=== PATIENT | female | born 1945 | race Caucasian/White ===

== ENCOUNTER 2020-03-27 16:39 | Emergency (ER) | payer OTHER, MEDICARE ==
--- OUTSIDE RECORDS SUMMARY | 2020-03-27 16:42 | XMS REPORT | Continuity of Care Document ---
:[address] [facility] t Address [address] [place] [address] Care Team Providers Name Role Phone Radiology Attending Clinician Unavailable Doctor Unassigned, Name Attending Clinician Unavailable Problems This patient has no known problems. Allergies, Adverse Reactions, Alerts Allergy Allergy Status Severity Reaction(s) Onset Inactive Treating Comm ents Source Name Type Date Date Clinician Tramadol Adverse Active Rash [facility] HCl [facility] Codeine Adverse Active sick in [facility] Sulfate Reaction stomach [facility] Medications Ordered Filled Start Stop Current Ordering Indication Dosage Frequency Signature Comments Components Source Medication Medication Date Date Medication? Clinician (SIG) Name Name Olmesartan Olmesartan Yes Marvin 1/[address] [facility] Medoxomil Medoxomil [facility] Amlodipine Amlodipine Yes Marvin 1/[address] [facility] Besylate Besylate [facility] Acyclovir Acyclovir Yes Marvin 1-[address] [facility] tablets [facility] Atorvastati Atorvastati Yes Marvin [address] [facility] n Calcium n Calcium [facility] Daily Daily Yes Marvin not [facility] Vitamins Vitamins [facility] defined [facility] Loratadine Loratadine Yes Marvin [address] [facility] Fiber Fiber Yes Marvin not [facility] Choice Choice [facility] defined [facility] Ibuprofen Ibuprofen Yes Marvin not [facility] Aspir-81 Aspir-81 Yes Marvin [address] [facility]ics Alphagan P Alphagan P Yes Marvin [address] [facility] Equate Equate Yes Marvin not [facility] Procedures This patient has no known procedures. Encounters Start End Encounter Admission Attending Care Care Encounter Source Date/Time Date/Time Type Type Clinicians Facility Department ID 2020-03-25 2020-03-25 Outpatient [facility] [id number] [facility] 2020-03-24 2020-03-24 [facility] [id number] [facility] 2020-03-18 2020-03-18 Out[facility] [id number] [facility] 2020-02-04 2020-02-04 Out[facility] [id number] [facility] 2020-01-24 2020-01-24 Out[facility] [id number] [facility] 2020-01-14 2020-01-14 [facility] Radiology [facility] [id number] 11:45:29 23:59:00 Encounter [place] [id number] [place] [id number] [place] [id number] 2020-01-14 2020-01-14 Orders Doctor ROSS [id number] 00:00:00 00:00:00 Only Unassigned, MARIA [id number] [place] [facility] [id number] 2019-11-13 2019-11-13 [facility] [id number] [facility] 15:40:00 15:40:00 [facility] 2019-09-20 2019-09-20 [facility] [id number] [address] 07:38:00 07:38:00 [facility] 2019-08-22 2019-08-22 [facility] [id number] [address] 13:35:00 13:35:00 [facility] 2019-08-19 2019-08-19 [facility] [id number] [address] 13:23:00 13:23:00 [facility] 2019-08-12 2019-08-12 [facility] [id number] 15:01:00 15:01:00 [facility] 2019-08-08 2019-08-08 [facility] [id number] [address] 13:00:00 13:00:00 [facility] 2019-08-08 2019-08-08 [facility] [id number] 13:00:00 13:00:00 [facility] 2019-06-04 2019-06-04 [facility] [id number] 10:49:00 10:49:00 [facility] Results This patient has no known results.
--- OUTSIDE RECORDS SUMMARY | 2020-03-27 16:42 | XMS REPORT ---
:1945 Author Organization [facility] Address [address] [place], [address] [place] [address] Care Team Providers Name Role Phone Alexander Unavailable [phone] PROBLEMS Type Condition ICD9-CM NAF71-LS Onset Condition SNOMED Code Notes Code Code Dates Status Problem Non-seasonal J30.89 Active 31342934 allergic rhinitis, unspecified trigger Problem CLL (chronic C91.10 Active 84693919 lymphocytic leukemia) Problem Constipation, K59.00 Active 41403870 unspecified constipation type Problem Herpes zoster with B02.30 Active 211308039 ophthalmic complication, unspecified herpes zoster eye disease Problem Tinnitus, H93.19 Active 62137286 unspecified laterality Problem Primary M15.0 Active 727703079 osteoarthritis involving multiple joints Problem Primary insomnia F51.01 Active 0021228 Problem Mixed E78.2 Active 071529136 hyperlipidemia Problem Essential I10 Active 84803640 hypertension ALLERGIES Allergen (clinical Drug/Non Drug Reaction Allergy Type Onset Date S tatus drug ingredient) Allergy documented on EMR codeine Codeine sick in stomach Drug Allergy Active Sulfate(NDC Code:[address]-37 ) tramadol Tramadol HCl(ND Rash Drug Allergy Active Code:[address]-66 ) ENCOUNTERS from 1945 to 2020-03-26 Encounter Location Date Provider [facility] [address], [place] [address] IMMUNIZATIONS No Information SOCIAL HISTORY Tobacco Use: Social History Observation Description Date Details (start date - stop date) Former Smoker Sex Assigned At : Social History Observation Description Sex Assigned At Unknown Alcohol Screen Question Answer Notes Did you have a drink containing alcohol in the past Yes year? Points 1 Interpretation Negative How often did you have a drink containing alcohol in Monthly or less (1 point) the past year? Tobacco Use/Smoking Question Answer Notes Are you a former smoker REASON FOR REFERRAL No Information VITAL SIGNS No information MEDICATIONS Medication SIG (Take, Route, Notes Start Date End Date Status Frequency, Duration) Amlodipine Besylate 5 MG 1 tablet Orally Once a Active day for 90 days Ibuprofen Active Acyclovir 400 MG 1-3 tablets Orally Once a Active day Atorvastatin Calcium 40 MG 1 tablet Orally Once a Active day for 90 days Loratadine 10 MG 1 tablet Orally Once a Active day Equate Active Daily Vitamins Active Alphagan P 0.1 % 1 drop into affected eye Active Ophthalmic every 8 hrs Olmesartan Medoxomil 40 MG 1 tablet Orally Once a Active day for 90 days Aspir-81 81 MG 1 tablet Orally Once a Active day Fiber Choice Active PROCEDURES No Information RESULTS No Results REASON FOR VISIT BP, Olmesartan dose MEDICAL (GENERAL) HISTORY Type Description Date Surgical History knee surgery-meniscus 2010 Goals Section No Information Health Concerns No Information MEDICAL EQUIPMENT No Information MENTAL STATUS No Information FUNCTIONAL STATUS No Information ASSESSMENTS No Information PLAN OF TREATMENT No Information Insurance Providers Payer Name Payer Address Payer Insured Patient Coverage Cover age Phone Name Relationship to Start Date End Date Insured [facility] [address] [phone] Donna Main self 2019 [facility] [address] [phone] MEDICARE Attn Part B [id number] Donna Main self 2009 [facility] Claims [address] [facility] [address]
--- NOTE | 2020-03-27 21:00 | RAD REPORT ---
EXAM DESCRIPTION: RAD - Chest Single View - 03/27/2020 8:22 pm CLINICAL HISTORY: PALPITATIONS COMPARISON: Two view chest October 2016 TECHNIQUE: AP portable chest image was obtained 03/27/2020 8:22 pm . FINDINGS: Lungs are clear of acute finding. Heart and vasculature are normal. No measurable pleural effusion and no pneumothorax. No acute bony abnormality seen. No acute aortic findings suspected. IMPRESSION: No acute cardiopulmonary process.
[2020-03-27 21:17] LABS: Absolute Lymphocytes (CBC) 3.2 K/uL (0.7-4.9); Basophils % 0.5 % (0-1.3); Hematocrit 37.4 % (36.0-45.0); Lymphocytes % 36.7 % (15.3-44.8); MPV 8.1 fL (7.6-11.3); RBC Red Blood Cell Count 4.21 M/uL (3.86-4.86)
[2020-03-27 21:44] LABS: ALT/SGPT 31 U/L (12-78); AST/SGOT 16 U/L (15-37); Albumin 4.1 g/dL (3.4-5.0); Alkaline Phosphatase 91 U/L (45-117); BUN Blood Urea Nitrogen 11 mg/dL (7-18); Bicarbonate 26 mmol/L (21-32); Bilirubin Direct 0.2 mg/dL (0-0.2); Bilirubin Total 0.9 mg/dL (0.2-1.0); Glucose Level 96 mg/dL (74-106); Lipase 124 U/L (73-393); Magnesium 2.4 mg/dL (1.8-2.4); NT PRO-BNP 66 pg/mL (<450); Potassium 3.9 mmol/L (3.5-5.1); Protein, Total 7.7 g/dL (6.4-8.2); Sodium Level 136 mmol/L (136-145); Troponin (Emerg Dept Use Only) 0.02 ng/mL (0.0-0.045)
--- NOTE | 2020-03-27 23:08 | ER ---
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 And I feel real queazy and ca1 a little nauseous and I feel my heart racing. I was in [place] on Monday for the same thing. Coronavirus screen: Client denies travel out of the [place] in the last 14 days. Ebola Screen: Patient negative for fever greater than or equal to 101.5 degrees Fahrenheit, and additional compatible Ebola Virus Disease symptoms Patient denies exposure to infectious person. Patient denies travel to an Ebola-affected area in the 21 days before illness onset. No symptoms or risks identified at this time. Initial Sepsis Screen: Does the patient meet any 2 criteria? No. Patient's initial sepsis screen is negative. Does the patient have a suspected source of infection? No. Patient's initial sepsis screen is negative. Risk Assessment: Do you want to hurt yourself or someone else? Patient reports no desire to harm self or others. Onset of symptoms was March 27, 2020. 16:46 Method Of Arrival: Ambulatory ca1 16:46 Acuity: SUZETTE 3 ca1 Historical: - Allergies: 16:52 Codeine; ca1 - Home Meds: 16:52 Acyclovir Oral [Active]; atorvastatin 40 mg oral tab 1 tab once daily [Active]; ca1 olmesartan oral 40 mg oral 1 tab once daily [Active]; amlodipine 5 mg tab 1 tab once daily [Active]; - PMHx: 16:52 Hypertension; High Cholesterol; ca1 - Immunization history:: Pneumococcal vaccine is up to date, Flu vaccine is up to date. - Social history:: Smoking status: Patient denies any tobacco usage or history of. Screenin:00 Abuse screen: Denies threats or abuse. Denies injuries from another. Nutritional wh screening: No deficits noted. Tuberculosis screening: No symptoms or risk factors identified. Fall Risk None identified. Assessment: 20:00 General: Appears in no apparent distress. Behavior is calm, cooperative, appropriate wh for age. Pain: Denies pain. Neuro: Level of Consciousness is awake, alert, obeys commands, Oriented to person, place, time, situation. Cardiovascular: Heart tones S1 S2. Cardiovascular: Reports palpitations, Rhythm is sinus rhythm. Respiratory: Airway is patent Respiratory effort is even, unlabored, Respiratory pattern is regular, symmetrical. GI: No signs and/or symptoms were reported involving the gastrointestinal system. : No signs and/or symptoms were reported regarding the genitourinary system. EENT: No signs and/or symptoms were reported regarding the EENT system. Derm: Skin is intact, is healthy with good turgor, Skin is pink, warm \T\ dry. normal. Musculoskeletal: Circulation, motion, and sensation intact. 21:30 Reassessment: Patient appears in no apparent distress at this time. No changes from previously documented assessment. Patient and/or family updated on plan of care and expected duration. Pain level reassessed. Patient is alert, oriented x 3, equal unlabored respirations, skin warm/dry/pink. 23:00 Reassessment: Patient appears in no apparent distress at this time. Patient and/or family updated on plan of care and expected duration. Pain level reassessed. Patient is alert, oriented x 3, equal unlabored respirations, skin warm/dry/pink. 23:17 Reassessment: Patient and/or family updated on plan of care and expected duration. Pain ea level reassessed. Patient is alert, oriented x 3, equal unlabored respirations, skin warm/dry/pink. Discharge instruction given to patient, verbalized the understanding of instruction. Pt left ED ambulatory tolerating well. Pt awaiting in the lobby. Vital Signs: 16:46 BP 146 / 84; Pulse 78; Resp 17 S; Temp 97.7(TE); Pulse Ox 100% on R/A; Weight 78.47 kg ca1 (R); Height 5 ft. 4 in. (162.56 cm) (R); Pain 0/10; 21:00 BP 146 / 73; Pulse 71; Resp 18; Pulse Ox 98% on R/A; wh 22:00 BP 138 / 78; Pulse 66; Resp 18; Pulse Ox 99% on R/A; wh 23:00 BP 157 / 88; Pulse 74; Resp 18; Pulse Ox 99% on R/A; wh 16:46 Body Mass Index 29.70 (78.47 kg, 162.56 cm) ca1 ED Course: 16:41 Patient arrived in ED. ag5 16:50 Triage completed. ca1 16:52 Arm band placed on right wrist. [facility] 19:50 Shaun Dumont MD is Attending Physician. [facility] 19:58 Paolo Amaya, RN is Primary Nurse. 20:00 Patient has correct armband on for positive identification. Placed in gown. Bed in low wh position. Call light in reach. Side rails up X 1. school lunch monitor on. Pulse ox on. NIBP on. 20:15 Inserted saline lock: 22 gauge in right forearm, using aseptic technique. by [facility] Tech. 20:19 XRAY Chest (1 view) In Process Unspecified. EDMS 23:07 Gordon Lott MD is Referral Physician. [facility] 23:13 No provider procedures requiring assistance completed. IV discontinued, intact, wh bleeding controlled, No redness/swelling at site. Administered Medications: No medications were administered Outcome: 23:08 Discharge ordered by . [facility] 23:17 Discharged to home ambulatory, with family. ea 23:17 Condition: stable 23:17 Discharge instructions given to patient, Instructed on discharge instructions, follow up and referral plans. Demonstrated understanding of instructions, follow-up care. 23:18 Patient left the ED. ea Signatures: Dispatcher [employer] EDHailey Osborne RN RN ea Habalo, Winsy, BRYSON MASSEY Wanda Cortez RN RN [facility] Roger Cunha 5 Shaun Dumont MD MD [facility]
--- NOTE | 2020-03-27 23:09 | EDPHYS ---
Physician Documentation [facility] Name: Abby Main Age: 74 yrs Sex: Female : 1945 Arrival Date: 03/27/2020 Time: 16:41 Bed 7 Private MD: ED Physician Shaun Dumont HPI: 03/27 20:10 This 74 yrs old Female presents to ER via Ambulatory with complaints of mh7 Increased Heart Rate, High Blood Pressure. 20:10 The patient presents with a history of heart racing. Context: The symptoms occur at mh7 rest. Onset: The symptoms/episode began/occurred last week. Duration: The patient or guardian reports multiple episodes, that are intermittent, that wax and wane. Modifying factors: The symptoms are aggravated by anxiety, The symptoms are alleviated by nothing. Associated signs and symptoms: Pertinent positives: nausea, Pertinent negatives: chest pain, cough, fever, lightheadedness, SOB, syncope, near-syncope, unusual stressors, vertigo, vomiting. Severity of symptoms: At their worst the symptoms were moderate last night, in the emergency department the symptoms have improved moderately. The patient has experienced similar episodes in the past, several times. Seen at an ER last week for the same complaint with no findings. Historical: - Allergies: 16:52 Codeine; ca1 - Home Meds: 16:52 Acyclovir Oral [Active]; atorvastatin 40 mg oral tab 1 tab once daily [Active]; ca1 olmesartan oral 40 mg oral 1 tab once daily [Active]; amlodipine 5 mg tab 1 tab once daily [Active]; - PMHx: 16:52 Hypertension; High Cholesterol; ca1 - Immunization history:: Pneumococcal vaccine is up to date, Flu vaccine is up to date. - Social history:: Smoking status: Patient denies any tobacco usage or history of. ROS: 20:10 Constitutional: Negative for fever, chills, and weight loss, Eyes: Negative for injury, mh7 pain, redness, and discharge, ENT: Negative for injury, pain, and discharge, Neck: Negative for injury, pain, and swelling, Respiratory: Negative for shortness of breath, cough, wheezing, and pleuritic chest pain, Back: Negative for injury and pain, : Negative for injury, bleeding, discharge, and swelling, MS/Extremity: Negative for injury and deformity, Skin: Negative for injury, rash, and discoloration, Neuro: Negative for headache, weakness, numbness, tingling, and seizure, Psych: Negative for depression, anxiety, suicide ideation, homicidal ideation, and hallucinations, Allergy/Immunology: Negative for hives, rash, and allergies, Endocrine: Negative for neck swelling, polydipsia, polyuria, polyphagia, and marked weight changes, Hematologic/Lymphatic: Negative for swollen nodes, abnormal bleeding, and unusual bruising. Exam: 20:10 Constitutional: This is a well developed, well nourished patient who is awake, alert, mh7 and in no acute distress. Head/Face: Normocephalic, atraumatic. Eyes: Pupils equal round and reactive to light, extra-ocular motions intact. Lids and lashes normal. Conjunctiva and sclera are non-icteric and not injected. Cornea within normal limits. Periorbital areas with no swelling, redness, or edema. Neck: Trachea midline, no thyromegaly or masses palpated, and no cervical lymphadenopathy. Supple, full range of motion without nuchal rigidity, or vertebral point tenderness. No Meningismus. Chest/axilla: Normal chest wall appearance and motion. Nontender with no deformity. No lesions are appreciated. Cardiovascular: Regular rate and rhythm with a normal S1 and S2. No gallops, murmurs, or rubs. Normal PMI, no JVD. No pulse deficits. Respiratory: Lungs have equal breath sounds bilaterally, clear to auscultation and percussion. No rales, rhonchi or wheezes noted. No increased work of breathing, no retractions or nasal flaring. Abdomen/GI: Soft, non-tender, with normal bowel sounds. No distension or tympany. No guarding or rebound. No evidence of tenderness throughout. Back: No spinal tenderness. No costovertebral tenderness. Full range of motion. Skin: Warm, dry with normal turgor. Normal color with no rashes, no lesions, and no evidence of cellulitis. MS/ Extremity: Pulses equal, no cyanosis. Neurovascular intact. Full, normal range of motion. Neuro: Awake and alert, GCS 15, oriented to person, place, time, and situation. Cranial nerves II-XII grossly intact. Motor strength 5/5 in all extremities. Sensory grossly intact. Cerebellar exam normal. Normal gait. Psych: Awake, alert, with orientation to person, place and time. Behavior, mood, and affect are within normal limits. 23:09 ECG was reviewed by the Attending Physician. [facility] Vital Signs: 16:46 BP 146 / 84; Pulse 78; Resp 17 S; Temp 97.7(TE); Pulse Ox 100% on R/A; Weight 78.47 kg ca1 (R); Height 5 ft. 4 in. (162.56 cm) (R); Pain 0/10; 21:00 BP 146 / 73; Pulse 71; Resp 18; Pulse Ox 98% on R/A; wh 22:00 BP 138 / 78; Pulse 66; Resp 18; Pulse Ox 99% on R/A; wh 23:00 BP 157 / 88; Pulse 74; Resp 18; Pulse Ox 99% on R/A; wh 16:46 Body Mass Index 29.70 (78.47 kg, 162.56 cm) ca1 MDM: 23:06 Differential diagnosis: arrythmia, dehydration, stress disorder, Palpitations. Data [facility] reviewed: vital signs, nurses notes, lab test result(s), cardiac enzymes, CBC, electrolytes, urinalysis, EKG, radiologic studies, plain films. Data interpreted: Pulse oximetry: on room air is 100 %. Interpretation: normal. 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 Response to treatment: the patient's symptoms have resolved after treatment, the patient's blood pressure is in an acceptable range, mental status has returned to baseline, the patient no longer shows bradycardia, the patient is not short of breath, the patient is not tachycardic, the patient's pain is gone, the patient's temperature has normalized, the patient is now symptom free, patient is well hydrated. 23:08 Patient medically screened. [facility] 03/27 20:02 Order name: Basic Metabolic Panel [facility] 03/27 20: Order name: CBC with Diff; Complete Time: 21:32 7 03/27 20:02 Order name: LFT's; Complete Time: 21:56 7 03/27 20:02 Order name: Magnesium; Complete Time: 21:56 03/27 20:02 Order name: NT PRO-BNP; Complete Time: 21:56 7 03/27 20:02 Order name: PT-INR; Complete Time: 21:32 7 03/27 20:02 Order name: Troponin (emerg Dept Use Only); Complete Time: 21:56 03/27 20:02 Order name: XRAY Chest (1 view); Complete Time: 21:06 7 03/27 20:02 Order name: EKG; Complete Time: 20:03 7 03/27 20:02 Order name: Cardiac monitoring; Complete Time: 20:35 7 03/27 20:02 Order name: TSH; Complete Time: 21:56 7 03/27 20:03 Order name: Lipase; Complete Time: 21:56 [facility] 03/27 20:03 Order name: Basic Metabolic Panel; Complete Time: 21:56 [facility] 03/27 21:56 Order name: D-Dimer; Complete Time: 22:55 7 03/27 20:02 Order name: EKG - Nurse/Tech; Complete Time: 20:35 7 03/27 20:02 Order name: IV Saline Lock; Complete Time: 20:35 7 03/27 20:02 Order name: Labs collected and sent; Complete Time: 20:57 7 03/27 20:02 Order name: O2 Per Protocol; Complete Time: 20:35 03/27 20:02 Order name: O2 Sat Monitoring; Complete Time: 20:35 mh7 EC:09 Rate is 69 beats/min. Rhythm is regular, Normal Sinus Rhythm. QRS Albert is Normal. [place] mh7 interval is normal. QRS interval is normal. QT interval is normal. No Q waves. T waves are Normal. No ST changes noted. Clinical impression: Normal ECG. Administered Medications: No medications were administered Disposition: 03/27/20 23:08 Discharged to Home. Impression: Palpitations, Hypertension. - Condition is Stable. - Discharge Instructions: Hypertension, [id number], Palpitations, [id number]. - Medication Reconciliation Form, Thank You Letter, Antibiotic Education, Prescription Opioid Use form. - Follow up: Private Physician; When: 1 - 2 days; Reason: Worsening of condition, Recheck today's complaints, Continuance of care, Re-evaluation by your physician. Follow up: Gordon Lott MD; When: 1 - 2 days; Reason: Worsening of condition, Recheck today's complaints. - Problem is an ongoing problem. - Symptoms have improved. Signatures: Dispatcher [employer] EDHailye Osborne RN RN ea Acob, Cheryl, RN RN ca1 Holmes, Maurice, MD MD mh7 Corrections: (The following items were deleted from the chart) 23:18 23:08 03/27/2020 23:08 Discharged to Home. Impression: Palpitations; Hypertension. ea Condition is Stable. Forms are Medication Reconciliation Form, Thank You Letter, Antibiotic Education, Prescription Opioid Use. Follow up: Private Physician; When: 1 - 2 days; Reason: Worsening of condition, Recheck today's complaints, Continuance of care, Re-evaluation by your physician. Follow up: Gordon Lott; When: 1 - 2 days; Reason: Worsening of condition, Recheck today's complaints. Problem is an ongoing problem. Symptoms have improved. mh7
[2020-03-27 23:26] VITALS: TEMP 97.7
[2020-03-27 23:27] VITALS: O2SAT 99
[2020-03-27 23:28] VITALS: BP 157/88
== END 2020-03-27 23:18 | disposition home or self-care (01) ==
LOC: ER 16:39
DX: I10 Essential (primary) hypertension (principal); E78.00 Pure hypercholesterolemia, unspecified; Z88.5 Allergy status to narcotic agent
CPT/HCPCS: 36415; 71045; 80048; 80076; 83690; 83735; 83880; 84443; 84484; 85025; 85379; 85610; 93005; 99284

== ENCOUNTER 2020-04-14 14:51 | Observation (INO) | payer OTHER, MEDICARE ==
--- NOTE | 2020-04-14 18:17 | RAD REPORT ---
EXAM DESCRIPTION: RAD - Chest Single View - 04/14/2020 6:03 pm CLINICAL HISTORY: syncope COMPARISON: Portable March 27 TECHNIQUE: AP portable chest image was obtained 04/14/2020 6:03 pm . FINDINGS: No focal lung parenchymal process. Interstitial pattern is prominent but stable. No failur e or volume overload. Calcified granulomas are seen. Heart and vasculature are normal. No measurable pleural effusion and no pneumothorax. No acute bony abnormality seen. No acute aortic findings suspec snehal. IMPRESSION: No acute cardiopulmonary process. No significant change from comparison study.
[2020-04-14 18:25] LABS: Urine Bacteria <20 /HPF (<20); Urine RBC NONE SEEN /HPF (NONE SEEN)
[2020-04-14] MEDS ORDERED: MECLIZINE HCL 12.5 MG TAB ONE (18:25)
[2020-04-14] MEDS ORDERED: ONDANSETRON 4 MG/2 ML VIAL ONE ×2 (18:25→20:10)
[2020-04-14 18:54] LABS: Urine Blood NEGATIVE (NEG); Urine Glucose NEGATIVE (NEG); Urine Protein 2+ (NEG)
[2020-04-14 19:11] LABS: Absolute Lymphocytes (CBC) 2.3 K/uL (0.7-4.9); Basophils % 0.3 % (0-1.3); Lymphocytes % 18.3 % (15.3-44.8); MPV 8.1 fL (7.6-11.3); Protime INR 0.95; RBC Red Blood Cell Count 4.43 M/uL (3.86-4.86)
[2020-04-14 19:16] LABS: Albumin 4.4 g/dL (3.4-5.0); Bilirubin Direct 0.3 mg/dL (0-0.2); Magnesium 2.4 mg/dL (1.8-2.4); Potassium 4.1 mmol/L (3.5-5.1); Protein, Total 7.8 g/dL (6.4-8.2); Troponin (Emerg Dept Use Only) 0.03 ng/mL (0.0-0.045)
--- NOTE | 2020-04-14 19:53 | RAD REPORT ---
EXAM DESCRIPTION: CT - CTHCSPWOC - 04/14/2020 7:34 pm CLINICAL HISTORY: syncope, dizziness, hypotension COMPARISON: Neck Angio dated 04/14/2020 TECHNIQUE: Axial 5 mm thick images of the head were obtained. Axial 2 mm thick images of the cervic al spine were obtained with sagittal and coronal reconstruction images generated and reviewed. All CT scans are performed using dose optimization technique as appropriate and may include automated exposure control or mA/KV adjustment according to patient size. FINDINGS: No intracranial hemorrhage, mass, edema or acute intracranial finding. No suspicion for ac [place] infarction. No extra-axial fluid collections. Mastoid air cells and paranasal sinuses are clear. No globe or orbit abnormality seen. Arterial calcifications are present. Atrophy and chronic ischemic changes. Ventricles are normal. Cervical body height and alignment are normal. C5-6 disc space narrowing present with posterior endpl ate spurring. Facet degenerative changes are present. There is mild right foraminal encroachment at C 3-4 and C4-5. Significant right foraminal stenosis at C5-6. Large central canal bone spur right later al margin may impact on the cord. No fracture or acute bony abnormality. Central canal detail is inh erently limited. No paraspinal mass or hematoma. IMPRESSION: Negative CT head examination for acute or significant finding. Cervical spine degenerative changes are present. Changes are pronounced at C5-6 where there is signif icant right foraminal stenosis and possible flattening of the right side of the cord.
--- NOTE | 2020-04-14 19:55 | RAD REPORT ---
EXAM DESCRIPTION: CT - Head angio - 04/14/2020 7:34 pm CLINICAL HISTORY: SYNCOPE, stroke-like symptoms TECHNIQUE: During dynamic enhancement using nonionic IV contrast, axial 1 millimeter thick images of the head were obtained. Sagittal and axial reconstruction images were generated using MIP technique and reviewed. All CT scans are performed using dose optimization technique as appropriate and may include automated exposure control or mA/KV adjustment according to patient size. COMPARISON: CT head same date FINDINGS: No aneurysm or vascular malformation identified. Major venous sinuses are patent. No stenosis, named branch occlusion, vasculitis or other significant vascular finding identifiable. P atient has a large right-sided posterior communicating artery is a normal variant. Internal carotid a therosclerotic calcifications are present without luminal narrowing. IMPRESSION: Negative CT angio head examination for acute or significant finding.
--- NOTE | 2020-04-14 19:56 | RAD REPORT ---
EXAM DESCRIPTION: CT - Neck Angio - 04/14/2020 7:34 pm CLINICAL HISTORY: syncope after eppley maneuver TECHNIQUE: During dynamic enhancement using nonionic IV contrast, axial 2 mm thick images of the nec k were obtained. Sagittal and axial reconstruction images were generated using MIP technique and revi ewed. All CT scans are performed using dose optimization technique as appropriate and may include automated exposure control or mA/KV adjustment according to patient size. COMPARISON: CT head same date, CT angio head same date FINDINGS: No aneurysm or vascular malformation identified. No carotid or vertebral dissection. No aortic arch or great vessel origin abnormality seen. Vertebral artery origins unremarkable as well . No stenosis, vasculitis or other significant carotid artery finding. No focal abnormality of either vertebral artery. Basilar artery is normal. Minimal left carotid bulb calcifications. IMPRESSION: Negative CT angio neck examination for acute significant finding.
[2020-04-14] MEDS ORDERED: NA CHLORIDE 0.9% 250 ML ONE (20:10)
--- NOTE | 2020-04-14 21:20 | ER ---
Nurse's Notes [facility] Name: Abby Main Age: 74 yrs Sex: Female : 1945 Arrival Date: 04/14/2020 Time: 14:53 Bed 13 Private MD: Diagnosis: Syncope and collapse;Hypotension, unspecified;Dizziness and giddiness Presentation: 04/14 15:01 Chief complaint: Patient states: Was at Dr. Mcgrath's for dizziness. States she passed ll1 out. BP was 91/45 upon awakening. Sent for further eval of dizziness and low BP. Coronavirus screen: Client denies travel out of the [place] in the last 14 days. At this time, the client does not indicate any symptoms associated with coronavirus-19. Ebola Screen: Patient denies travel to an Ebola-affected area in the 21 days before illness onset. Initial Sepsis Screen: Does the patient meet any 2 criteria? No. Patient's initial sepsis screen is negative. Does the patient have a suspected source of infection? No. Patient's initial sepsis screen is negative. Risk Assessment: Do you want to hurt yourself or someone else? Patient reports no desire to harm self or others. Onset of symptoms was April 14, 2020. 15:01 Method Of Arrival: Wheelchair ll1 15:01 Acuity: SUZETTE 2 ll1 Historical: - Allergies: 15:00 Codeine; ll1 15:00 Tramadol HCl; ll1 15:00 Cipro PO; ll1 - PMHx: 15:00 High Cholesterol; Hypertension; ll1 - Immunization history:: Flu vaccine is not up to date. - Social history:: Smoking status: Patient denies any tobacco usage or history of. Screenin:15 Abuse screen: Denies threats or abuse. Nutritional screening: No deficits noted. vg1 Tuberculosis screening: No symptoms or risk factors identified. Fall Risk No fall in past 12 months (0 pts). No secondary diagnosis (0 pts). IV access (20 points). Ambulatory Aid- None/Bed Rest/Nurse Assist (0 pts). Gait- Normal/Bed Rest/Wheelchair (0 pts) Mental Status- Oriented to own ability (0 pts). Total Conte Fall Scale indicates No Risk (0-24 pts). Assessment: 17:14 General: Appears in no apparent distress. comfortable, Behavior is calm, appropriate vg1 for age. Pain: Denies pain. Neuro: Level of Consciousness is awake, alert, obeys commands, Oriented to person, place, time, situation. Neuro: Reports dizziness. Cardiovascular: Patient's skin is warm and dry. Respiratory: Airway is patent Respiratory effort is even, unlabored, Respiratory pattern is regular, symmetrical. GI: Reports nausea. : No signs and/or symptoms were reported regarding the genitourinary system. EENT: No signs and/or symptoms were reported regarding the EENT system. Derm: Skin is intact, is healthy with good turgor. Musculoskeletal: Circulation, motion, and sensation intact. 18:52 Reassessment: Patient appears in no apparent distress at this time. No changes from vg1 previously documented assessment. Patient and/or family updated on plan of care and expected duration. Pain level reassessed. Patient is alert, oriented x 3, equal unlabored respirations, skin warm/dry/pink. 19:48 Reassessment: Patient appears in no apparent distress at this time. Patient and/or vg1 family updated on plan of care and expected duration. Pain level reassessed. Patient is alert, oriented x 3, equal unlabored respirations, skin warm/dry/pink. Patient stated still feels nauseated. Provider notified. 19:58 Reassessment: Received VO from Kevin COSTA to administer 4 mg of Zofran IVP x1. vg1 20:49 Reassessment: After orthostatic BP, patient stated feeling nauseated and lightheaded. vg1 Provider notified. 21:08 Reassessment: Received VO from Kevin COSTA to administer Phenergan 12.5 mg IVP x1. vg1 22:18 Reassessment: Received VO from Gerald COSTA to administer 2 mg Valium IVP x1, NS 1000 ml at vg1 75ml/hr, and place O2 2L NC. 23:13 Reassessment: Attempted to call report. vg1 Vital Signs: 15:01 BP 89 / 52; Pulse 63; Resp 16; Temp 97.6; Pulse Ox 97% ; Weight 77.56 kg; Height 5 ft. ll1 4 in. (162.56 cm); Pain 0/10; 17:14 BP 154 / 87; Pulse 80; Resp 16; Pulse Ox 100% on R/A; vg1 18:00 BP 134 / 68; Pulse 80; Resp 18; Pulse Ox 100% on R/A; vg1 19:00 BP 122 / 61; Pulse 77; Resp 16; Pulse Ox 100% on R/A; vg1 20:38 BP 127 / 55 Supine; Pulse 80; vg1 20:41 BP 123 / 63 Sitting; Pulse 80; vg1 20:44 BP 111 / 81 Standing; Pulse 100; vg1 22:00 BP 130 / 80; Pulse 73; Resp 14; Pulse Ox 100% on 2 lpm NC; vg1 23:09 BP 111 / 54; Pulse 70; Resp 18; Pulse Ox 100% on 2 lpm NC; vg1 15:01 Body Mass Index 29.35 (77.56 kg, 162.56 cm) ll1 ED Course: 14:53 Patient arrived in ED. as 14:59 Arm band placed on. ll1 15:02 Triage completed. ll1 17:09 Merry Vaughn, RN is Primary Nurse. vg1 17:15 Patient has correct armband on for positive identification. Bed in low position. Call 1 light in reach. Side rails up X 1. 17:23 Kevin Zamudio PA is PHCP. cp 17:23 Kevin Landis MD is Attending Physician. cp 18:04 XRAY Chest (1 view) In Process Unspecified. EDMS 18:36 Missed attempt(s): 22 gauge in right antecubital area. vg1 18:44 Initial lab(s) drawn, by ED staff, sent to lab. Inserted saline lock: 22 gauge in right vg1 antecubital area, using aseptic technique. Blood collected. Done by Mei MASSEY. 19:34 CT Head Angio In Process Unspecified. EDMS 19:34 CT Neck Angio In Process Unspecified. EDMS 19:34 CT Head C Spine In Process Unspecified. EDMS 21:18 Marcio Shaw is Hospitalizing Provider. cp 23:19 No provider procedures requiring assistance completed. Patient admitted, IV remains in vg1 place. Administered Medications: 18:43 Drug: Meclizine 25 mg Route: PO; vg1 20:48 Follow up: Response: No adverse reaction vg1 18:52 Drug: Zofran (Ondansetron) 4 mg Route: IVP; Site: right antecubital; vg1 19:30 Follow up: Response: No adverse reaction; Nausea unchanged vg1 19:57 Drug: NS 0.9% 250 ml Route: IV; Rate: bolus; Site: right antecubital; vg1 20:47 Follow up: IV Status: Completed infusion; IV Intake: 250ml vg1 19:58 Drug: Zofran (Ondansetron) 4 mg Route: IVP; Site: right antecubital; vg1 20:48 Follow up: Response: Nausea unchanged vg1 21:25 Drug: Phenergan 12.5 mg Route: IVP; Site: right antecubital; vg1 22:16 Follow up: Response: Nausea unchanged vg1 22:37 Drug: NS 0.9% 1000 ml Route: IV; Rate: 75 ml/hr; Site: right antecubital; vg1 23:19 Follow up: IV Status: Infusion continued upon admission vg1 22:37 Drug: Valium 2 mg Route: IVP; Site: right antecubital; vg1 23:19 Follow up: Response: No adverse reaction vg1 Intake: 20:47 IV: 250ml; Total: 250ml. vg1 Outcome: 21:19 Decision to Hospitalize by Provider. cp 23:19 Admitted to Tele accompanied by tech, via wheelchair, room 231, with chart, Report vg1 called to BRYSON Colvin 23:19 Condition: stable 23:19 Instructed on the need for admit. 23:29 Patient left the ED. vg1 Signatures: Dispatcher [employer] Susan Valles Corey, PA PA cp Garcia, Victoria RN RN vg1 Nisa Kim RN RN ll1
--- NOTE | 2020-04-14 21:20 | EDPHYS ---
Physician Documentation [facility] Name: Abby Main Age: 74 yrs Sex: Female : 1945 Arrival Date: 04/14/2020 Time: 14:53 Bed 13 Private MD: ED Physician Kevin Landis HPI: 04/14 17:25 This 74 yrs old Female presents to ER via Wheelchair with complaints of Blood cp Pressure Problem. 17:25 The patient has experienced syncope, lost consciousness. cp 17:25 Onset: The symptoms/episode began/occurred today. Duration: This was a single episode, cp that lasted an unknown period of time. Context: the episode(s) was witnessed, Nurse Practitioner, Patient reports she was at ENT appt with JAY JAY Felton for dizziness. Patient reports having Eply Maneuver performed and when head was turned to right, she lost consciousness for unknown duration. Associated injury: The patient did not suffer any apparent associated injury. Current symptoms: nausea, dizziness. Historical: - Allergies: 15:00 Codeine; ll1 15:00 Tramadol HCl; ll1 15:00 Cipro PO; ll1 - PMHx: 15:00 High Cholesterol; Hypertension; ll1 - Immunization history:: Flu vaccine is not up to date. - Social history:: Smoking status: Patient denies any tobacco usage or history of. ROS: 17:27 Constitutional: Negative for body aches, chills, fever, poor PO intake. cp 17:27 Eyes: Negative for injury, pain, redness, and discharge. cp 17:27 ENT: Negative for ear pain, sore throat, difficulty swallowing, difficulty handling secretions. 17:27 Neck: Negative for pain with movement, pain at rest, stiffness. 17:27 Cardiovascular: Negative for chest pain, edema, palpitations. 17:27 Respiratory: Negative for cough, shortness of breath, wheezing. 17:27 Abdomen/GI: Positive for nausea, Negative for abdominal pain, vomiting, diarrhea, constipation, black/tarry stool, rectal bleeding. 17:27 Back: Negative for pain at rest, pain with movement. 17:27 : Negative for urinary symptoms. 17:27 Skin: Negative for rash. 17:27 Neuro: Positive for dizziness, syncope, Negative for altered mental status, numbness, tingling, weakness. 17:27 All other systems are negative. Exam: 17:27 ECG was reviewed by the Attending Physician. cp 17:30 Constitutional: The patient appears in no acute distress, alert, awake, cp non-diaphoretic, non-toxic, well developed, well nourished. 17:30 Head/Face: Normocephalic, atraumatic. cp 17:30 Eyes: Periorbital structures: appear normal, Pupils: equal, round, and reactive to light and accomodation, Extraocular movements: intact throughout, Conjunctiva: normal, no exudate, no injection, Sclera: no appreciated abnormality. 17:30 ENT: External ear(s): are unremarkable, Ear canal(s): are normal, clear, TM's: dullness, bilaterally, Nose: is normal, Mouth: Lips: moist, Oral mucosa: moist, Posterior pharynx: Airway: no evidence of obstruction, patent. 17:30 Neck: ROM/movement: is normal, is supple, without pain, no range of motions limitations. 17:30 Chest/axilla: Inspection: normal, Palpation: is normal, no crepitus, no tenderness. 17:30 Cardiovascular: Rate: normal, Rhythm: regular, Edema: is not appreciated, JVD: is not appreciated. 17:30 Respiratory: the patient does not display signs of respiratory distress, Respirations: normal, no use of accessory muscles, no retractions, labored breathing, is not present, Breath sounds: are clear throughout, no decreased breath sounds, no stridor, no wheezing. 17:30 Abdomen/GI: Inspection: abdomen appears normal, Bowel sounds: active, all quadrants, Palpation: abdomen is soft and non-tender, in all quadrants. 17:30 Back: pain, is absent, ROM is normal. 17:30 Skin: no rash present. 17:30 Neuro: Orientation: to person, place \T\ time. Mentation: is normal, Cerebellar function: is grossly normal, Motor: moves all fours, strength is normal, Sensation: is normal. Vital Signs: 15:01 BP 89 / 52; Pulse 63; Resp 16; Temp 97.6; Pulse Ox 97% ; Weight 77.56 kg; Height 5 ft. ll1 4 in. (162.56 cm); Pain 0/10; 17:14 BP 154 / 87; Pulse 80; Resp 16; Pulse Ox 100% on R/A; vg1 18:00 BP 134 / 68; Pulse 80; Resp 18; Pulse Ox 100% on R/A; vg1 19:00 BP 122 / 61; Pulse 77; Resp 16; Pulse Ox 100% on R/A; vg1 20:38 BP 127 / 55 Supine; Pulse 80; vg1 20:41 BP 123 / 63 Sitting; Pulse 80; vg1 20:44 BP 111 / 81 Standing; Pulse 100; vg1 22:00 BP 130 / 80; Pulse 73; Resp 14; Pulse Ox 100% on 2 lpm NC; vg1 23:09 BP 111 / 54; Pulse 70; Resp 18; Pulse Ox 100% on 2 lpm NC; vg1 15:01 Body Mass Index 29.35 (77.56 kg, 162.56 cm) ll1 MDM: 17:24 Patient medically screened. briana 18:00 Differential Diagnosis: cardiac arrhythmia, cerebrovascular accident, GI bleed, cp seizure, vasovagal episode. 21:20 Data reviewed: vital signs, nurses notes, lab test result(s), EKG, radiologic studies, cp CT scan, plain films. 21:20 Test interpretation: by ED physician or midlevel provider: ECG, plain radiologic cp studies. Physician consultation: Gerald COSTA was contacted at 21:20, regarding admission, to the telemetry unit. patient's condition. 04/14 17:40 Order name: Basic Metabolic Panel cp 04/14 17:40 Order name: CBC with Diff; Complete Time: 19:43 cp 04/14 19:43 Interpretation: Normal except: WBC 12.80; SANDOR% 78.7; MN% 2.5; NEUT A 10.0. cp 04/14 17:40 Order name: LFT's; Complete Time: 19:43 cp 04/14 20:01 Interpretation: Normal except: BILID 0.3. cp 04/14 17:40 Order name: Magnesium; Complete Time: 19:43 cp 04/14 17:40 Order name: NT PRO-BNP; Complete Time: 19:43 cp 04/14 17:40 Order name: PT-INR; Complete Time: 19:43 cp 04/14 17:40 Order name: CT Head C Spine; Complete Time: 19:59 cp 04/14 17:40 Order name: Troponin (emerg Dept Use Only); Complete Time: 19:43 cp / 17:40 Order name: XRAY Chest (1 view); Complete Time: 19:08 cp 04/14 17:40 Order name: Urine Microscopic Only; Complete Time: 19:08 cp 04/14 17:40 Order name: Basic Metabolic Panel; Complete Time: 19:43 EDMS 04/14 19:43 Interpretation: Normal except: NA 131; CL 94; GLUC 119; GFR 59. cp / 18:35 Order name: Urine Dipstick--Ancillary (enter results); Complete Time: 19:08 hb 04/14 19:08 Interpretation: Normal except: UKET 1+; UPROT 2+; UESTR TRACE. cp / 22:34 Order name: SARS-COV-2 RT PCR EDVA 04/14 17:40 Order name: EKG; Complete Time: 17:41 cp 04/14 17:40 Order name: Cardiac monitoring; Complete Time: 17:41 cp 04/14 17:40 Order name: EKG - Nurse/Tech; Complete Time: 17:41 cp 04/14 17:40 Order name: IV Saline Lock; Complete Time: 18:43 cp 04/14 17:40 Order name: Labs collected and sent; Complete Time: 18:43 cp 04/14 17:40 Order name: O2 Per Protocol; Complete Time: 17:41 cp / 17:41 Order name: CT Head Angio; Complete Time: 19:59 cp 04/14 17:41 Order name: CT Neck Angio; Complete Time: 19:59 cp 04/14 22:09 Order name: CONS Physician Consult EDVA 04/14 17:40 Order name: O2 Sat Monitoring; Complete Time: 17:41 cp 04/14 17:40 Order name: Urine Dipstick-Ancillary (obtain specimen); Complete Time: 17:42 cp EC:27 Rate is 81 beats/min. Rhythm is regular. MI interval is normal. QRS interval is normal. cp QT interval is normal. T waves are Inverted in lead aVR. Interpreted by me. Reviewed by me. Administered Medications: 18:43 Drug: Meclizine 25 mg Route: PO; vg1 20:48 Follow up: Response: No adverse reaction vg1 18:52 Drug: Zofran (Ondansetron) 4 mg Route: IVP; Site: right antecubital; vg1 19:30 Follow up: Response: No adverse reaction; Nausea unchanged vg1 19:57 Drug: NS 0.9% 250 ml Route: IV; Rate: bolus; Site: right antecubital; vg1 20:47 Follow up: IV Status: Completed infusion; IV Intake: 250ml vg1 19:58 Drug: Zofran (Ondansetron) 4 mg Route: IVP; Site: right antecubital; vg1 20:48 Follow up: Response: Nausea unchanged vg1 21:25 Drug: Phenergan 12.5 mg Route: IVP; Site: right antecubital; vg1 22:16 Follow up: Response: Nausea unchanged vg1 22:37 Drug: NS 0.9% 1000 ml Route: IV; Rate: 75 ml/hr; Site: right antecubital; vg1 23:19 Follow up: IV Status: Infusion continued upon admission vg1 22:37 Drug: Valium 2 mg Route: IVP; Site: right antecubital; vg1 23:19 Follow up: Response: No adverse reaction vg1 Disposition: 04/15 07:51 Co-signature as Attending Physician, Kevin Landis MD I agree with the assessment and [facility] plan of care. Disposition: 04/14/20 21:19 Hospitalization ordered by Marcio Shaw for Observation. Preliminary diagnosis are Syncope and collapse, Hypotension, unspecified, Dizziness and giddiness. - Bed requested for Telemetry/MedSurg (observation). - Status is Observation. vg1 - Condition is Stable. - Problem is new. - Symptoms have improved. Signatures: Dispatcher [employer] [facility] Kevin Landis MD MD cha Page, Corey, PA PA cp Garcia, Cindy, BRYSON MASSEY cg Merry Vaughn RN RN vg1 Nisa Kim RN RN ll1 Corrections: (The following items were deleted from the chart) 02 21:51 21:24 CORONAVIRUS+MR.LAB.BRZ ordered. [facility] 22:42 21:19 Hospitalization Ordered by Marcio Shaw for Observation. Preliminary diagnosis cg is Syncope and collapse; Hypotension, unspecified; Dizziness and giddiness. Bed requested for Telemetry/MedSurg (observation). Status is Observation. Condition is Stable. Problem is new. Symptoms have improved. ade 23:29 22:42 04/14/2020 21:19 Hospitalization Ordered by Marcio Shaw for Observation. vg1 Preliminary diagnosis is Syncope and collapse; Hypotension, unspecified; Dizziness and giddiness. Bed requested for Telemetry/MedSurg (observation). Status is Observation. Condition is Stable. Problem is new. Symptoms have improved. cg
[2020-04-14] MEDS ORDERED: PROMETHAZINE INJ 25 MG/ML AMP ONE (21:35)
[2020-04-14] MEDS ORDERED: NA CHLORIDE 0.9% 1,000 ML ONE (22:42)
[2020-04-14] MEDS ORDERED: DIAZEPAM 10 MG/2 ML INJ SYRINGE ONE (22:42)
[2020-04-14] MEDS: NA CHLORIDE 0.9% 1,000 ML IV SCH (23:47)
[2020-04-14] MEDS ORDERED: MECLIZINE HCL 12.5 MG TAB PO PRN (23:47)
[2020-04-14] MEDS ORDERED: ONDANSETRON 4 MG/2 ML VIAL IV PRN (23:47)
--- NOTE | 2020-04-15 00:30 | P.HP ---
Certification for Inpatient Patient admitted to: Observation With expected LOS: <2 Midnights Patient will require the following post-hospital care: None Practitioner: I am a practitioner with admitting privileges, knowledge of patient current condition, hospital course, and medical plan of care. Services: Services provided to patient in accordance with Admission requirements found in Title 42 Section 412.3 of the Code of Federal Regulations <Alli Blankenship - Last Filed: 04/15/20 00:25> Patient History Date of Service: 04/15/20 Primary Care Provider: Lisbeth Munoz Reason for admission: Syncope, Hypotension, Dizziness History of Present Illness: This is a 74-year-old female with history of high blood pressure and high cholesterol that presented to the emergency room this afternoon after experiencing a syncopal episode followed by hypotension while she was at her ENT appointment. Patient stated that she has been lightheaded and nauseous for approximately 1 month. Had set an appointment with her physician so that they could superintendent transmission. She has a history of vertigo in the past and had Apley maneuver at her doctor's office once before which had resolved it. Patient stated that they did it today and then started to feel bad. At that point she had syncopized and was found to be hypotensive. The patient stated over the last couple weeks she has also had increased heart rate and increased blood pressure problems and has been seen twice in the emergency rooms for this. Cardiology had scheduled her for stress test tomorrow and also increased her hydrochlorothiazide 25 mg. Patient was hypotensive upon arrival in the emergency room. Patient was given fluid boluses along with anti medics and meclizine for lightheadedness. The patient had a CT without contrast and CT angio of head and neck with no acute findings. Mild elevation in her white cell count but with history of CLL. No other acute findings on labs. Patient continued to have dizziness/lightheadedness in ED despite treatment. Medicine was consulted at that time for further evaluation and admission. Home medications list reviewed: Yes - Past Medical/Surgical History Has patient received pneumonia vaccine in the past: Yes Diabetic: No - Social History Smoking Status: Never smoker Smoking therapy provided: No Alcohol use: Yes CD- Drugs: No Caffeine use: No Place of Residence: Home <Deepa Blankenshipshua - Last Filed: 04/15/20 00:25> Date of Service: 04/15/20 <nevaeh chris - Last Filed: 04/15/20 15:59> Allergies ciprofloxacin Allergy (Verified 04/14/20 23:47) Nausea/Vomiting codeine Allergy (Verified 04/14/20 23:47) Nausea/Vomiting tramadol Allergy (Verified 04/14/20 23:47) Nausea/Vomiting Review of Systems General: As per HPI Eyes: Unremarkable ENT: Unremarkable Respiratory: Unremarkable Cardiovascular: Palpitations Gastrointestinal: Nausea Genitourinary: Unremarkable Musculoskeletal: Unremarkable Integumentary: Unremarkable Neurological: As per HPI Lymphatics: Unremarkable <Alli Blankenship - Last Filed: 04/15/20 00:25> Physical Examination - Vital Signs Temperature: 97.6 F Blood Pressure: 111/54 Pulse: 70 Respirations: 18 Pulse Ox (%): 97 (RA) - Physical Exam General: Alert, In no apparent distress, Oriented x3, Cooperative HEENT: PERRLA, Mucous membr. moist/pink, EOMI Neck: Supple, 2+ carotid pulse no bruit, JVD not distended, No Thyromegaly Respiratory: Clear to auscultation bilaterally, Normal air movement Cardiovascular: No edema, Normal pulses, Regular rate/rhythm, Normal S1 S2, No gallops, No rubs, No murmurs Capillary refill: <2 Seconds Gastrointestinal: Normal bowel sounds, Soft and benign, Non-distended, No ascites, No tenderness, No masses, No rebound, No guarding Musculoskeletal: No clubbing, No swelling, No contractures, No erythema, No tenderness, No warmth Integumentary: No rashes, No breakdown, No significant lesion, No ten derness/swelling, No erythema, No warmth, No cyanosis Neurological: Normal speech, Normal strength at 5/5 x4 extr, Normal tone, Sensation intact, Cranial nerves 3-12 intact, Normal affect, Other (Unsteady gait) - Studies Laboratory Data (last 24 hrs) 04/14/20 18:40: PT 10.9, INR 0.95 04/14/20 18:40: WBC 12.80 H, Hgb 13.5, Hct 39.0, Plt Count 288 04/14/20 18:40: Sodium 131 L, Potassium 4.1, BUN 17, Creatinine 0.93, Glucose 119 H, Magnesium 2.4, Total Bilirubin 1.0, AST 16, ALT 28, Alkaline Phosphatase 99 <Alli Blankenship - Last Filed: 04/15/20 00:25> - Studies Laboratory Data (last 24 hrs) 04/14/20 18:40: PT 10.9, INR 0.95 04/14/20 18:40: WBC 12.80 H, Hgb 13.5, Hct 39.0, Plt Count 288 04/14/20 18:40: Sodium 131 L, Potassium 4.1, BUN 17, Creatinine 0.93, Glucose 119 H, Magnesium 2.4, Total Bilirubin 1.0, AST 16, ALT 28, Alkaline Phosphatase 99 <nevaeh chris - Last Filed: 04/15/20 15:59> Assessment and Plan - Problems (Diagnosis) (1) Hypotension Status: Acute Plan: Patient had a fluid bolus in the emergency room and will continue on light hydration throughout the evening. Will continue to assess blood pressures throughout the night. Qualifiers: Hypotension type: idiopathic hypotension Qualified Code(s): I95.0 - Idiopathic hypotension (2) Dizziness Status: Acute Plan: Patient will continue to get meclizine every 6 hr as needed for her dizziness. Along with antiemetics. Neurologic checks have also been placed. Because patient has persistent dizziness despite treatment MRI of the brain and C-spine has been added. Patient did have some degenerative changes of the C5-6 area with moderate to marked foraminal stenosis on the right side. We will rule out any acute compression and or ischemia causing the dizziness (3) Syncope Status: Acute Plan: Neurochecks have been placed and vital signs will be continually monitored. Patient has been placed on telemetry as well and cardiology has been consulted as patient was most of a stress test tomorrow. Qualifiers: Syncope type: unspecified Qualified Code(s): R55 - Syncope and collapse Discharge Plan: Home Plan to discharge in: 24 Hours - Advance Directives Does patient have a Living Will: No Does patient have a Durable POA for Healthcare: No - Code Status/Comfort Care Code Status Assessed: No Critical Care: No Time Spent Managing Pts Care (In Minutes): 80 <Alli Blankenship - Last Filed: 04/15/20 00:25> Physician Review: Patient Assessed, Agree with Above Assessment and Plan Physician Review Additional Text: Syncope and collapse Hypotension Plan: Syncope likely secondary to hypotension. Blood pressure responded to IV hydration in the ED. Continue IV hydration with normal saline Cardiology consult. <nevaeh chris - Last Filed: 04/15/20 15:59>
[2020-04-15 03:35] VITALS: BMI 29.6
[2020-04-15 04:40] LABS: Absolute Lymphocytes (CBC) 3.4 K/uL (0.7-4.9); Basophils % 0.4 % (0-1.3); Lymphocytes % 29.9 % (15.3-44.8); MPV 8.3 fL (7.6-11.3); RBC Red Blood Cell Count 4.15 M/uL (3.86-4.86)
[2020-04-15] MEDS ORDERED: ASPIRIN EC 81 MG TAB PO SCH (09:00)
--- OUTSIDE RECORDS SUMMARY | 2020-04-15 10:56 | XMS REPORT | Continuity of Care Document ---
:1945 Author Organization [facility] t Address [address] [place] [address] Care Team Providers Name Role Phone Radiology Attending Clinician Unavailable Doctor Unassigned, Name Attending Clinician Unavailable Problems This patient has no known problems. Allergies, Adverse Reactions, Alerts Allergy Allergy Status Severity Reaction(s) Onset Inactive Treating Comm ents Source Name Type Date Date Clinician Tramadol Adverse Active Rash [facility] HCl Reaction [facility] Codeine Adverse Active sick in [facility] Sulfate Reaction stomach [facility] Medications Ordered Filled Start Stop Current Ordering Indication Dosage Frequency Signature Comments Components Source Medication Medication Date Date Medication? Clinician (SIG) Name Name Olmesartan Olmesartan Yes Marvin 1/[address] [facility] Medoxomil Medoxomil Munoz [facility] Amlodipine Amlodipine Yes Marvin 1/[address] [facility] Besylate Besylate Munoz [facility] Acyclovir Acyclovir Yes Marvin 1-[address] [facility] Munoz tablets [facility] Atorvastati Atorvastati Yes Marvin [address] [facility] n Calcium n Calcium Munoz [facility] Daily Daily Yes Marvin not [facility] Vitamins Vitamins Munoz defined [facility] Loratadine Loratadine Yes Marvin [address] [facility] Munoz [facility] Fiber Fiber Yes Marvin not [facility] Choice Choice Munoz defined [facility] Ibuprofen Ibuprofen Yes Marvin not [facility] Munoz defined [facility] - Yes Marvin [address] [...] Date/Time Type Type Clinicians Facility Department ID 2020-04-14 2020-04-14 Outpatient [facility] [id number] [facility] 2020-04-10 2020-04-10 Outpatient [facility] [id number] [facility] 2020-04-03 2020-04-03 Outpatient [facility] [id number] [facility] 2020-03-27 2020-03-27 Outpatient [facility] [id number] [facility] 2020-03-25 2020-03-25 Outpatient [facility] [id number] [facility] 2020-03-24 2020-03-24 Outpatient [facility] [id number] [facility] 2020-03-18 2020-03-18 Outpatient [facility] [id number] [facility] 2020-02-04 2020-02-04 Outpatient [facility] [id number] [facility] 2020-01-24 2020-01-24 Outpatient [facility] [id number] [facility] Clin[facility] 2020-01-14 2020-01-14 Hospital Radiology [facility] [id number] 11:45:29 23:59:00 Encounter [place] [id number] [place] [id number] [place] [id number] 2020-01-14 2020-01-14 Orders Doctor ROSS [id number] 00:00:00 00:00:00 Only Unassigned, MARIA [id number] [place] [id number] 2019-11-13 2019-11-13 [facility] [id number] [facility] 15:40:00 15:40:00 [facility] Medicine Outpati ent Clinics 2019-09-20 2019-09-20 [facility] [id number] [facility] [address] 07:38:00 07:38:00 t [facility] Medicine Medicine Outpati ent Clinics 2019-08-22 2019-08-22 [facility] [id number] [address] 13:35:00 13:35:00 t [facility] Medicine Medicine Outpati ent Clinics 2019-08-19 2019-08-19 [facility] [id number] 13:23:00 13:23:00 t [facility] Medicine Medicine Outpati ent Clinics 2019-08-12 2019-08-12 [facility] [id number] 15:01:00 15:01:00 t [employer] [facility] Medicine l Medicine Outpati ent Clinics 2019-08-08 2019-08-08 [facility] [id number] 13:00:00 13:00:00 t [facility] Medicine l Medicine Outpati ent Clinics 2019-08-08 2019-08-08 [facility] [id number] 13:00:00 13:00:00 t [facility] 2019-06-04 2019-06-04 Outpatient [facility] [id number] [facility] 10:49:00 10:49:00 [facility] ent Clinics Results This patient has no known results.
--- OUTSIDE RECORDS SUMMARY | 2020-04-15 10:57 | XMS REPORT ---
:1945 Author Organization [facility] Address [address] [place], [place]. [address] [place] [address] Care Team Providers Name Role Phone Munoz Unavailable [phone] PROBLEMS Type Condition ICD9-CM [id number] Onset Condition W/U Status Risk SNOM ED Notes Code Code Dates Status Code Problem Non-seasonal J30.89 Active confirmed 1803514 4 allergic rhinitis, unspecified trigger Problem CLL (chronic C91.10 Active confirmed 8363094 6 lymphocytic leukemia) Problem Constipation, K59.00 Active confirmed 412384 08 unspecified constipation type Problem Herpes zoster B02.30 Active confirmed 806883 006 with ophthalmic complication, unspecified herpes zoster eye disease Problem Tinnitus, H93.19 Active confirmed 67556926 unspecified laterality Problem Primary M15.0 Active confirmed 695161987 osteoarthriti s involving multiple joints Problem Primary F51.01 Active confirmed 1110307 insomnia Problem Mixed E78.2 Active confirmed 091046077 hyperlipidemi a Problem Essential I10 Active confirmed 54123407 hypertension ALLERGIES Allergen (clinical Drug/Non Drug Reaction Allergy Type Onset Date S tatus drug ingredient) Allergy documented on EMR codeine Codeine sick in stomach Drug Allergy Active Sulfate(NDC Code:[address]-17 ) tramadol Tramadol HCl(ND Rash Drug Allergy Active Code:[address]-53 ) ENCOUNTERS from 1945 to 2020-04-10 Encounter Location Date Provider Diagnosis [facility] [place] [address] [place] Apr, Marvin Munoz Mixed hyp erlipidemia Drive Family [address] [place], [address] [place] [address] hypertension I 10 IMMUNIZATIONS No Information SOCIAL HISTORY Tobacco Use: [...] Start Date End Date Status Frequency, Duration) Alphagan P 0.1 % 1 drop into affected eye Active Ophthalmic every 8 hrs Ibuprofen Active Acyclovir 400 MG 1-3 tablets Orally Once a Active day Atorvastatin Calcium 40 MG 1 tablet Orally Once a Active day for 90 days Fiber Choice Active Loratadine 10 MG 1 tablet Orally Once a Active day Daily Vitamins Active Aspir-81 81 MG 1 tablet Orally Once a Active day Amlodipine Besylate 5 MG 1 tablet Orally Once a Active day for 90 days Equate Active Olmesartan Medoxomil 40 MG 1 tablet Orally Once a Active day for 90 days PROCEDURES No Information RESULTS No Results REASON FOR VISIT Refill MEDICAL (GENERAL) HISTORY Type Description Date Surgical History knee surgery-meniscus 2010 Goals Section No Information Health Concerns No Information MEDICAL EQUIPMENT No Information MENTAL STATUS No Information FUNCTIONAL STATUS No Information ASSESSMENTS Encounter Date Diagnosis Assessment Notes Treatment Notes Treatm ent Clinical Notes Apr, Mixed hyperlipidemia (ICD-10 - E78.2) Apr, Essential hypertension (ICD-10 - I10) PLAN OF TREATMENT Medication Medication Name Sig Start Date Stop Date Olmesartan Medoxomil 40 MG 1 tablet Orally Once a day for 90 days Insurance Providers Payer Name Payer Address Payer Insured Patient Coverage Cover age Phone Name Relationship to Start Date End Date Insured AAR [address] [phone] Donna Main self 2019 [facility] [address] [place] [address] [phone] MEDICARE Attn Part B [id number] Donna Main self 2009 [employer] Claims [address] [facility] [address]
--- OUTSIDE RECORDS SUMMARY | 2020-04-15 10:57 | XMS REPORT ---
:1945 Author Organization [facility] Address [address] [place], [place]. [address] [place] [address] Care Team Providers Name Role Phone Alexander Unavailable [phone] PROBLEMS Type Condition ICD9-CM SFR44-IQ Onset Condition SNOMED Code Notes Code Code Dates Status Problem Non-seasonal J30.89 Active 91344885 allergic rhinitis, unspecified trigger Problem CLL (chronic C91.10 Active 44643816 lymphocytic leukemia) Problem Constipation, K59.00 Active 24540037 unspecified constipation type Problem Herpes zoster with B02.30 Active 877866614 ophthalmic complication, unspecified herpes zoster eye disease Problem Tinnitus, H93.19 Active 20792189 unspecified laterality Problem Primary M15.0 Active 525389747 osteoarthritis involving multiple joints Problem Primary insomnia F51.01 Active 7612226 Problem Mixed E78.2 Active 368171674 hyperlipidemia Problem Essential I10 Active 49457386 hypertension ALLERGIES Allergen (clinical Drug/Non Drug Reaction Allergy Type Onset Date S tatus drug ingredient) Allergy documented on EMR codeine Codeine sick in stomach Drug Allergy Active Sulfate(NDC Code:[address]-49 ) tramadol Tramadol HCl(ND Rash Drug Allergy Active Code:[address]-67 ) ENCOUNTERS from 1945 to 2020-04-03 Encounter Location Date Provider [facility] [address] [place] [address], [place] [address] IMMUNIZATIONS No Information SOCIAL HISTORY Tobacco Use: [...] Information RESULTS No Results REASON FOR VISIT Blood pressure log MEDICAL (GENERAL) HISTORY Type Description Date Surgical History knee surgery-meniscus 2010 Goals Section No Information Health Concerns No Information MEDICAL EQUIPMENT No Information MENTAL STATUS No Information FUNCTIONAL STATUS No Information ASSESSMENTS No Information PLAN OF TREATMENT No Information Insurance Providers Payer Name Payer Address Payer Insured Patient Coverage Cover age Phone Name Relationship to Start Date End Date Insured MEDICARE Attn Part B [id number] Donna Main mahsa 2009 [employer] Claims [address] [facility] [address] [facility] [address] [phone] Donna Main mahsa 2019 [facility] [address] [place] [phone]
--- OUTSIDE RECORDS SUMMARY | 2020-04-15 10:57 | XMS REPORT ---
:1945 Author Organization [facility] Address [address] [place], [place]. [address] [place] [address] Care Team Providers Name Role Phone Alexander Unavailable [phone] PROBLEMS Type Condition ICD9-CM [id number] Onset Condition W/U Status Risk SNOM ED Notes Code Code Dates Status Code Problem Non-seasonal J30.89 Active confirmed 7862870 4 allergic rhinitis, unspecified trigger Problem CLL (chronic C91.10 Active confirmed 9388881 6 lymphocytic leukemia) Problem Constipation, K59.00 Active confirmed 658930 08 unspecified constipation type Problem Herpes zoster B02.30 Active confirmed 283640 006 with ophthalmic complication, unspecified herpes zoster eye disease Problem Tinnitus, H93.19 Active confirmed 39510849 unspecified laterality Problem Primary M15.0 Active confirmed 469651594 osteoarthriti s involving multiple joints Problem Primary F51.01 Active confirmed 7823826 insomnia Problem Mixed E78.2 Active confirmed 526093110 hyperlipidemi a Problem Essential I10 Active confirmed 09906581 hypertension ALLERGIES Allergen (clinical Drug/Non Drug Reaction Allergy Type Onset Date S tatus drug ingredient) Allergy documented on EMR codeine Codeine sick in stomach Drug Allergy Active Sulfate(NDC Code:[address]-86 ) tramadol Tramadol HCl([facility] Rash Drug Allergy Active Code:[address]-57 ) ENCOUNTERS from 1945 to 2020-04-10 Encounter Location Date [facility] [address] [place] [address], [place] [address] IMMUNIZATIONS No Information SOCIAL HISTORY Tobacco Use: [...] RESULTS No Results REASON FOR VISIT BP, nausea, CP MEDICAL (GENERAL) HISTORY Type Description Date Surgical History knee surgery-meniscus 2010 Goals Section No Information Health Concerns No Information MEDICAL EQUIPMENT No Information MENTAL STATUS No Information FUNCTIONAL STATUS No Information ASSESSMENTS No Information PLAN OF TREATMENT Medication Medication Name Sig Start Date Stop Date Olmesartan Medoxomil 40 MG 1 tablet Orally Once a day for 90 days Insurance Providers Payer Name Payer Address Payer Insured Patient Coverage Cover age Phone Name Relationship to Start Date End Date Insured [facility] [address] [phone] Donna Main self 2019 [facility] [address] [place] [phone] MEDICARE Attn Part B [id number] Donna Main 2009 [employer] Claims [address] [facility] [address]
[2020-04-15 11:02] VITALS: O2SAT 98
--- NOTE | 2020-04-15 11:55 | EKG ---
Test Date: 2020-04-14 Test Time: 17:21:44 Credit Risk Analyst: JOSE MARIA MEASUREMENT RESULTS: Intervals: Rate: 81 TX: 158 QRSD: 80 QT: 360 QTc: 418 [place]: P: 44 TX: 158 QRS: 66 T: 58 INTERPRETIVE STATEMENTS: Normal sinus rhythm Nonspecific ST abnormality Abnormal ECG Compared to ECG 03/27/2020 20:26:10 ST (T wave) deviation now present Electronically Signed On 04-15-20 11:53:28 MOTION PICTURE PHOTOGRAPHER by Gordon Lott
--- NOTE | 2020-04-15 12:24 | P.DS ---
Admission Date: 04/14/20 Discharge Date: 04/15/20 Primary Care Provider: Lisbeth Munoz Disposition: ROUTINE DISCHARGE Discharge Condition: FAIR Reason for Admission: Syncope, Hypotension, Dizziness Consultations: Cardiology-Dr. Lott - Problems (1) Dizziness Status: Acute (2) Hypotension Status: Acute Qualifiers: Hypotension type: idiopathic hypotension Qualified Code(s): I95.0 - Idiopathic hypotension (3) Syncope Status: Acute Qualifiers: Syncope type: unspecified Qualified Code(s): R55 - Syncope and collapse Brief History of Present Illness: 74-year-old woman who has been experienced intermittent dizziness had a syncopal episode with hypotension at the ENT office. Patient was referred to the emergency department where her systolic blood pressure was noted to be 89. She was given IV normal saline boluses. Her blood pressure responded well and she became normotensive. CT head done in the ED did not show any acute changes. Note patient was in the ED previously for hypertension and had her hydrochlorothiazide increased to 25 mg daily. Patient had also seen Dr. Lott who was making arrangement for stress test. She was hospitalized for further management of syncope. Hospital Course: Patient placed under observation on the medical floor. Troponin was trended which came back negative. Her EKG demonstrated sinus rhythm with nonspecific ST-T changes. Patient was in sinus rhythm during the hospital stay. She was seen and evaluated by cardiology who recommended to discontinue her hydrochlorothiazide an outpatient stress test. Patient blood pressure has been stable. She is discharged per cardiology recommendation. She will call the cardiology office for arrangement for stress test. Hydrochlorothiazide has been discontinued per cardiology recommendation. Vital Signs/Physical Exam: Temp Pulse Resp BP Pulse Ox 97.7 F 71 16 135/51 L 100 04/15/20 08:00 04/15/20 08:00 04/15/20 08:00 04/15/20 08:00 04/15/20 08:00 General: Alert, In no apparent distress, Oriented x3 Neck: JVD not distended Cardiovascular: No edema, Regular rate/rhythm Gastrointestinal: Non-distended Musculoskeletal: No swelling Integumentary: No rashes, No erythema Neurological: Other (No focal motor deficits) Laboratory Data at Discharge: WBC 11.40 K/uL (4.3-10.9) H 04/15/20 04:09 Hgb 12.6 g/dL (12.0-15.0) 04/15/20 04:09 Hct 37.0 % (36.0-45.0) 04/15/20 04:09 Plt Count 264 K/uL (152-406) 04/15/20 04:09 PT 10.9 SECONDS (9.5-12.5) 04/14/20 18:40 INR 0.95 04/14/20 18:40 Sodium 131 mmol/L (136-145) L 04/15/20 04:09 Potassium 4.0 mmol/L (3.5-5.1) 04/15/20 04:09 BUN 14 mg/dL (7-18) 04/15/20 04:09 Creatinine 0.73 mg/dL (0.55-1.3) 04/15/20 04:09 Glucose 97 mg/dL (74-106) 04/15/20 04:09 Magnesium 2.4 mg/dL (1.8-2.4) 04/14/20 18:40 Total Bilirubin 1.0 mg/dL (0.2-1.0) 04/14/20 18:40 AST 16 U/L (15-37) 04/14/20 18:40 ALT 28 U/L (12-78) 04/14/20 18:40 Alkaline Phosphatase 99 U/L (45-117) 04/14/20 18:40 Troponin I 0.03 ng/mL (0.0-0.045) 04/15/20 04:09 Home Medications: Acetaminophen/Diphenhydramine [Acetaminophen-Diphenhyd 500-25] 1 each PO BEDTIME PRN 04/15/20 Acyclovir 400 mg PO DAILY 04/15/20 Amlodipine Besylate 5 mg PO DAILY 04/15/20 Aspirin 81 mg PO DAILY 04/15/20 Atorvastatin Calcium 40 mg PO BEDTIME 04/15/20 Brimonidine Tartrate [Alphagan P] 1 drop LEFT EYE Q12HR 04/15/20 Fiber [Fiber Diet] 2 - 4 tab PO DAILY PRN 04/15/20 Folic Acid/Multivit,Iron,[place] [One Daily Complete Tablet] 1 tab PO DAILY 04/15/20 Loratadine [Claritin*] 10 mg PO DAILY PRN 04/15/20 Olmesartan Medoxomil 40 mg PO DAILY 04/15/20 Diet: AHA Activity: Fall precautions Followup: Purnima Nation NP [Primary Care Provider] - Gordon Lott MD [ACTIVE - CAN ADMIT] - 1-2 Weeks
[2020-04-15 12:53] VITALS: BP 90/63; TEMP 98
[2020-04-15] MEDS: NA CHLORIDE 0.9% 1,000 ML IV SCH (13:07)
--- NOTE | 2020-04-19 10:40 | CON ---
Date of Consultation: 04/15/2020 Reason For Consultation: Syncope. History Of Present Illness: Ms. Main is a 74-year-old white woman, has a history of hypertension, d yslipidemia. Recently saw Dr. Ocampo in the office for atypical chest pain, was supposed to have a s tress test today, but came into the hospital with a syncopal episode. Denied any chest pain, nausea, vomiting, diaphoresis, PND, orthopnea, pedal edema, or palpitation. Denied any fever or chills. Past Medical History: As stated above. Allergies: SHE IS ALLERGIC TO CIPROFLOXACIN, CODEINE, AND TRAMADOL. Medications: Her medications at home include olmesartan, Norvasc hydrochlorothiazide, aspirin, Lipit or, and acyclovir. Review of Systems: Negative. Social History: Negative. Family History: Negative. Physical Examination: General: She was in no acute distress. Vital Signs: Stable. She was afebrile. Her first blood pressure in the emergency room was 89/52, i t is 120/73 now. She is in sinus rhythm. HEENT: Negative. Neck: Supple without any bruit, lymphadenopathy, JVD, or thyromegaly. Chest: Clear to auscultation and percussion. Cardiac: Revealed a regular rhythm and rate with an S4 gallops. No murmurs or rubs. Abdomen: Benign. Extremities: Revealed no clubbing, cyanosis, or edema. Diagnostic Data: [place] [address], sodium of 131. She had a chest x-ray that was negat guadalupe. CT of her head that was negative. CT of the spine shows cervical spondylosis. CT angiogram an d neck CT angiogram were negative. No carotid stenosis. Troponin was negative. EKG was unremarkabl e. Impression And Plan: Syncope secondary to orthostatic hypotension and dehydration. She needs to be hydrated. I think when she goes home she needs to hold her hydrochlorothiazide. Continue the olmesa rtan and Norvasc and we will see her in the office in the next week or two. She needs to have her st ress test rescheduled. Her other problems including dyslipidemia is well controlled. She can go lai e whenever it is okay with Dr. Shaw. RONDA/MODL Voice ID: [id number] Report ID: [id number]
== END 2020-04-15 14:12 | disposition home or self-care (01) ==
LOC: ER 14:51 → ERHOLD 22:18 → 2ND 23:21
PROVIDERS: ADMIT Internal Medicine; ATTEND Internal Medicine
DX: I95.0 Idiopathic hypotension (principal); R94.31 Abnormal electrocardiogram [ECG] [EKG]; Z20.822 Contact with and (suspected) exposure to COVID-19; E78.00 Pure hypercholesterolemia, unspecified; I10 Essential (primary) hypertension; R42 Dizziness and giddiness
CPT/HCPCS: 96365; 96361; 93005; 85025 ×2; 80048 ×2; 36415; 83735; 85610; 80076; 84484 ×3; 83880; 70450; 72125; 70496; 70498; 71045; 96375; 99285; U0003; Q9967; J2550; J3360; J7050; J7030; J2405 ×3; G0378 ×2; 81003; 81015

== ENCOUNTER 2020-06-19 13:54 | Emergency (ER) | payer OTHER, MEDICARE ==
--- OUTSIDE RECORDS SUMMARY | 2020-06-19 13:58 | XMS REPORT | Continuity of Care Document ---
:1945 Author Organization [facility] t Address [address] [place] [address] Care Team Providers Name Role Phone Radiology Attending Clinician Unavailable Doctor Unassigned, Name Attending Clinician Unavailable Problems This patient has no known problems. Allergies, Adverse Reactions, Alerts Allergy Allergy Status Severity Reaction(s) Onset Inactive Treating Comm ents Source Name Type Date Date Clinician Tramadol Adverse Active Rash [facility] HCl Reaction [facility] Codeine Adverse Active sick in [facility] Sulfate Reaction stomach [facility] Medications Ordered Filled Start Stop Current Ordering Indication Dosage Frequency Signature Comments Components Source Medication Medication Date Date Medication? Clinician (SIG) Name Name Olmesartan Olmesartan Yes Marvin 1/[address] [facility] Medoxomil Medoxomil Munoz [facility] Amlodipine Amlodipine Yes Marvin 1/[address] [facility] Besylate Besylate Munoz [facility] Acyclovir Acyclovir Yes Marvin 1-[address] [facility] Munoz tablets [facility] Atorvastati Atorvastati Yes Marvin [address] [facility] n Calcium n Calcium Munoz [facility] Daily Daily Yes Marvin not [facility] Vitamins Vitamins [facility]oz defined [facility] Loratadine Loratadine Yes Marvin [address] [facility] Munoz [facility] Fiber Fiber Yes Marvin not [facility] Choice Choice Munoz defined [facility] Ibuprofen Ibuprofen Yes Marvin not [facility] Munoz defined [facility] -81 Aspir-81 Yes Marvin 1 tablet C HI [...] Date/Time Type Type Clinicians Facility Department ID 2020-06-17 2020-06-17 [facility] [id number] 2020-06-16 2020-06-16 [facility] [id number] [facility] 2020-06-16 2020-06-16 [facility] [id number] [facility] 2020-05-12 2020-05-12 [facility] [id number] [facility] 2020-05-11 2020-05-11 [facility] [id number] [facility] 2020-05-08 2020-05-08 [facility] [id number] [facility] 2020-04-30 2020-04-30 [facility] [id number] [facility] 2020-04-15 2020-04-15 [facility] [id number] [facility] 2020-04-14 2020-04-14 [facility] [id number] [facility] 2020-04-10 2020-04-10 [facility] [id number] [facility] 2020-04-03 2020-04-03 [facility] [id number] [facility] 2020-03-27 2020-03-27 [facility] [id number] [facility] 2020-03-25 2020-03-25 [facility] [id number] [facility] 2020-03-24 2020-03-24 [facility] [id number] [facility] 2020-03-18 2020-03-18 Outpatient [facility] [id number] [facility] 2020-02-04 2020-02-04 [facility] [id number] [facility] 2020-01-24 2020-01-24 [facility] [id number] [facility] 2020-01-14 2020-01-14 Hospital Radiology [facility] [id number] 11:45:29 23:59:00 Encounter [place] [id number] [place] [id number] 2020-01-14 2020-01-14 Orders Doctor ROSS [id number] 00:00:00 00:00:00 Only Unassigned, MARIA [id number] [place] [id number] 2019-11-13 2019-11-13 [facility] [id number] [facility] 15:40:00 15:40:00 [facility] 2019-09-20 2019-09-20 [facility] [id number] 07:38:00 07:38:00 [facility] [employer] 2019-08-22 2019-08-22 [facility] [id number] 13:35:00 13:35:00 t [employer] [facility] 2019-08-19 2019-08-19 [facility] [id number] 13:23:00 13:23:00 t [employer] [facility] 2019-08-12 2019-08-12 [facility] [id number] [facility] 15:01:00 15:01:00 t [employer] [facility] 2019-08-08 2019-08-08 [facility] [id number] [facility] 13:00:00 13:00:00 t [employer] [facility] 2019-08-08 2019-08-08 [facility] [id number] 13:00:00 13:00:00 t [employer] [facility] 2019-06-04 2019-06-04 [facility] [id number] [facility] 10:49:00 10:49:00 [facility] [employer] [facility] Results This patient has no known results.
--- NOTE | 2020-06-19 15:51 | RAD REPORT ---
EXAM DESCRIPTION: US - Abdomen Exam Limited - 06/19/2020 3:36 pm CLINICAL HISTORY: ABD PAIN COMPARISON: Abdomen Pelvis W Contrast dated 05/18/2020 FINDINGS: Multiple small subcentimeter sized mobile gallstones are seen. There is no wall thickening or pericholecystic fluid. No measurable quantity of sludge. No common duct stone or biliary tree dilatation identified. IMPRESSION: Multiple small sub centimeter mobile gallstones. No other gallbladder or biliary tree finding.
[2020-06-19 16:24] LABS: Absolute Lymphocytes (CBC) 2.5 K/uL (0.7-4.9); Basophils % 0.4 % (0-1.3); Hematocrit 36.3 % (36.0-45.0); Lymphocytes % 20.6 % (15.3-44.8); MPV 7.4 fL (7.6-11.3); RBC Red Blood Cell Count 4.09 M/uL (3.86-4.86)
[2020-06-19 16:39] LABS: Albumin 4.3 g/dL (3.4-5.0); Bilirubin Direct 0.3 mg/dL (0-0.2); Bilirubin Total 1.2 mg/dL (0.2-1.0); Potassium 3.7 mmol/L (3.5-5.1); Protein, Total 7.5 g/dL (6.4-8.2)
--- NOTE | 2020-06-19 17:30 | RAD REPORT ---
EXAM DESCRIPTION: CT - Abdomen Pelvis W Contrast - 06/19/2020 4:55 pm CLINICAL HISTORY: abdominal pain COMPARISON: Abdomen Pelvis W Contrast dated 05/18/2020 TECHNIQUE: Biphasic, helical CT imaging of the abdomen and pelvis was performed following 100 ml non -ionic IV contrast. No oral contrast administered. All CT scans are performed using dose optimization technique as appropriate and may include automated exposure control or mA/KV adjustment according to patient size. FINDINGS: No suspicious findings in the lung bases. The liver, spleen, and pancreas show no suspicious findings. Several small sub centimeter gallstones layer in the dependent portion of the gallbladder. This matches comparison. No wall thickening, peric holecystic fluid or biliary tree dilatation. Symmetric renal function is seen with no hydronephrosis or suspicious renal mass. No pyelonephritis o r acute parenchymal process. No bladder wall thickening or enhancement. No bladder calculi. No adrena l abnormalities. Fibroid in the fundus of the uterus is present similar to the comparison study. Uter ine assessment is limited. Patient has a 2.7 centimeter left ovarian or paraovarian simple cyst. This also matches prior study. No dilated bowel loops or bowel wall thickening. Moderate stool volume is present in the colon. Appen raeann is not clearly defined. No direct or indirect evidence for appendicitis. No free air, free fluid or inflammatory stranding. No hernia, mass or bulky lymphadenopathy. Disc and bone degenerative changes are present. IMPRESSION: Contrast enhanced CT abdomen and pelvis showing no acute or emergent finding. Prominent stool volume throughout the colon with no acute GI process seen. No pyelonephritis or acute finding. No acute ARBORER finding. Simple left ovarian cyst similar to comp noe. Cholelithiasis without acute gallbladder or biliary tree finding.
[2020-06-19] MEDS ORDERED: NA CHLORIDE 0.9% 1,000 ML ONE (18:24)
--- NOTE | 2020-06-19 18:31 | ER ---
Nurse's Notes [facility] Name: Abby Main Age: 75 yrs Sex: Female : 1945 Arrival Date: 06/19/2020 Time: 14:11 Bed 20 Private MD: Marvin Munoz Diagnosis: Cholelithiasis;Hypo-osmolality and hyponatremia Presentation: 06/19 14:23 Chief complaint: Patient states: had a stomach ache that she's had for a long time, had iw endoscopy that showed erosion in stomach lining but no ulcers, found a stone in her gallbladder, is on dexilant , has nausea and abd pain, he called Dr. Meek and was told she needs an US , also has a UTI that she is prescribed Cipro. Coronavirus screen: At this time, the client does not indicate any symptoms associated with coronavirus-19. Ebola Screen: Patient negative for fever greater than or equal to 101.5 degrees Fahrenheit, and additional compatible Ebola Virus Disease symptoms Patient denies exposure to infectious person. Patient denies travel to an Ebola-affected area in the 21 days before illness onset. No symptoms or risks identified at this time. Initial Sepsis Screen: Does the patient meet any 2 criteria? No. Patient's initial sepsis screen is negative. Does the patient have a suspected source of infection? No. Patient's initial sepsis screen is negative. Risk Assessment: Do you want to hurt yourself or someone else? Patient reports no desire to harm self or others. Onset of symptoms was June 18, 2020. 14:23 Method Of Arrival: Wheelchair iw 14:23 Acuity: SUZETTE 3 iw Historical: - Allergies: 14:31 Codeine; iw 14:31 Tramadol HCl; iw 14:31 Famotidine; iw 14:31 Zoloft; iw - Home Meds: 14:31 acyclovir 400 mg Oral tab 1 tab every 8 hours [Active]; atorvastatin 40 mg oral tab 1 iw tab once daily [Active]; olmesartan oral 40 mg oral once daily [Active]; amlodipine 5 mg tab 1 tab once daily [Active]; hydrochlorothiazide 25 mg Oral tab 1 tab once daily [Active]; Alphagan P 0.1 % ophthalmic drop twice a day [Active]; aspirin 81 mg Oral TbEC 1 tab once daily [Active]; - PMHx: 14:31 High Cholesterol; Hypertension; iw - PSHx: 14:31 left knee; iw - Immunization history:: Adult Immunizations up to date, Client reports receiving the 2nd dose of the Covid vaccine. - Social history:: Smoking status: Patient denies any tobacco usage or history of. Screenin:53 Abuse screen: Denies threats or abuse. Nutritional screening: No deficits noted. jd3 Tuberculosis screening: No symptoms or risk factors identified. Fall Risk Ambulatory Aid- None/Bed Rest/Nurse Assist (0 pts). Gait- Normal/Bed Rest/Wheelchair (0 pts) Mental Status- Oriented to own ability (0 pts). Total Conte Fall Scale indicates No Risk (0-24 pts). Assessment: 15:51 General: Appears in no apparent distress. uncomfortable, Behavior is calm, cooperative, jd3 appropriate for age. Pain: Complains of pain in abdomen Quality of pain is described as aching. Neuro: Level of Consciousness is awake, alert, obeys commands, Oriented to person, place, time, situation. Cardiovascular: Denies chest pain, Capillary refill < 3 seconds Patient's skin is warm and dry. Respiratory: Airway is patent Respiratory effort is even, unlabored, Respiratory pattern is regular, symmetrical, Denies cough, shortness of breath. GI: Abdomen is round non-distended, Abd is soft X 4 quads Abdomen is tender to palpation in right upper quadrant Reports upper abdominal pain, nausea. : No signs and/or symptoms were reported regarding the genitourinary system. EENT: No signs and/or symptoms were reported regarding the EENT system. Derm: Skin is intact, Skin is dry, Skin is normal, Skin temperature is warm. Musculoskeletal: Circulation, motion, and sensation intact. Range of motion: intact in all extremities. 17:12 Reassessment: Patient appears in no apparent distress at this time. No changes from jd3 previously documented assessment. Patient and/or family updated on plan of care and expected duration. Pain level reassessed. Patient is alert, oriented x 3, equal unlabored respirations, skin warm/dry/pink. 18:19 Reassessment: Patient appears in no apparent distress at this time. No changes from jd3 previously documented assessment. Patient and/or family updated on plan of care and expected duration. Pain level reassessed. Patient is alert, oriented x 3, equal unlabored respirations, skin warm/dry/pink. fluids infusing to right AC. pt resting in bed with family at bedside. call chavis in reach. 18:57 Reassessment: Patient appears in no apparent distress at this time. Patient and/or jd3 family updated on plan of care and expected duration. Pain level reassessed. Patient is alert, oriented x 3, equal unlabored respirations, skin warm/dry/pink. awaiting fluid bolus to infuse prior to discharge. 19:05 Reassessment: Patient and/or family updated on plan of care and expected duration. Pain ea level reassessed. Patient is alert, oriented x 3, equal unlabored respirations, skin warm/dry/pink. Discharge instruction given to patient verbalized the understanding of instruction. Pt awaiting on IV fluids to complete. 19:18 Reassessment: Patient and/or family updated on plan of care and expected duration. Pain ea level reassessed. Patient is alert, oriented x 3, equal unlabored respirations, skin warm/dry/pink. Pt left ED ambulatory tolerating well. Vital Signs: 14:23 BP 105 / 71; Pulse 82; Resp 16; Temp 98.7; Pulse Ox 100% on R/A; Weight 73.48 kg; iw Height 5 ft. 4 in. (162.56 cm); Pain 10/10; 17:12 BP 143 / 85; Pulse 54; Resp 17 S; Pulse Ox 100% on R/A; jd3 18:57 BP 138 / 76; Pulse 79; Resp 16 S; Pulse Ox 100% on R/A; jd3 14:23 Body Mass Index 27.81 (73.48 kg, 162.56 cm) iw ED Course: 14:11 Patient arrived in ED. am2 14:11 Marvin Munoz DO is Private Physician. am2 14:26 Triage completed. iw 14:32 Arm band placed on. iw 14:45 Sp Veronica PA is PHCP. jmm 14:45 Gino Patel MD is Attending Physician. jmm 15:12 Horacio Meadows RN is Primary Nurse. jd3 15:36 US Abdomen Limited In Process Unspecified. EDMS 15:52 Missed attempt(s): 22 gauge in right wrist. Bleeding controlled, band aid applied, jd3 catheter tip intact. 15:53 Patient has correct armband on for positive identification. Bed in low position. Call jd3 light in reach. Side rails up X 1. Adult w/ patient. Pulse ox on. NIBP on. 16:16 Initial lab(s) drawn, by me, sent to lab. Inserted saline lock: 22 gauge in right iw antecubital area, using aseptic technique. Blood collected. 16:55 CT Abd/Pelvis - IV Contrast Only In Process Unspecified. EDMS 18:29 Demetris Augustine MD is Referral Physician. ruth 19:05 No provider procedures requiring assistance completed. ea 19:17 IV discontinued, intact, bleeding controlled, No redness/swelling at site. Pressure ea dressing applied. Administered Medications: 18:10 Drug: NS 0.9% 1000 ml Route: IV; Rate: 1 bolus; Site: right antecubital; jd3 19:17 Follow up: Response: No adverse reaction; IV Status: Completed infusion; IV Intake: ea 1000ml Intake: 19:17 IV: 1000ml; Total: 1000ml. ea Outcome: 18:30 Discharge ordered by . ruth 19:05 Discharge instructions given to patient, Instructed on discharge instructions, follow ea up and referral plans. medication usage, Demonstrated understanding of instructions, follow-up care, medications, Prescriptions given X 2. 19:17 Discharged to home ambulatory, with family. ea 19:17 Condition: stable 19:18 Patient left the ED. ea Signatures: Dispatcher [employer] EDMS Sp Veronica PA PA jmm Williams, Irene, Keena Gu RN, Elena, RN RN ea Davies, Jonathon, RN RN jd3
--- NOTE | 2020-06-19 18:31 | EDPHYS ---
Physician Documentation [facility] Name: Abby Main Age: 75 yrs Sex: Female : 1945 Arrival Date: 06/19/2020 Time: 14:11 Bed 20 Private MD: Bebe Munozh ED Physician Gino Patel HPI: 06/19 14:51 This 75 yrs old Female presents to ER via Wheelchair with complaints of m Abdominal Pain, Nausea. 14:51 The patient presents with abdominal pain. Onset: The symptoms/episode began/occurred jmm gradually, 1 month(s) ago. The symptoms do not radiate. Associated signs and symptoms: Pertinent positives: nausea, Pertinent negatives: fever. The symptoms are described as achy. Modifying factors: The symptoms are alleviated by nothing, the symptoms are aggravated by nothing. The patient has not experienced similar symptoms in the past. Historical: - Allergies: 14:31 Codeine; iw 14:31 Tramadol HCl; iw 14:31 Famotidine; iw 14:31 Zoloft; iw - Home Meds: 14:31 acyclovir 400 mg Oral tab 1 tab every 8 hours [Active]; atorvastatin 40 mg oral tab 1 iw tab once daily [Active]; olmesartan oral 40 mg oral once daily [Active]; amlodipine 5 mg tab 1 tab once daily [Active]; hydrochlorothiazide 25 mg Oral tab 1 tab once daily [Active]; Alphagan P 0.1 % ophthalmic drop twice a day [Active]; aspirin 81 mg Oral TbEC 1 tab once daily [Active]; - PMHx: 14:31 High Cholesterol; Hypertension; iw - PSHx: 14:31 left knee; iw - Immunization history:: Adult Immunizations up to date, Client reports receiving the 2nd dose of the Covid vaccine. - Social history:: Smoking status: Patient denies any tobacco usage or history of. ROS: 14:51 Constitutional: Negative for fever, chills, and weight loss, Cardiovascular: Negative jm for chest pain, palpitations, and edema, Respiratory: Negative for shortness of breath, cough, wheezing, and pleuritic chest pain. 14:51 Abdomen/GI: Positive for abdominal pain, nausea. 14:51 All other systems are negative. Exam: 14:51 Constitutional: This is a well developed, well nourished patient who is awake, alert, jmm and in no acute distress. Head/Face: atraumatic. Eyes: EOMI, no conjunctival erythema appreciated ENT: Moist Mucus Membranes Neck: Trachea midline, Supple Chest/axilla: Normal chest wall appearance and motion. Cardiovascular: Regular rate and rhythm. No edema appreciated Respiratory: Normal respirations, no respiratory distress appreciated Abdomen/GI: Non distended, soft Back: Normal ROM Skin: General appearance color normal MS/ Extremity: Moves all extremities, no obvious deformities appreciated, no edema noted to the lower extremities Neuro: Awake and alert, normal gait Psych: Behavior is normal, Mood is normal, Patient is cooperative and pleasant Vital Signs: 14:23 BP 105 / 71; Pulse 82; Resp 16; Temp 98.7; Pulse Ox 100% on R/A; Weight 73.48 kg; iw Height 5 ft. 4 in. (162.56 cm); Pain 10/10; 17:12 BP 143 / 85; Pulse 54; Resp 17 S; Pulse Ox 100% on R/A; jd3 18:57 BP 138 / 76; Pulse 79; Resp 16 S; Pulse Ox 100% on R/A; jd3 14:23 Body Mass Index 27.81 (73.48 kg, 162.56 cm) iw MDM: 14:51 Patient medically screened. [facility] 18:27 Data reviewed: vital signs, nurses notes. Counseling: I had a detailed discussion with [facility] the patient and/or guardian regarding: the historical points, exam findings, and any diagnostic results supporting the discharge/admit diagnosis, lab results, radiology results, the need for outpatient follow up, to return to the emergency department if symptoms worsen or persist or if there are any questions or concerns that arise at home. ED course: Patient is alert and non toxic in appearance in the ED. No signs of resp distrress, sepsis. I discused the patient with Dr. Meek whom recommended follow up. I discussed the patient with Dr. Augustine whom will see the patient in clinic on Monday. Patient is otherwise given strict return precautions. Patient understood and agrees with the plan of care. . 06/19 15:03 Order name: Basic Metabolic Panel; Complete Time: 17:09 [facility] 06/19 15:03 Order name: CBC with Diff; Complete Time: 17: [facility] 06/19 15:03 Order name: Hepatic Function; Complete Time: 17:09 [facility] 06/19 15:03 Order name: Lipase; Complete Time: 17:09 [facility] 06/19 15:03 Order name: CT Abd/Pelvis - IV Contrast Only; Complete Time: 17:31 [facility] 06/19 15:03 Order name: US Abdomen Limited; Complete Time: 15:58 [facility] 06/19 15:03 Order name: IV Saline Lock; Complete Time: 16:16 [facility] 06/19 15:03 Order name: Labs collected and sent; Complete Time: 16:16 [facility] 06/19 15:03 Order name: Urine Dipstick-Ancillary (obtain specimen); Complete Time: 17:47 [facility] Administered Medications: 18:10 Drug: NS 0.9% 1000 ml Route: IV; Rate: 1 bolus; Site: right antecubital; bcd3 19:17 Follow up: Response: No adverse reaction; IV Status: Completed infusion; IV Intake: ea 1000ml Disposition: 06/19/20 18:30 Discharged to Home. Impression: Cholelithiasis, Hypo-osmolality and hyponatremia. - Condition is Stable. - Discharge Instructions: Cholelithiasis. - Prescriptions for Flagyl 500 mg Oral Tablet - take 1 tablet by ORAL route every 8 hours for 10 days; 21 tablet. Cipro 500 mg Oral Tablet - take 1 tablet by ORAL route every 12 hours for 7 days; 14 tablet. - Medication Reconciliation Form, Thank You Letter, Antibiotic Education, Prescription Opioid Use form. - Follow up: Demetris Augustine MD; When: 06/22/2020. Addendum: 06/24/2020 10:07 Co-signature as Attending Physician, Gino Patel MD I agree with the assessment and t w4 plan of care. Signatures: Dispatcher [employer] EDMS Sp Veronica PA PA jmm Williams, Irene, RN RN iw Antunez, Elena, RN RN ea Davies, Jonathon, RN RN jd3 Wadley, Terrence, MD MD tw4 Corrections: (The following items were deleted from the chart) 06/19 19:18 18:30 06/19/2020 18:30 Discharged to Home. Impression: Cholelithiasis; Hypo-osmolality ea and hyponatremia. Condition is Stable. Forms are Medication Reconciliation Form, Thank You Letter, Antibiotic Education, Prescription Opioid Use. Follow up: Demetris Augustine; When: 06/22/2020. [facility]
[2020-06-19 19:24] VITALS: TEMP 98.7; O2SAT 100
[2020-06-19 19:29] VITALS: BP 138/76
[2020-06-24 16:25] LABS: Urine Blood TRACE (Negative); Urine Glucose NEGATIVE (Negative); Urine Protein NEGATIVE (Negative)
== END 2020-06-19 19:18 | disposition home or self-care (01) ==
LOC: ER 13:54
DX: K80.20 Calculus of gallbladder without cholecystitis without obstruction (principal); E87.1 Hypo-osmolality and hyponatremia; I10 Essential (primary) hypertension; E78.00 Pure hypercholesterolemia, unspecified; Z79.82 Long term (current) use of aspirin; Z88.5 Allergy status to narcotic agent; Z88.8 Allergy status to other drugs, medicaments and biological substances
CPT/HCPCS: 85025; 80048; 36415; 80076; 83690; 74177; 76705; 96360; 99284; Q9967; J7030; 81003

== ENCOUNTER 2020-06-23 10:28 | Day surgery (SDC) | payer OTHER, MEDICARE ==
[2020-06-23] MEDS ORDERED: Ringers Lactate 0 ML IV ONE (11:07)
[2020-06-23] MEDS ORDERED: Ringers Lactate 1,000 ML IV ONE ×2 (11:13→14:55)
[2020-06-23] MEDS ORDERED: DIAZEPAM 5 MG TABLET ONE (11:15)
[2020-06-23] MEDS ORDERED: NA CIT/CITRIC AC 30 ML ORAL UDC ONE (11:16)
[2020-06-23] MEDS ORDERED: CEFAZOLIN/SWI 1gm 1 GM/10 ML SYR ONE (11:48)
[2020-06-23] MEDS ORDERED: propofoL 200 MG/20 ML VIAL IV ONE (13:44)
[2020-06-23] MEDS ORDERED: MIDAZOLAM HCL 2 MG/2 ML INJ ONE (13:44)
[2020-06-23] MEDS ORDERED: LIDOCAINE 2% MPF 5 ML VIAL ONE ×2 (13:45→15:45)
[2020-06-23] MEDS ORDERED: ONDANSETRON 4 MG/2 ML VIAL ONE (13:45)
[2020-06-23] MEDS ORDERED: dexAMETHasone 10 MG/ML VIAL ONE (13:45)
[2020-06-23] MEDS ORDERED: KETOROLAC 30 MG/ML INJ ONE (13:45)
[2020-06-23] MEDS ORDERED: ROCURONIUM 50 MG/5 ML VIAL IV ONE (13:45)
[2020-06-23] MEDS ORDERED: FENTANYL CITR 100 MCG/2 ML ONE (13:48)
--- NOTE | 2020-06-23 14:50 | P.BOP ---
Preoperative diagnosis: acute cholecystitis, symptomatic cholelithiasis Postoperative diagnosis: same Primary procedure: Laparoscopic cholecystectomy Director Of Database Marketing: ALIYAH CLAROS (EARLY CHILDHOOD TEACHER) Estimated blood loss: <10cc Specimen: gb Findings: as above Anesthesia: General Complications: None Transferred to: Recovery Room Condition: Good
[2020-06-23] MEDS ORDERED: GLYCOPYRROLATE 0.2 MG/ML SYR ONE (14:51)
[2020-06-23] MEDS ORDERED: EPHEDRINE SULF 50 MG/ML VIAL ONE (14:53)
[2020-06-23] MEDS ORDERED: NEOSTIGMINE 1 MG/ML -5 ML ONE (15:15)
[2020-06-23] MEDS ORDERED: LIDOCAINE 1% MPF 5 ML VIAL ONE (15:44)
[2020-06-23 15:45] VITALS: O2SAT 100
[2020-06-23] MEDS ORDERED: TRAMADOL 37.5mg/APAP 325mg PER TAB ONE (17:34)
[2020-06-23 18:00] VITALS: BP 122/51; TEMP 97.3
--- NOTE | 2020-06-24 00:58 | OP ---
Date of Procedure: 06/23/2020 Surgeon: Demetris Augustine MD Water Restoration Technician: Genet Graves. Preoperative Diagnosis: Acute cholecystitis, symptomatic cholelithiasis. Postoperative Diagnosis: Acute cholecystitis, symptomatic cholelithiasis. Procedure: Laparoscopic cholecystectomy. Ebl: Less than 10 cc. Specimen: Gallbladder. Findings: Acute cholecystitis. There is some tiny hernia on the belly button. We used that as an e ntry site and closed that in a way out. Anesthesia: General plus local. Indications: This is the case of a female, who comes to us with intractable right upper quadrant abd ominal pain. She was in the ER a few days ago, sent home, and came to my office. The pain is worse. We saw her few hours ago and we booked her in for surgery for laparoscopic possible open cholecyste ctomy with benefits, alternatives, and risks include, but not limited to infection, bleeding, damage to adjacent structures, anesthesia complication, cholelithiasis, bile leak, pancreatitis, CO and even . She also understands that this may not relieve symptoms. She might need more than one surgi lester intervention. She understood, signed a consent. Procedure In Detail: The patient was brought to the operating room, placed in supine position. Anes thesia was done without complication. Abdominal area was prepped and draped in sterile fashion. Mar dee 0.5% was injected for local anesthetic followed by sharp incision of the skin in the infraumbil ical region. Incision was carried down to fascia. We noticed a small hernia sac. It was opened. F ascial edges were clean. No incarceration. So, we used that entry site for Ladonna trocar. Vicryl # 1 was placed inside the fascia. Ladonna trocar was carefully introduced. No bleeding was obtained. We placed 3 more trocars, 5 mm each one of them in the right upper quadrant under direct visualizatio n. This allowed me to visualize the area of the gallbladder. A grasper was placed in the fundus of the gallbladder, another grasper in the infundibulum retracting the gallbladder in the inferolateral fashion exposing the triangle of Calot obtaining critical view. Cystic duct and cystic artery were c learly isolated free circumferentially, and a connection between those and the gallbladder was clearl y identified. I proceeded to ligate those by using at least 3 clips proximal, 1 clip distal, ligatio n in middle. Same was done with the cystic artery. A small little branch of the cystic artery was a lso ligated using same technique. Hepatic arteries and common bile duct were protected at all times. Gallbladder was removed from liver using Bovie cauterizer and removed from abdominal cavity using E ndoCatch through the umbilical incision. Area was inspected once again. No bile leak. No bleeding. Clips were intact. At that moment, I proceeded to remove the trocars under direct vision, deflated pneumoperitoneum, closed the fascia with 1 Vicryl. Irrigated subcutaneous tissue, closed that with 3-0 chromic and skin in a subcuticular fashion with 3-0 chromic and Steri-Strips on top. Sponge coun t and instrument counts were correct. The patient tolerated the procedure well. The patient was sen t to recovery in stable condition. Discharge Summary: Diagnosis: Acute cholecystitis, symptomatic cholelithiasis. Disposition: Home. Activity: As tolerated. No heavy lifting. Plan: Follow up in my office in 1 week. Call for appointment on [phone]. Keep area dry and clean until she see us again in office. Medications: See orders. HM/MODL Voice ID: [id number] Report ID: [id number]
== END 2020-06-23 18:00 | disposition home or self-care (01) ==
LOC: OR 10:28
PROVIDERS: ATTEND Surgery
PROC: 0FT44ZZ Resection of Gallbladder, Percutaneous Endoscopic Approach (ICD-10-PCS; principal; 2020-06-23 13:45)
DX: K80.10 Calculus of gallbladder with chronic cholecystitis without obstruction (principal); Z20.822 Contact with and (suspected) exposure to COVID-19
CPT/HCPCS: 36415; 82150; 88304; J0690; J1100; J2250; J2405; J2704; J2710; J3010; J7120; U0003

== ENCOUNTER 2021-11-12 09:51 | Day surgery (SDC) | payer OTHER, MEDICARE ==
[2021-11-09 11:07] LABS: Absolute Lymphocytes (CBC) 1.9 K/uL (0.7-4.9); Hematocrit 36.8 % (36.0-45.0); Lymphocytes % 25.1 % (15.3-44.8); MCV 94.3 fL (80-100); MPV 6.7 fL (7.6-11.3)
[2021-11-09 11:31] LABS: Potassium 4.2 mmol/L (3.5-5.1)
[2021-11-09 11:59] LABS: SARS-CoV-2 Antigen Rapid Res Negative (Negative)
--- NOTE | 2021-11-09 14:29 | EKG ---
Test Date: 2021-11-09 Test Time: 10:31:06 Sergeant Missile Crewman: ANJALI MEASUREMENT RESULTS: Intervals: Rate: 66 NJ: 150 QRSD: 80 QT: 366 QTc: 383 [place]: P: 38 NJ: 150 QRS: 15 T: 43 INTERPRETIVE STATEMENTS: Normal sinus rhythm Normal ECG Compared to ECG 04/14/2020 17:21:44 ST (T wave) deviation no longer present Electronically Signed On 11-09-21 14:28:48 CDT by Octavio Ocampo
[2021-11-12] MEDS ORDERED: CEFAZOLIN SODIUM 1 GM/VIAL ONE (10:20)
[2021-11-12] MEDS ORDERED: Ringers Lactate 1,000 ML IV ONE (10:20)
[2021-11-12] MEDS ORDERED: ACETAMINOPHEN 500 MG TAB ONE (11:34)
[2021-11-12] MEDS ORDERED: CELECOXIB 100 MG CAPSULE ONE (11:34)
[2021-11-12] MEDS ORDERED: propofoL 200 MG/20 ML VIAL IV ONE ×2 (12:34→12:41)
[2021-11-12] MEDS ORDERED: MIDAZOLAM HCL 2 MG/2 ML INJ ONE (12:35)
[2021-11-12] MEDS ORDERED: FENTANYL CITR 100 MCG/2 ML ONE ×2 (12:35→12:40)
[2021-11-12] MEDS ORDERED: LIDOCAINE 2% MPF 5 ML VIAL ONE ×2 (12:37→12:41)
[2021-11-12] MEDS ORDERED: ONDANSETRON 4 MG/2 ML VIAL ONE ×2 (12:40→12:41)
[2021-11-12] MEDS ORDERED: dexAMETHasone 4 MG/ML VIAL ONE (12:41)
[2021-11-12] MEDS ORDERED: KETOROLAC 30 MG/ML INJ ONE (12:41)
[2021-11-12] MEDS ORDERED: MEPERIDINE HCL 25 MG/ML SYR ONE (12:51)
[2021-11-12] MEDS ORDERED: EPHEDRINE SULF 50 MG/ML VIAL ONE (13:15)
[2021-11-12 15:20] VITALS: BP 123/67; TEMP 98.2; O2SAT 98
--- NOTE | 2021-11-13 00:10 | OP ---
Date of Procedure: 11/12/2021 Surgeon: Brown Ellsworth MD Preoperative Diagnosis: Left knee pain with mechanical symptoms, possible meniscal tear or tears. Postoperative Diagnoses: 1.Small radial tear of the medial meniscus. 2.Fraying of the anterior and slight midbody of the lateral meniscus. 3.Grade 3 chondromalacia of patellofemoral joint. Procedures: 1.Medial meniscal repair. 2.Lateral meniscal repair. 3.Some removal of fat pad, which may be impinging. Estimated Blood Loss: Less than 10 cc. Complications: There were no complications. Specimen: No pathology specimens sent. Indications For Operation: Ms. Main is a 76-year-old female who has been having problems with her l eft knee for some time. She has been to physical therapy. She has had injections. She does have an MRI, which was not conclusive for any displaceable meniscal tear. All of our attempts to treat this nonoperatively have not been sufficient to alleviate her pain and she has had arthroscopy in the pas t and she feels that she needs to have this done again. After we exhausted all of other possibilitie s, we will proceed with arthroscopic management of her knee. She states she understands things as pr esented and understands risks, benefits, and alternatives. Description Of Procedure: The patient was taken to the operating room and placed in supine position. General anesthesia was obtained by the staff. Following this, well-padded tourniquet was placed on superior left thigh, but was not used throughout the case. Following this, left lower extremity was then prepped and draped in sterile fashion for procedure. This was followed by placement of inferol ateral arthroscopy portal, which was done atraumatically with 1 pass. The knee was then used to sequ entially examine the knee including the suprapatellar pouch, the medial and lateral gutters, medial a nd lateral compartment as well as the notch and patellofemoral joint. Pertinent findings included wh at maybe by previous arthroscopic treatment of the medial meniscus, but it does appear to have a very small radial aspect abnormality at the junction of the middle and posterior thirds. Also inspection of the lateral meniscus demonstrates perfectly normal morphology until we reached the anterior third , which does appear to have some fraying. Also seen are chondral changes of the patellofemoral joint with some chondral tissue remaining, but I do believe it is consistent with a grade 3 chondromalacia . Following this, the inferomedial arthroscopy portal was then made using a needle for localization. This allowed for placement of a probe. The probe was used to inspect the medial meniscus and it do es have a very small area of decreased contour. This was then debrided using a shaver until it was w ell contoured and looked stable. Attention was then turned to the lateral compartment where the prob e was used to probe throughout and the shaver was used to debride back this frayed area of the anteri or to midportion of the meniscus until it was firm, looked stable, and well contoured. Attention was then turned to the patellofemoral joint and a probe was used. There was found to be no true unstabl e chondral flaps. The decision was made not to proceed with chondroplasty. Following this, because the patient had significant symptoms related mostly to the lateral side, some effort was made to debr randall back any fat pad, which may be possibly impinging or appeared to be sliding up into the patellofe moral joint. After this was done, the knee was again sequentially examined in all the above areas wi thout any pathology seen, which is amenable to arthroscopic intervention. The arthroscopy portals we re then stapled inferiorly and the superomedial arthroscopy portal was used for placement of Marcaine . This was then stable. The patient was placed in a well-padded sterile dressing and taken to [facility]. /HOMA Voice ID: [id number] Report ID: [id number]
== END 2021-11-12 15:15 | disposition home or self-care (01) ==
LOC: OR 09:51
PROVIDERS: ATTEND Orthopaedic Surgery
PROC: 0SBD4ZZ Excision of Left Knee Joint, Percutaneous Endoscopic Approach (ICD-10-PCS; 2021-11-12)
PROC: 0SBD4ZZ Excision of Left Knee Joint, Percutaneous Endoscopic Approach (ICD-10-PCS; principal; 2021-11-12 11:00)
DX: S83.242A Other tear of medial meniscus, current injury, left knee, initial encounter (principal); M22.42 Chondromalacia patellae, left knee; Z20.822 Contact with and (suspected) exposure to COVID-19
CPT/HCPCS: 93005; 85025; 80048; 36415; 87811; 29880; J2704; J1100; J2001; J3010; J2175; J7120; J2405; J0690; J2250

== ENCOUNTER 2021-12-29 07:13 | Emergency (ER) | payer OTHER, MEDICARE ==
--- OUTSIDE RECORDS SUMMARY | 2021-12-29 07:24 | XMS REPORT | Continuity of Care Document ---
:1945 Author Organization [facility] t Address [address] [place] [address] Care Team Providers Name Role Phone MANFRED MUNOZ Primary Care Physician Unavailable Manfred Munoz Attending Clinician Unavailable RADIOLOGY Attending Clinician Unavailable Radiology Attending Clinician Unavailable Doctor Unassigned, [place] Attending Clinician Unavailable CATALINA BAILON Admitting Clinician Unavailable BRITT GOYAL II Admitting Clinician Unavailable Payers Payer Name Policy Type Policy Number Effective Date Expiration Date S juhi MEDICARE PART A \T\ [id number] 2008 B 00:00:00 [facility] [id number] 2011 MEDICARE SUPPLEMENT 00:00:00 Problems Condition Condition Condition Status Onset Resolution Last Treating Co mments Source Name Details Category Date Date Treatment Clinician Date [id number] Mixed Problem Common hyperlipid Spirit emia - [facility] [id number] Primary Problem Common insomnia [facility] - [facility] [id number] Essential Problem Comm on hypertensi Spirit on - [facility] [id number] Constipati Problem Com mon on, Spirit unspecifie - CHI d St constipati [facility] [place] [id number] CLL Problem Common (chronic Spirit lymphocyti - [facility] c leukemia) [facility] [id number] Non-season Problem Com mon al Spirit allergic - [facility] rhinitis, St unspecifie [facility] [id number] Primary Problem Commo n osteoarthr Spirit itis - [facility] involving [facility] [id number] ANÍBAL Problem Common (generaliz Spirit ed anxiety - [facility] disorder) [facility] [id number] Anxiety Problem Commo n about Spirit health [facility] [id number] [place] [address] left hip Spirit joint - [facility] [id number] Tinnitus, Problem Comm on unspecifie Spirit d - [facility] laterality [facility] [id number] Herpes Problem Common zoster [facility] with - CHI ophthalmic St complicati [facility] on, Medical unspecifie Center d herpes zoster eye disease [id number] Trochanter Problem Comm on ic Spirit bursitis - [facility] of left [facility] [id number] Panic Problem Common attack Spirit - [facility] [id number] [place], [place] [id number] joint, Spirit knee, left - [facility] [id number] Hip pain, Problem Comm on left [facility] [id number] Acute pain Problem C ommon of left [facility] knee [facility] [id number] Status Problem Common post Spirit arthroscop - [facility] y of left [facility] Allergies, Adverse Reactions, Alerts Allergy Allergy Status Severity Reaction(s) Onset Inactive Treating Comm ents Source Name Type Date Date Clinician codeine codeine Active sick in Common stomach [facility] ciproflo ciproflo Active Unknown Commo n xacin xacin [facility] tramadol tramadol Active Rash Common [facility] nitrofur nitrofur Active Unknown Commo n antoin, antoin, Spirit macrocry macrocry - CHI stals / stals / St nitrofur nitrofur [facility] antoin, antoin, Medical monohydr monohydr Center ate ate NO KNOWN Drug Active Univers ALLERGIE Class ity of S [facility] Social History Social Habit Start Date Stop Date Quantity Comments Source History of Tobacco Use Co mmon [facility] Sex Assigned At Com mon [facility] Smoking Status Start Date Stop Date Source Never Smoker Common [facility] Ce nter Former Smoker 2021-09-03 00:00:00 2021-09-03 Common Spiri t - CHI St 00:00:00 [facility] nter Tobacco smoking [facility] xa consumption unknown Medical Bran ch Medications Ordered Filled Start Stop Current Ordering Indication Dosage Frequency Signature Comments Components Source Medication Medication Date Date Medication? Clinician (SIG) Name Name traMADol-Ac traMADol-Ac No 2{table traMADol-A etaminophen etaminophen 11-12 ts_as_n cetaminoph 37.5-325 MG 37.5-325 MG 00:00: eeded} en 00 37.5-325 MG traMADol-Ac traMADol-Ac No 2{table traMADol-A etaminophen etaminophen 11-12 ts_as_n cetaminoph 37.5-325 MG 37.5-325 MG 00:00: eeded} en 00 37.5-325 MG traMADol-Ac traMADol-Ac No 2{table traMADol-A etaminophen etaminophen 11-12 ts_as_n cetaminoph 37.5-325 MG 37.5-325 MG 00:00: eeded} en 00 37.5-325 MG LORazepam LORazepam No QD LORazepam 0.5 MG 0.5 MG 7-01 0.5 MG 00:00: 00 LORazepam LORazepam 0 No QD LORazepam 0.5 MG 0.5 MG 7-01 0.5 MG 00:00: 00 LORazepam LORazepam 0 No QD LORazepam 0.5 MG 0.5 MG 7-01 0.5 MG 00:00: 00 LORazepam LORazepam 2021-0 No QD LORazepam 0.5 MG 0.5 MG 7-01 0.5 MG 00:00: 00 LORazepam LORazepam 0 No QD LORazepam 0.5 MG 0.5 MG 7-01 0.5 MG 00:00: 00 LORazepam LORazepam 0 No QD LORazepam 0.5 MG 0.5 MG 7-01 0.5 MG 00:00: 00 LORazepam LORazepam 2021-0 No QD LORazepam 0.5 MG 0.5 MG 7-01 0.5 MG 00:00: 00 LORazepam LORazepam 0 No QD LORazepam 0.5 MG 0.5 MG 7-01 0.5 MG 00:00: 00 LORazepam LORazepam 2021-0 No QD LORazepam 0.5 MG 0.5 MG 7-01 0.5 MG 00:00: 00 Kenalog Kenalog 0 No 40mg Common (Triamcinol (Triamcinol 5-17 S pirit one) one) 00:00: - CHI 00 [facility] Kenalog Kenalog 2021-0 No 40mg Common (Triamcinol (Triamcinol 5-17 S pirit one) one) 00:00: - CHI 00 [facility] Kenalog Kenalog 2021-0 No 40mg Common (Triamcinol (Triamcinol 5-17 S pirit one) one) 00:00: - CHI 00 [facility] Kenalog Kenalog 0 No 40mg Common (Triamcinol (Triamcinol 5-17 S pirit one) one) 00:00: - CHI 00 [facility] Kengabino Kenalog 0 No 40mg Common (Triamcinol (Triamcinol 5-17 S pirit one) one) 00:00: - CHI 00 [facility] Kengabino Kenalog 0 No 40mg Common (Triamcinol (Triamcinol 5-17 S pirit one) one) 00:00: - CHI 00 [facility] Kengabino Kenalog 2021-0 No 40mg Common (Triamcinol (Triamcinol 5-17 S pirit one) one) 00:00: - CHI 00 [facility] Kengabino Kenalog 2021-0 No 40mg Common (Triamcinol (Triamcinol 5-17 S pirit one) one) 00:00: - CHI 00 [facility] Kenalog Kenalog 2021-0 No 40mg Common (Triamcinol (Triamcinol 5-17 S pirit one) one) 00:00: - CHI 00 [facility] Kenalog Kenalog 2021-0 No 40mg Common (Triamcinol (Triamcinol 5-17 S pirit one) one) 00:00: - CHI 00 [facility] Kenalog Kenalog 2021-0 No 40mg Common (Triamcinol (Triamcinol 5-17 S pirit one) one) 00:00: - CHI 00 [facility] Kenalog Kenalog 2021-0 No 40mg Common (Triamcinol (Triamcinol 5-17 S pirit one) one) 00:00: - CHI 00 [facility] Dangeloalog Kenalog 2021-0 No 40mg Common (Triamcinol (Triamcinol 5-17 S pirit one) one) 00:00: - CHI 00 [facility] Dangeloalog Kenalog 2021-0 No 40mg Common (Triamcinol (Triamcinol 5-17 S pirit one) one) 00:00: - CHI 00 [facility] Dangeloalog Kenalog 2021-0 No 40mg Common (Triamcinol (Triamcinol 5-17 S pirit one) one) 00:00: - CHI 00 [facility] Margy Kenalog 2021-0 No 40mg Common (Triamcinol (Triamcinol 5-17 S pirit one) one) 00:00: - CHI 00 [facility] Margy Kenalog 2021-0 No 40mg Common (Triamcinol (Triamcinol 5-17 S pirit one) one) 00:00: - CHI 00 [facility] Margy Kenalog 2021-0 No 40mg Common (Triamcinol (Triamcinol 5-17 S pirit one) one) 00:00: - CHI 00 [facility] methylPREDN methylPREDN 2021-0 2021- No QD methylPRED ISolone 4 ISolone 4 07-20 NISolone 4 MG MG 00:00: 00:00 MG 00 :00 methylPREDN methylPREDN 2021-0 2021- No QD methylPRED ISolone 4 ISolone 4 07-20 NISolone 4 MG MG 00:00: 00:00 MG 00 :00 Pyridium Pyridium 2021-0 2021- No 1{table TID Pyridium 200 MG 200 MG 05-26 t_after 200 MG 00:00: 00:00 _meals} 00 :00 Augmentin Augmentin 2021-0 2021- No 1{table BID Augmentin 875-125 MG 875-125 MG 05-14 t} 875-125 MG 00:00: 00:00 00 :00 Amoxicillin Amoxicillin 2021-0 2- No 1{table BID Amoxicilli -Pot -Pot 04-29 t} n-Pot Clavulanate Clavulanate 00:00: 00:00 Clavulanat 875-125 MG 875-125 MG 00 :00 e 875-125 MG Amoxicillin Amoxicillin 2021-0 2022- No 1{table BID Amoxicilli -Pot -Pot 04-29 t} n-Pot Clavulanate Clavulanate 00:00: 00:00 Clavulanat 875-125 MG 875-125 MG 00 :00 e 875-125 MG Amoxicillin Amoxicillin 2021-0 2022- No 1{table BID Amoxicilli -Pot -Pot 04-29 t} n-Pot Clavulanate Clavulanate 00:00: 00:00 Clavulanat 875-125 MG 875-125 MG 00 :00 e 875-125 MG Lidocaine Lidocaine 2-0 No 10mg Com 04-07 Spirit 00:00: - CHI 00 [facility] Kenalog Kenalog 2-0 No 40mg Common (Triamcinol (Triamcinol 2-02 S pirit one) one) 00:00: - CHI 00 [facility] Lidocaine Lidocaine 2-0 No 10mg Com 04-07 Spirit 00:00: - CHI 00 [facility] Kenalog Kenalog 2-0 No 40mg Common (Triamcinol (Triamcinol 2-02 S pirit one) one) 00:00: - CHI 00 [facility] Lidocaine Lidocaine 2-0 No 10mg Com 04-07 Spirit 00:00: - CHI 00 [facility] Kenalog Kenalog 2-0 No 40mg Common (Triamcinol (Triamcinol 2-02 S pirit one) one) 00:00: - CHI 00 [facility] Lidocaine Lidocaine 2-0 No 10mg Com 04-07 Spirit 00:00: - CHI 00 [facility] Kenalog Kenalog 2-0 No 40mg Common (Triamcinol (Triamcinol 2-02 S pirit one) one) 00:00: - CHI 00 [facility] Lidocaine Lidocaine 2022-0 No 10mg Com 04-07 Spirit 00:00: - CHI 00 [facility] Kenalog Kenalog 2-0 No 40mg Common (Triamcinol (Triamcinol 2-02 S pirit one) one) 00:00: - CHI 00 [facility] Lidocaine Lidocaine 2-0 No 10mg Com 04-07 Spirit 00:00: - CHI 00 [facility] Kenalog Kenalog 2-0 No 40mg Common (Triamcinol (Triamcinol 2-02 S pirit one) one) 00:00: - CHI 00 [facility] Lidocaine Lidocaine 2-0 No 10mg Com 04-07 Spirit 00:00: - CHI 00 [facility] Kenalog Kenalog 2-0 No 40mg Common (Triamcinol (Triamcinol 2-02 S pirit one) one) 00:00: - CHI 00 [facility] Lidocaine Lidocaine 2-0 No 10mg Com 04-07 Spirit 00:00: - CHI 00 [facility] Kenalog Kenalog 2-0 No 40mg Common (Triamcinol (Triamcinol 2-02 S pirit one) one) 00:00: - CHI 00 [facility] Lidocaine Lidocaine 2-0 No 10mg Com 04-07 Spirit 00:00: - CHI 00 [facility] Kenalog Kenalog 2-0 No 40mg Common (Triamcinol (Triamcinol 2-02 S pirit one) one) 00:00: - CHI 00 [facility] Lidocaine Lidocaine 2-0 No 10mg Com 04-07 Spirit 00:00: - CHI 00 [facility] Kenalog Kenalog 2-0 No 40mg Common (Triamcinol (Triamcinol 2-02 S pirit one) one) 00:00: - CHI 00 [facility] Lidocaine Lidocaine 2-0 No 10mg Com 04-07 Spirit 00:00: - CHI 00 [facility] Kenalog Kenalog 2-0 No 40mg Common (Triamcinol (Triamcinol 2-02 S pirit one) one) 00:00: - CHI 00 [facility] Lidocaine Lidocaine 2022-0 No 10mg Com 04-07 Spirit 00:00: - CHI 00 [facility] Kenalog Kenalog 2-0 No 40mg Common (Triamcinol (Triamcinol 2-02 S pirit one) one) 00:00: - CHI 00 [facility] Lidocaine Lidocaine 2-0 No 10mg Com 04-07 Spirit 00:00: - CHI 00 [facility] Kenalog Kenalog 2-0 No 40mg Common (Triamcinol (Triamcinol 2-02 S pirit one) one) 00:00: - CHI 00 [facility] Lidocaine Lidocaine 2-0 No 10mg Com 04-07 Spirit 00:00: - CHI 00 [facility] Kenalog Kenalog 2-0 No 40mg Common (Triamcinol (Triamcinol 2-02 S pirit one) one) 00:00: - CHI 00 [facility] Lidocaine Lidocaine 2-0 No 10mg Com 04-07 Spirit 00:00: - CHI 00 [facility] Kenalog Kenalog 2-0 No 40mg Common (Triamcinol (Triamcinol 2-02 S pirit one) one) 00:00: - CHI 00 [facility] Lidocaine Lidocaine 2-0 No 10mg Com 04-07 Spirit 00:00: - CHI 00 [facility] Kenalog Kenalog 2-0 No 40mg Common (Triamcinol (Triamcinol 2-02 S pirit one) one) 00:00: - CHI 00 [facility] Lidocaine Lidocaine 2-0 No 10mg Com 04-07 Spirit 00:00: - CHI 00 [facility] Kenalog Kenalog 2-0 No 40mg Common (Triamcinol (Triamcinol 2-02 S pirit one) one) 00:00: - CHI 00 [facility] Lidocaine Lidocaine 2-0 No 10mg Com 04-07 Spirit 00:00: - CHI 00 [facility] Kenalog Kenalog 2-0 No 40mg Common (Triamcinol (Triamcinol 2-02 S pirit one) one) 00:00: - CHI 00 [facility] Lidocaine Lidocaine 2022-0 No 10mg Com 04-07 Spirit 00:00: - CHI 00 [facility] Kenalog Kenalog 2-0 No 40mg Common (Triamcinol (Triamcinol 2-02 S pirit one) one) 00:00: - CHI 00 [facility] Lidocaine Lidocaine 2-0 No 10mg Com 04-07 Spirit 00:00: - CHI 00 [facility] Kenalog Kenalog 2-0 No 40mg Common (Triamcinol (Triamcinol 2-02 S pirit one) one) 00:00: - CHI 00 [facility] Lidocaine Lidocaine 2-0 No 10mg Com 04-07 Spirit 00:00: - CHI 00 [facility] Kenalog Kenalog 2-0 No 40mg Common (Triamcinol (Triamcinol 2-02 S pirit one) one) 00:00: - CHI 00 [facility] Lidocaine Lidocaine 2-0 No 10mg Com 04-07 Spirit 00:00: - CHI 00 [facility] Kenalog Kenalog 2-0 No 40mg Common (Triamcinol (Triamcinol 2-02 S pirit one) one) 00:00: - CHI 00 [facility] Lidocaine Lidocaine 2-0 No 10mg Com 04-07 Spirit 00:00: - CHI 00 [facility] Kenalog Kenalog 2-0 No 40mg Common (Triamcinol (Triamcinol 2-02 S pirit one) one) 00:00: - CHI 00 [facility] Lidocaine Lidocaine 2-0 No 10mg Com 04-07 Spirit 00:00: - CHI 00 [facility] Kenalog Kenalog 2-0 No 40mg Common (Triamcinol (Triamcinol 2-02 S pirit one) one) 00:00: - CHI 00 [facility] Zoloft 50 Zoloft 50 1-0 No QD Zoloft 50 MG MG 3-08 MG 00:00: 00 Zoloft 50 Zoloft 50 1-0 No QD Zoloft 50 MG MG 3-08 MG 00:00: 00 Zoloft 50 Zoloft 50 1-0 No QD Zoloft 50 MG MG 3-08 MG 00:00: 00 Zoloft 50 Zoloft 50 1-0 No QD Zoloft 50 MG MG 3-08 MG 00:00: 00 Zoloft 50 Zoloft 50 0 No QD Zoloft 50 MG MG 3-08 MG 00:00: 00 Zoloft 50 Zoloft 50 0 No QD Zoloft 50 MG MG 3-08 MG 00:00: 00 Zoloft 50 Zoloft 50 0 No QD Zoloft 50 MG MG 3-08 MG 00:00: 00 Zoloft 50 Zoloft 50 0 No QD Zoloft 50 MG MG 3-08 MG 00:00: 00 Zoloft 50 Zoloft 50 0 No QD Zoloft 50 MG MG 3-08 MG 00:00: 00 Zoloft 50 Zoloft 50 0 No QD Zoloft 50 MG MG 3-08 MG 00:00: 00 Zoloft 50 Zoloft 50 0 No QD Zoloft 50 MG MG 3-08 MG 00:00: 00 Zoloft 50 Zoloft 50 0 No QD Zoloft 50 MG MG 3-08 MG 00:00: 00 Zoloft 50 Zoloft 50 0 No QD Zoloft 50 MG MG 3-08 MG 00:00: 00 Zoloft 50 Zoloft 50 0 No QD Zoloft 50 MG MG 3-08 MG 00:00: 00 Olmesartan Olmesartan Yes Manfred 1/2 tablet Common Medoxomil Medoxomil Munoz [facility] Amlodipine Amlodipine Yes Manfred 1/2 tab Common Besylate Besylate Munoz [facility] Acyclovir Acyclovir Yes Manfred 1-[address] Com [address] Munoz tablets [facility] Atorvastati Atorvastati Yes Manfred 1 tablet Common n Calcium n Calcium Munoz [facility] Daily Daily Yes Manfred not Common Vitamins Vitamins Munoz defined Spi [facility] Loratadine Loratadine Yes Manfred [address] [facility] Fiber Fiber Yes Manfred not Common Choice Choice Munoz defined [facility] Ibuprofen Ibuprofen Yes Manfred not Com mon Munoz defined [facility] Aspir-81 Aspir-81 Yes Manfred 1 tablet C om[facility] Alphagan P Alphagan P Yes Manfred 1 drop Common Munoz into Spirit affected - CHI eye [facility] Equate Equate Yes Manfred not Common Munoz defined Spirit - [facility] Atorvastati Atorvastati No 1{table QD Atorvastat n Calcium n Calcium t} in Calcium 40 MG 40 MG 40 MG Metoprolol Metoprolol No QD Metoprolol Succinate Succinate Succinate ER 25 MG ER 25 MG ER 25 MG Aspir-81 81 Aspir-81 81 No 1{table QD Aspir-81 MG MG t} 81 MG LORazepam LORazepam No QD LORazepam 0.5 MG 0.5 MG 0.5 MG amLODIPine amLODIPine No amLODIPine Besylate 10 Besylate 10 Besylate MG MG 10 MG Daily Daily No Daily Vitamins Vitamins Vitamins Olmesartan Olmesartan No Olmesartan Medoxomil Medoxomil Medoxomil 40 MG 40 MG 40 MG hydroCHLORO hydroCHLORO No 1{table QD hydroCHLOR thiazide 25 thiazide 25 t_in_ Othiazide MG MG e_morni 25 MG ng} Equate Equate No Equate Loratadine Loratadine No 1{table QD Loratadine 10 MG 10 MG t} 10 MG PreserVisio PreserVisio No PreserVisi n AREDS 2 n AREDS 2 on AREDS 2 Atorvastati Atorvastati No Atorvastat n Calcium n Calcium in Calcium 40 MG 40 MG 40 MG Fiber Fiber No Fiber Choice Choice Choice Latanoprost Latanoprost No 1{drop_ QD Latanopros 0.005 % 0.005 % into_af t 0.005 % fected_ eye_in_ the_eve [place]} Ibuprofen Ibuprofen No Ibuprofen Acyclovir Acyclovir No QD Acyclovir 400 MG 400 MG 400 MG amLODIPine amLODIPine No 1{table QD amLODIPine Besylate 5 Besylate 5 t} Besylate 5 MG MG MG Alphagan P Alphagan P No 1{drop_ TID Alphagan P 0.1 % 0.1 % into_af 0.1 % fected_ eye} amLODIPine amLODIPine No amLODIPine Besylate 10 Besylate 10 Besylate MG MG 10 MG Loratadine Loratadine No 1{table QD Loratadine 10 MG 10 MG t} 10 MG Olmesartan Olmesartan No Olmesartan Medoxomil Medoxomil Medoxomil 40 MG 40 MG 40 MG Equate Equate No Equate Aspir-81 81 Aspir-81 81 No 1{table QD Aspir-81 MG MG t} 81 MG Ibuprofen Ibuprofen No Ibuprofen Atorvastati Atorvastati No Atorvastat n Calcium n Calcium in Calcium 40 MG 40 MG 40 MG Acyclovir Acyclovir No QD Acyclovir 400 MG 400 MG 400 MG Daily Daily No Daily Vitamins Vitamins Vitamins hydroCHLORO hydroCHLORO No 1{table QD hydroCHLOR thiazide 25 thiazide 25 t_in_th Othiazide MG MG e_morni 25 MG ng} Alphagan P Alphagan P No 1{drop_ TID Alphagan P 0.1 % 0.1 % into_af 0.1 % fected_ eye} Fiber Fiber No Fiber Choice Choice Choice Metoprolol Metoprolol No Metoprolol Succinate Succinate Succinate ER 25 MG ER 25 MG ER 25 MG amLODIPine amLODIPine No amLODIPine Besylate 10 Besylate 10 Besylate MG MG 10 MG Loratadine Loratadine No 1{table QD Loratadine 10 MG 10 MG t} 10 MG Olmesartan Olmesartan No Olmesartan Medoxomil Medoxomil Medoxomil 40 MG 40 MG 40 MG Equate Equate No Equate Aspir-81 81 Aspir-81 81 No 1{table QD Aspir-81 MG MG t} 81 MG Ibuprofen Ibuprofen No Ibuprofen Atorvastati Atorvastati No Atorvastat n Calcium n Calcium in Calcium 40 MG 40 MG 40 MG Acyclovir Acyclovir No QD Acyclovir 400 MG 400 MG 400 MG Daily Daily No Daily Vitamins Vitamins Vitamins hydroCHLORO hydroCHLORO No 1{table QD hydroCHLOR thiazide 25 thiazide 25 t_in_th Othiazide MG MG e_morni 25 MG ng} Alphagan P Alphagan P No 1{drop_ TID Alphagan P 0.1 % 0.1 % into_af 0.1 % fected_ eye} Fiber Fiber No Fiber Choice Choice Choice Metoprolol Metoprolol No Metoprolol Succinate Succinate Succinate ER 25 MG ER 25 MG ER 25 MG amLODIPine amLODIPine No amLODIPine Besylate 10 Besylate 10 Besylate MG MG 10 MG Loratadine Loratadine No 1{table QD Loratadine 10 MG 10 MG t} 10 MG Olmesartan Olmesartan No Olmesartan Medoxomil Medoxomil Medoxomil 40 MG 40 MG 40 MG Equate Equate No Equate -81 81 - 81 No 1{table QD Aspir-81 MG MG t} 81 MG Ibuprofen Ibuprofen No Ibuprofen Atorvastati Atorvastati No Atorvastat n Calcium n Calcium in Calcium 40 MG 40 MG 40 MG Acyclovir Acyclovir No QD Acyclovir 400 MG 400 MG 400 MG Daily Daily No Daily Vitamins Vitamins Vitamins hydroCHLORO hydroCHLORO No 1{table QD hydroCHLOR thiazide 25 thiazide 25 t_in_th Othiazide MG MG e_morni 25 MG ng} Alphagan P Alphagan P No 1{drop_ TID Alphagan P 0.1 % 0.1 % into_af 0.1 % fected_ eye} Fiber Fiber No Fiber Choice Choice Choice Metoprolol Metoprolol No Metoprolol Succinate Succinate Succinate ER 25 MG ER 25 MG ER 25 MG Metoprolol Metoprolol No Metoprolol Succinate Succinate Succinate ER 25 MG ER 25 MG ER 25 MG amLODIPine amLODIPine No amLODIPine Besylate 10 Besylate 10 Besylate MG MG 10 MG Loratadine Loratadine No 1{table QD Loratadine 10 MG 10 MG t} 10 MG Olmesartan Olmesartan No Olmesartan Medoxomil Medoxomil Medoxomil 40 MG 40 MG 40 MG Equate Equate No Equate - 81 - 81 No 1{table QD Aspir-81 MG MG t} 81 MG Ibuprofen Ibuprofen No Ibuprofen Atorvastati Atorvastati No Atorvastat n Calcium n Calcium in Calcium 40 MG 40 MG 40 MG Daily Daily No Daily Vitamins Vitamins Vitamins hydroCHLORO hydroCHLORO No 1{table QD hydroCHLOR thiazide 25 thiazide 25 t_in_th Othiazide MG MG e_morni 25 MG ng} Alphagan P Alphagan P No 1{drop_ TID Alphagan P 0.1 % 0.1 % into_af 0.1 % fected_ eye} Fiber Fiber No Fiber Choice Choice Choice Acyclovir Acyclovir No QD Acyclovir 400 MG 400 MG 400 MG Metoprolol Metoprolol No Metoprolol Succinate Succinate Succinate ER 25 MG ER 25 MG ER 25 MG amLODIPine amLODIPine No amLODIPine Besylate 10 Besylate 10 Besylate MG MG 10 MG Loratadine Loratadine No 1{table QD Loratadine 10 MG 10 MG t} 10 MG Olmesartan Olmesartan No Olmesartan Medoxomil Medoxomil Medoxomil 40 MG 40 MG 40 MG Equate Equate No Equate Aspir-81 81 Aspir-81 81 No 1{table QD Aspir-81 MG MG t} 81 MG Ibuprofen Ibuprofen No Ibuprofen Atorvastati Atorvastati No Atorvastat n Calcium n Calcium in Calcium 40 MG 40 MG 40 MG Daily Daily No Daily Vitamins Vitamins Vitamins hydroCHLORO hydroCHLORO No 1{table QD hydroCHLOR thiazide 25 thiazide 25 t_in_th Othiazide MG MG e_morni 25 MG ng} Alphagan P Alphagan P No 1{drop_ TID Alphagan P 0.1 % 0.1 % into_af 0.1 % fected_ eye} Fiber Fiber No Fiber Choice Choice Choice Acyclovir Acyclovir No QD Acyclovir 400 MG 400 MG 400 MG amLODIPine amLODIPine No amLODIPine Besylate 10 Besylate 10 Besylate MG MG 10 MG Alphagan P Alphagan P No 1{drop_ TID Alphagan P 0.1 % 0.1 % into_af 0.1 % fected_ eye} Atorvastati Atorvastati No Atorvastat n Calcium n Calcium in Calcium 40 MG 40 MG 40 MG Equate Equate No Equate Daily Daily No Daily Vitamins Vitamins Vitamins Olmesartan Olmesartan No Olmesartan Medoxomil Medoxomil Medoxomil 40 MG 40 MG 40 MG Acyclovir Acyclovir No QD Acyclovir 400 MG 400 MG 400 MG Ibuprofen Ibuprofen No Ibuprofen Olmesartan Olmesartan No 1{table QD Olmesartan Medoxomil Medoxomil t} Medoxomil 40 MG 40 MG 40 MG hydroCHLORO hydroCHLORO No 1{table QD hydroCHLOR thiazide 25 thiazide 25 t_in_th Othiazide MG MG e_morni 25 MG ng} Latanoprost Latanoprost No 1{drop_ QD Latanopros 0.005 % 0.005 % into_af t 0.005 % fected_ eye_in_ the_eve [place]} Aspir-81 81 Aspir-81 81 No 1{table QD Aspir-81 MG MG t} 81 MG Atorvastati Atorvastati No 1{table QD Atorvastat n Calcium n Calcium t} in Calcium 40 MG 40 MG 40 MG Loratadine Loratadine No 1{table QD Loratadine 10 MG 10 MG t} 10 MG Fiber Fiber No Fiber Choice Choice Choice Metoprolol Metoprolol No Metoprolol Succinate Succinate Succinate ER 25 MG ER 25 MG ER 25 MG Equate Equate No Equate Acyclovir Acyclovir No QD Acyclovir 400 MG 400 MG 400 MG Loratadine Loratadine No 1{table QD Loratadine 10 MG 10 MG t} 10 MG Latanoprost Latanoprost No 1{drop_ QD Latanopros 0.005 % 0.005 % into_af t 0.005 % fected_ eye_in_ the_eve [place]} amLODIPine amLODIPine No amLODIPine Besylate 10 Besylate 10 Besylate MG MG 10 MG Alphagan P Alphagan P No 1{drop_ TID Alphagan P 0.1 % 0.1 % into_af 0.1 % fected_ eye} Olmesartan Olmesartan No Olmesartan Medoxomil Medoxomil Medoxomil 40 MG 40 MG 40 MG Metoprolol Metoprolol No Metoprolol Succinate Succinate Succinate ER 25 MG ER 25 MG ER 25 MG Atorvastati Atorvastati No Atorvastat n Calcium n Calcium in Calcium 40 MG 40 MG 40 MG Aspir-81 81 Aspir-81 81 No 1{table QD Aspir-81 MG MG t} 81 MG Fiber Fiber No Fiber Choice Choice Choice Atorvastati Atorvastati No 1{table QD Atorvastat n Calcium n Calcium t} in Calcium 40 MG 40 MG 40 MG Ibuprofen Ibuprofen No Ibuprofen hydroCHLORO hydroCHLORO No 1{table QD hydroCHLOR thiazide 25 thiazide 25 t_in_th Othiazide MG MG e_morni 25 MG ng} Olmesartan Olmesartan No 1{table QD Olmesartan Medoxomil Medoxomil t} Medoxomil 40 MG 40 MG 40 MG Daily Daily No Daily Vitamins Vitamins Vitamins Loratadine Loratadine No 1{table QD Loratadine 10 MG 10 MG t} 10 MG Equate Equate No Equate Acyclovir Acyclovir No QD Acyclovir 400 MG 400 MG 400 MG Latanoprost Latanoprost No 1{drop_ QD Latanopros 0.005 % 0.005 % into_af t 0.005 % fected_ eye[place]} amLODIPine amLODIPine No amLODIPine Besylate 10 Besylate 10 Besylate MG MG 10 MG Alphagan P Alphagan P No 1{drop_ TID Alphagan P 0.1 % 0.1 % into_af 0.1 % fected_ eye} Olmesartan Olmesartan No Olmesartan Medoxomil Medoxomil Medoxomil 40 MG 40 MG 40 MG Metoprolol Metoprolol No Metoprolol Succinate Succinate Succinate ER 25 MG ER 25 MG ER 25 MG Atorvastati Atorvastati No Atorvastat n Calcium n Calcium in Calcium 40 MG 40 MG 40 MG Aspir-81 81 Aspir-81 81 No 1{table QD Aspir-81 MG MG t} 81 MG Fiber Fiber No Fiber Choice Choice Choice Atorvastati Atorvastati No 1{table QD Atorvastat n Calcium n Calcium t} in Calcium 40 MG 40 MG 40 MG Ibuprofen Ibuprofen No Ibuprofen hydroCHLORO hydroCHLORO No 1{table QD hydroCHLOR thiazide 25 thiazide 25 t_in_th Othiazide MG MG e_morni 25 MG ng} Olmesartan Olmesartan No 1{table QD Olmesartan Medoxomil Medoxomil t} Medoxomil 40 MG 40 MG 40 MG Daily Daily No Daily Vitamins Vitamins Vitamins Atorvastati Atorvastati No Atorvastat n Calcium n Calcium in Calcium 40 MG 40 MG 40 MG Metoprolol Metoprolol No Metoprolol Succinate Succinate Succinate ER 25 MG ER 25 MG ER 25 MG Olmesartan Olmesartan No Olmesartan Medoxomil Medoxomil Medoxomil 40 MG 40 MG 40 MG Alphagan P Alphagan P No 1{drop_ TID Alphagan P 0.1 % 0.1 % into_af 0.1 % fected_ eye} amLODIPine amLODIPine No amLODIPine Besylate 10 Besylate 10 Besylate MG MG 10 MG Atorvastati Atorvastati No 1{table QD Atorvastat n Calcium n Calcium t} in Calcium 40 MG 40 MG 40 MG Acyclovir Acyclovir No QD Acyclovir 400 MG 400 MG 400 MG Equate Equate No Equate Loratadine Loratadine No 1{table QD Loratadine 10 MG 10 MG t} 10 MG Olmesartan Olmesartan No 1{table QD Olmesartan Medoxomil Medoxomil t} Medoxomil 40 MG 40 MG 40 MG Fiber Fiber No Fiber Choice Choice Choice Latanoprost Latanoprost No 1{drop_ QD Latanopros 0.005 % 0.005 % into_af t 0.005 % fected_ eye_in_ [place]} Daily Daily No Daily Vitamins Vitamins Vitamins hydroCHLORO hydroCHLORO No 1{table QD hydroCHLOR thiazide 25 thiazide 25 t_in_th Othiazide MG MG e_morni 25 MG ng} Aspir-81 81 Aspir-81 81 No 1{table QD Aspir-81 MG MG t} 81 MG Ibuprofen Ibuprofen No Ibuprofen Atorvastati Atorvastati No Atorvastat n Calcium n Calcium in Calcium 40 MG 40 MG 40 MG Olmesartan Olmesartan No 1{table QD Olmesartan Medoxomil Medoxomil t} Medoxomil 40 MG 40 MG 40 MG Aspir-81 81 Aspir-81 81 No 1{table QD Aspir-81 MG MG t} 81 MG amLODIPine amLODIPine No QD amLODIPine Besylate 10 Besylate 10 Besylate MG MG 10 MG Fiber Fiber No Fiber Choice Choice Choice Metoprolol Metoprolol No QD Metoprolol Succinate Succinate Succinate ER 25 MG ER 25 MG ER 25 MG Daily Daily No Daily Vitamins Vitamins Vitamins Ibuprofen Ibuprofen No Ibuprofen Latanoprost Latanoprost No 1{drop_ QD Latanopros 0.005 % 0.005 % into_af t 0.005 % fected_ eye_in_ the[place]} Alphagan P Alphagan P No 1{drop_ TID Alphagan P 0.1 % 0.1 % into_af 0.1 % fected_ eye} Loratadine Loratadine No 1{table QD Loratadine 10 MG 10 MG t} 10 MG Acyclovir Acyclovir No QD Acyclovir 400 MG 400 MG 400 MG Equate Equate No Equate hydroCHLORO hydroCHLORO No 1{table QD hydroCHLOR thiazide 25 thiazide 25 t_in_th Othiazide MG MG e_morni 25 MG ng} PreserVisio PreserVisio No PreserVisi n AREDS 2 n AREDS 2 on AREDS 2 Olmesartan Olmesartan No Olmesartan Medoxomil Medoxomil Medoxomil 40 MG 40 MG 40 MG Atorvastati Atorvastati No Atorvastat n Calcium n Calcium in Calcium 40 MG 40 MG 40 MG Olmesartan Olmesartan No 1{table QD Olmesartan Medoxomil Medoxomil t} Medoxomil 40 MG 40 MG 40 MG Aspir-81 81 Aspir-81 81 No 1{table QD Aspir-81 MG MG t} 81 MG amLODIPine amLODIPine No QD amLODIPine Besylate 10 Besylate 10 Besylate MG MG 10 MG Fiber Fiber No Fiber Choice Choice Choice Metoprolol Metoprolol No QD Metoprolol Succinate Succinate Succinate ER 25 MG ER 25 MG ER 25 MG Daily Daily No Daily Vitamins Vitamins Vitamins Ibuprofen Ibuprofen No Ibuprofen Latanoprost Latanoprost No 1{drop_ QD Latanopros 0.005 % 0.005 % into_af t 0.005 % fected_ eye_in_ the[place]} Alphagan P Alphagan P No 1{drop_ TID Alphagan P 0.1 % 0.1 % into_af 0.1 % fected_ eye} Loratadine Loratadine No 1{table QD Loratadine 10 MG 10 MG t} 10 MG Acyclovir Acyclovir No QD Acyclovir 400 MG 400 MG 400 MG Equate Equate No Equate hydroCHLORO hydroCHLORO No 1{table QD hydroCHLOR thiazide 25 thiazide 25 t_in_th Othiazide MG MG e_morni 25 MG ng} PreserVisio PreserVisio No PreserVisi n AREDS 2 n AREDS 2 on AREDS 2 Olmesartan Olmesartan No Olmesartan Medoxomil Medoxomil Medoxomil 40 MG 40 MG 40 MG Atorvastati Atorvastati No Atorvastat n Calcium n Calcium in Calcium 40 MG 40 MG 40 MG Olmesartan Olmesartan No 1{table QD Olmesartan Medoxomil Medoxomil t} Medoxomil 40 MG 40 MG 40 MG -81 81 Aspir- 81 No 1{table QD Aspir-81 MG MG t} 81 MG amLODIPine amLODIPine No QD amLODIPine Besylate 10 Besylate 10 Besylate MG MG 10 MG Fiber Fiber No Fiber Choice Choice Choice Metoprolol Metoprolol No QD Metoprolol Succinate Succinate Succinate ER 25 MG ER 25 MG ER 25 MG Daily Daily No Daily Vitamins Vitamins Vitamins Ibuprofen Ibuprofen No Ibuprofen Latanoprost Latanoprost No 1{drop_ QD Latanopros 0.005 % 0.005 % into_af t 0.005 % fected_ eye_in_ the[place]} Alphagan P Alphagan P No 1{drop_ TID Alphagan P 0.1 % 0.1 % into_af 0.1 % fected_ eye} Loratadine Loratadine No 1{table QD Loratadine 10 MG 10 MG t} 10 MG Acyclovir Acyclovir No QD Acyclovir 400 MG 400 MG 400 MG Equate Equate No Equate hydroCHLORO hydroCHLORO No 1{table QD hydroCHLOR thiazide 25 thiazide 25 t_in_th Othiazide MG MG e_morni 25 MG ng} PreserVisio PreserVisio No PreserVisi n AREDS 2 n AREDS 2 on AREDS 2 Olmesartan Olmesartan No Olmesartan Medoxomil Medoxomil Medoxomil 40 MG 40 MG 40 MG Ibuprofen Ibuprofen No Ibuprofen Equate Equate No Equate Aspir-81 81 Aspir-81 81 No 1{table QD Aspir-81 MG MG t} 81 MG Fiber Fiber No Fiber Choice Choice Choice Olmesartan Olmesartan No Olmesartan Medoxomil Medoxomil Medoxomil 40 MG 40 MG 40 MG Acyclovir Acyclovir No QD Acyclovir 400 MG 400 MG 400 MG Olmesartan Olmesartan No 1{table QD Olmesartan Medoxomil Medoxomil t} Medoxomil 40 MG 40 MG 40 MG Metoprolol Metoprolol No QD Metoprolol Succinate Succinate Succinate ER 25 MG ER 25 MG ER 25 MG Loratadine Loratadine No 1{table QD Loratadine 10 MG 10 MG t} 10 MG Atorvastati Atorvastati No Atorvastat n Calcium n Calcium in Calcium 40 MG 40 MG 40 MG amLODIPine amLODIPine No QD amLODIPine Besylate 10 Besylate 10 Besylate MG MG 10 MG hydroCHLORO hydroCHLORO No 1{table QD hydroCHLOR thiazide 25 thiazide 25 t_in_th Othiazide MG MG e_morni 25 MG ng} Alphagan P Alphagan P No 1{drop_ TID Alphagan P 0.1 % 0.1 % into_af 0.1 % fected_ eye} PreserVisio PreserVisio No PreserVisi n AREDS 2 n AREDS 2 on AREDS 2 Latanoprost Latanoprost No 1{drop_ QD Latanopros 0.005 % 0.005 % into_af t 0.005 % fected_ eye_in_ the[place]} Daily Daily No Daily Vitamins Vitamins Vitamins Fiber Fiber No Fiber Choice Choice Choice Daily Daily No Daily Vitamins Vitamins Vitamins Atorvastati Atorvastati No Atorvastat n Calcium n Calcium in Calcium 40 MG 40 MG 40 MG Metoprolol Metoprolol No QD Metoprolol Succinate Succinate Succinate ER 25 MG ER 25 MG ER 25 MG Latanoprost Latanoprost No 1{drop_ QD Latanopros 0.005 % 0.005 % into_af t 0.005 % fected_ eye_in_ the[place]} Aspir-81 81 Aspir-81 81 No 1{table QD Aspir-81 MG MG t} 81 MG Alphagan P Alphagan P No 1{drop_ TID Alphagan P 0.1 % 0.1 % into_af 0.1 % fected_ eye} Ibuprofen Ibuprofen No Ibuprofen Olmesartan Olmesartan No Olmesartan Medoxomil Medoxomil Medoxomil 40 MG 40 MG 40 MG PreserVisio PreserVisio No PreserVisi n AREDS 2 n AREDS 2 on AREDS 2 hydroCHLORO hydroCHLORO No 1{table QD hydroCHLOR thiazide 25 thiazide 25 t_in_th Othiazide MG MG e_morni 25 MG ng} Equate Equate No Equate Acyclovir Acyclovir No QD Acyclovir 400 MG 400 MG 400 MG Olmesartan Olmesartan No 1{table QD Olmesartan Medoxomil Medoxomil t} Medoxomil 40 MG 40 MG 40 MG Loratadine Loratadine No 1{table QD Loratadine 10 MG 10 MG t} 10 MG amLODIPine amLODIPine No amLODIPine Besylate 10 Besylate 10 Besylate MG MG 10 MG Metoprolol Metoprolol No QD Metoprolol Succinate Succinate Succinate ER 25 MG ER 25 MG ER 25 MG Olmesartan Olmesartan No QD Olmesartan Medoxomil Medoxomil Medoxomil 40 MG 40 MG 40 MG PreserVisio PreserVisio No PreserVisi n AREDS 2 n AREDS 2 on AREDS 2 Acyclovir Acyclovir No QD Acyclovir 400 MG 400 MG 400 MG Olmesartan Olmesartan No Olmesartan Medoxomil Medoxomil Medoxomil 40 MG 40 MG 40 MG hydroCHLORO hydroCHLORO No 1{table QD hydroCHLOR thiazide 25 thiazide 25 t_in_th Othiazide MG MG e_morni 25 MG ng} Atorvastati Atorvastati No Atorvastat n Calcium n Calcium in Calcium 40 MG 40 MG 40 MG Alphagan P Alphagan P No 1{drop_ TID Alphagan P 0.1 % 0.1 % into_af 0.1 % fected_ eye} Aspir-81 81 Aspir-81 81 No 1{table QD Aspir-81 MG MG t} 81 MG Ibuprofen Ibuprofen No Ibuprofen Atorvastati Atorvastati No 1{table QD Atorvastat n Calcium n Calcium t} in Calcium 40 MG 40 MG 40 MG Equate Equate No Equate Latanoprost Latanoprost No 1{drop_ QD Latanopros 0.005 % 0.005 % into_af t 0.005 % fected_ eye_in_ the[place]} amLODIPine amLODIPine No 1{table QD amLODIPine Besylate 5 Besylate 5 t} Besylate 5 MG MG MG amLODIPine amLODIPine No amLODIPine Besylate 10 Besylate 10 Besylate MG MG 10 MG Daily Daily No Daily Vitamins Vitamins Vitamins Loratadine Loratadine No 1{table QD Loratadine 10 MG 10 MG t} 10 MG Fiber Fiber No Fiber Choice Choice Choice Metoprolol Metoprolol No QD Metoprolol Succinate Succinate Succinate ER 25 MG ER 25 MG ER 25 MG Olmesartan Olmesartan No QD Olmesartan Medoxomil Medoxomil Medoxomil 40 MG 40 MG 40 MG PreserVisio PreserVisio No PreserVisi n AREDS 2 n AREDS 2 on AREDS 2 Acyclovir Acyclovir No QD Acyclovir 400 MG 400 MG 400 MG Olmesartan Olmesartan No Olmesartan Medoxomil Medoxomil Medoxomil 40 MG 40 MG 40 MG hydroCHLORO hydroCHLORO No 1{table QD hydroCHLOR thiazide 25 thiazide 25 t_in_th Othiazide MG MG e_morni 25 MG ng} Atorvastati Atorvastati No Atorvastat n Calcium n Calcium in Calcium 40 MG 40 MG 40 MG Alphagan P Alphagan P No 1{drop_ TID Alphagan P 0.1 % 0.1 % into_af 0.1 % fected_ eye} Aspir-81 81 Aspir- 81 No 1{table QD Aspir-81 MG MG t} 81 MG Ibuprofen Ibuprofen No Ibuprofen Atorvastati Atorvastati No 1{table QD Atorvastat n Calcium n Calcium t} in Calcium 40 MG 40 MG 40 MG Equate Equate No Equate Latanoprost Latanoprost No 1{drop_ QD Latanopros 0.005 % 0.005 % into_af t 0.005 % fected_ eye_in_ the[place]} amLODIPine amLODIPine No 1{table QD amLODIPine Besylate 5 Besylate 5 t} Besylate 5 MG MG MG amLODIPine amLODIPine No amLODIPine Besylate 10 Besylate 10 Besylate MG MG 10 MG Daily Daily No Daily Vitamins Vitamins Vitamins Loratadine Loratadine No 1{table QD Loratadine 10 MG 10 MG t} 10 MG Fiber Fiber No Fiber Choice Choice Choice hydroCHLORO hydroCHLORO No 1{table QD hydroCHLOR thiazide 25 thiazide 25 t_in_th Othiazide MG MG e_morni 25 MG ng} Equate Equate No Equate -81 81 Aspir- 81 No 1{table QD Aspir-81 MG MG t} 81 MG Daily Daily No Daily Vitamins Vitamins Vitamins Acyclovir Acyclovir No QD Acyclovir 400 MG 400 MG 400 MG Atorvastati Atorvastati No Atorvastat n Calcium n Calcium in Calcium 40 MG 40 MG 40 MG PreserVisio PreserVisio No PreserVisi n AREDS 2 n AREDS 2 on AREDS 2 Latanoprost Latanoprost No 1{drop_ QD Latanopros 0.005 % 0.005 % into_af t 0.005 % fected_ eye_in_ the[place]} Fiber Fiber No Fiber Choice Choice Choice Loratadine Loratadine No 1{table QD Loratadine 10 MG 10 MG t} 10 MG Olmesartan Olmesartan No Olmesartan Medoxomil Medoxomil Medoxomil 40 MG 40 MG 40 MG Ibuprofen Ibuprofen No Ibuprofen amLODIPine amLODIPine No amLODIPine Besylate 10 Besylate 10 Besylate MG MG 10 MG Metoprolol Metoprolol No QD Metoprolol Succinate Succinate Succinate ER 25 MG ER 25 MG ER 25 MG Alphagan P Alphagan P No 1{drop_ TID Alphagan P 0.1 % 0.1 % into_af 0.1 % fected_ eye} hydroCHLORO hydroCHLORO No 1{table QD hydroCHLOR thiazide 25 thiazide 25 t_in_th Othiazide MG MG e_morni 25 MG ng} Equate Equate No Equate Aspir-81 81 Aspir-81 81 No 1{table QD Aspir-81 MG MG t} 81 MG Daily Daily No Daily Vitamins Vitamins Vitamins Acyclovir Acyclovir No QD Acyclovir 400 MG 400 MG 400 MG Atorvastati Atorvastati No Atorvastat n Calcium n Calcium in Calcium 40 MG 40 MG 40 MG PreserVisio PreserVisio No PreserVisi n AREDS 2 n AREDS 2 on AREDS 2 Latanoprost Latanoprost No 1{drop_ QD Latanopros 0.005 % 0.005 % into_af t 0.005 % fected_ eye_in_ the[place]} Fiber Fiber No Fiber Choice Choice Choice Loratadine Loratadine No 1{table QD Loratadine 10 MG 10 MG t} 10 MG Olmesartan Olmesartan No Olmesartan Medoxomil Medoxomil Medoxomil 40 MG 40 MG 40 MG Ibuprofen Ibuprofen No Ibuprofen amLODIPine amLODIPine No amLODIPine Besylate 10 Besylate 10 Besylate MG MG 10 MG Metoprolol Metoprolol No QD Metoprolol Succinate Succinate Succinate ER 25 MG ER 25 MG ER 25 MG Alphagan P Alphagan P No 1{drop_ TID Alphagan P 0.1 % 0.1 % into_af 0.1 % fected_ eye} Latanoprost Latanoprost No 1{drop_ QD Latanopros 0.005 % 0.005 % into_af t 0.005 % fected_ eye_in_ the[place]} Loratadine Loratadine No 1{table QD Loratadine 10 MG 10 MG t} 10 MG Atorvastati Atorvastati No Atorvastat n Calcium n Calcium in Calcium 40 MG 40 MG 40 MG Ibuprofen Ibuprofen No Ibuprofen - 81 81 No 1{table QD Aspir-81 MG MG t} 81 MG Alphagan P Alphagan P No 1{drop_ TID Alphagan P 0.1 % 0.1 % into_af 0.1 % fected_ eye} Metoprolol Metoprolol No QD Metoprolol Succinate Succinate Succinate ER 25 MG ER 25 MG ER 25 MG Olmesartan Olmesartan No Olmesartan Medoxomil Medoxomil Medoxomil 40 MG 40 MG 40 MG PreserVisio PreserVisio No PreserVisi n AREDS 2 n AREDS 2 on AREDS 2 Daily Daily No Daily Vitamins Vitamins Vitamins amLODIPine amLODIPine No amLODIPine Besylate 10 Besylate 10 Besylate MG MG 10 MG Fiber Fiber No Fiber Choice Choice Choice hydroCHLORO hydroCHLORO No 1{table QD hydroCHLOR thiazide 25 thiazide 25 t_in_th Othiazide MG MG e_morni 25 MG ng} Acyclovir Acyclovir No QD Acyclovir 400 MG 400 MG 400 MG Equate Equate No Equate Latanoprost Latanoprost No 1{drop_ QD Latanopros 0.005 % 0.005 % into_af t 0.005 % fected_ eye_in_ the[place]} Loratadine Loratadine No 1{table QD Loratadine 10 MG 10 MG t} 10 MG Atorvastati Atorvastati No Atorvastat n Calcium n Calcium in Calcium 40 MG 40 MG 40 MG Ibuprofen Ibuprofen No Ibuprofen - 81 No 1{table QD Aspir-81 MG MG t} 81 MG Alphagan P Alphagan P No 1{drop_ TID Alphagan P 0.1 % 0.1 % into_af 0.1 % fected_ eye} Metoprolol Metoprolol No QD Metoprolol Succinate Succinate Succinate ER 25 MG ER 25 MG ER 25 MG Olmesartan Olmesartan No Olmesartan Medoxomil Medoxomil Medoxomil 40 MG 40 MG 40 MG PreserVisio PreserVisio No PreserVisi n AREDS 2 n AREDS 2 on AREDS 2 Daily Daily No Daily Vitamins Vitamins Vitamins amLODIPine amLODIPine No amLODIPine Besylate 10 Besylate 10 Besylate MG MG 10 MG Fiber Fiber No Fiber Choice Choice Choice hydroCHLORO hydroCHLORO No 1{table QD hydroCHLOR thiazide 25 thiazide 25 t_in_th Othiazide MG MG e_morni 25 MG ng} Acyclovir Acyclovir No QD Acyclovir 400 MG 400 MG 400 MG Equate Equate No Equate Ibuprofen Ibuprofen No Ibuprofen Acyclovir Acyclovir No QD Acyclovir 400 MG 400 MG 400 MG Metoprolol Metoprolol No QD Metoprolol Succinate Succinate Succinate ER 25 MG ER 25 MG ER 25 MG Latanoprost Latanoprost No 1{drop_ QD Latanopros 0.005 % 0.005 % into_af t 0.005 % fected_ eye_in_ the[place]} Olmesartan Olmesartan No Olmesartan Medoxomil Medoxomil Medoxomil 40 MG 40 MG 40 MG Loratadine Loratadine No 1{table QD Loratadine 10 MG 10 MG t} 10 MG amLODIPine amLODIPine No amLODIPine Besylate 10 Besylate 10 Besylate MG MG 10 MG PreserVisio PreserVisio No PreserVisi n AREDS 2 n AREDS 2 on AREDS 2 Fiber Fiber No Fiber Choice Choice Choice hydroCHLORO hydroCHLORO No 1{table QD hydroCHLOR thiazide 25 thiazide 25 t_in_th Othiazide MG MG e_morni 25 MG ng} Aspir-81 81 Aspir-81 81 No 1{table QD Aspir-81 MG MG t} 81 MG Atorvastati Atorvastati No Atorvastat n Calcium n Calcium in Calcium 40 MG 40 MG 40 MG Equate Equate No Equate Daily Daily No Daily Vitamins Vitamins Vitamins Alphagan P Alphagan P No 1{drop_ TID Alphagan P 0.1 % 0.1 % into_af 0.1 % fected_ eye} Ibuprofen Ibuprofen No Ibuprofen Acyclovir Acyclovir No QD Acyclovir 400 MG 400 MG 400 MG Metoprolol Metoprolol No QD Metoprolol Succinate Succinate Succinate ER 25 MG ER 25 MG ER 25 MG Latanoprost Latanoprost No 1{drop_ QD Latanopros 0.005 % 0.005 % into_af t 0.005 % fected_ eye_in_ the[place]} Olmesartan Olmesartan No Olmesartan Medoxomil Medoxomil Medoxomil 40 MG 40 MG 40 MG Loratadine Loratadine No 1{table QD Loratadine 10 MG 10 MG t} 10 MG PreserVisio PreserVisio No PreserVisi n AREDS 2 n AREDS 2 on AREDS 2 Atorvastati Atorvastati No Atorvastat n Calcium n Calcium in Calcium 40 MG 40 MG 40 MG Fiber Fiber No Fiber Choice Choice Choice hydroCHLORO hydroCHLORO No 1{table QD hydroCHLOR thiazide 25 thiazide 25 t_in_th Othiazide MG MG e_morni 25 MG ng} Aspir-81 81 Aspir- 81 No 1{table QD Aspir-81 MG MG t} 81 MG amLODIPine amLODIPine No amLODIPine Besylate 10 Besylate 10 Besylate MG MG 10 MG Equate Equate No Equate Daily Daily No Daily Vitamins Vitamins Vitamins Alphagan P Alphagan P No 1{drop_ TID Alphagan P 0.1 % 0.1 % into_af 0.1 % fected_ eye} Acyclovir Acyclovir No QD Acyclovir 400 MG 400 MG 400 MG PreserVisio PreserVisio No PreserVisi n AREDS 2 n AREDS 2 on AREDS 2 Olmesartan Olmesartan No 1{table QD Olmesartan Medoxomil Medoxomil t} Medoxomil 40 MG 40 MG 40 MG amLODIPine amLODIPine No amLODIPine Besylate 10 Besylate 10 Besylate MG MG 10 MG Ibuprofen Ibuprofen No Ibuprofen Olmesartan Olmesartan No Olmesartan Medoxomil Medoxomil Medoxomil 40 MG 40 MG 40 MG Daily Daily No Daily Vitamins Vitamins Vitamins hydroCHLORO hydroCHLORO No 1{table QD hydroCHLOR thiazide 25 thiazide 25 t_in_th Othiazide MG MG e_morni 25 MG ng} Aspir- 81 Aspir-81 81 No 1{table QD Aspir-81 MG MG t} 81 MG Equate Equate No Equate Fiber Fiber No Fiber Choice Choice Choice Latanoprost Latanoprost No 1{drop_ QD Latanopros 0.005 % 0.005 % into_af t 0.005 % fected_ eye_in_ the[place]} Loratadine Loratadine No 1{table QD Loratadine 10 MG 10 MG t} 10 MG Atorvastati Atorvastati No 1{table QD Atorvastat n Calcium n Calcium t} in Calcium 40 MG 40 MG 40 MG Metoprolol Metoprolol No QD Metoprolol Succinate Succinate Succinate ER 25 MG ER 25 MG ER 25 MG Alphagan P Alphagan P No 1{drop_ TID Alphagan P 0.1 % 0.1 % into_af 0.1 % fected_ eye} Atorvastati Atorvastati No Atorvastat n Calcium n Calcium in Calcium 40 MG 40 MG 40 MG Equate Equate No Equate Ibuprofen Ibuprofen No Ibuprofen LORazepam LORazepam No QD LORazepam 0.5 MG 0.5 MG 0.5 MG amLODIPine amLODIPine No amLODIPine Besylate 10 Besylate 10 Besylate MG MG 10 MG Fiber Fiber No Fiber Choice Choice Choice Acyclovir Acyclovir No QD Acyclovir 400 MG 400 MG 400 MG amLODIPine amLODIPine No 1{table QD amLODIPine Besylate 5 Besylate 5 t} Besylate 5 MG MG MG Atorvastati Atorvastati No 1{table QD Atorvastat n Calcium n Calcium t} in Calcium 40 MG 40 MG 40 MG Olmesartan Olmesartan No Olmesartan Medoxomil Medoxomil Medoxomil 40 MG 40 MG 40 MG Atorvastati Atorvastati No Atorvastat n Calcium n Calcium in Calcium 40 MG 40 MG 40 MG PreserVisio PreserVisio No PreserVisi n AREDS 2 n AREDS 2 on AREDS 2 Alphagan P Alphagan P No 1{drop_ TID Alphagan P 0.1 % 0.1 % into_af 0.1 % fected_ eye} Latanoprost Latanoprost No 1{drop_ QD Latanopros 0.005 % 0.005 % into_af t 0.005 % fected_ eye_in_ the[place]} hydroCHLORO hydroCHLORO No 1{table QD hydroCHLOR thiazide 25 thiazide 25 t_in_th Othiazide MG MG e_morni 25 MG ng} Loratadine Loratadine No 1{table QD Loratadine 10 MG 10 MG t} 10 MG Aspir-81 81 Aspir-81 81 No 1{table QD Aspir-81 MG MG t} 81 MG Metoprolol Metoprolol No QD Metoprolol Succinate Succinate Succinate ER 25 MG ER 25 MG ER 25 MG Daily Daily No Daily Vitamins Vitamins Vitamins Ibuprofen Ibuprofen No Ibuprofen Daily Daily No Daily Vitamins Vitamins Vitamins Fiber Fiber No Fiber Choice Choice Choice hydroCHLORO hydroCHLORO No 1{table QD hydroCHLOR thiazide 25 thiazide 25 t_in_th Othiazide MG MG e_morni 25 MG ng} Equate Equate No Equate Acyclovir Acyclovir No QD Acyclovir 400 MG 400 MG 400 MG LORazepam LORazepam No QD LORazepam 0.5 MG 0.5 MG 0.5 MG amLODIPine amLODIPine No 1{table QD amLODIPine Besylate 5 Besylate 5 t} Besylate 5 MG MG MG Atorvastati Atorvastati No 1{table QD Atorvastat n Calcium n Calcium t} in Calcium 40 MG 40 MG 40 MG Olmesartan Olmesartan No Olmesartan Medoxomil Medoxomil Medoxomil 40 MG 40 MG 40 MG PreserVisio PreserVisio No PreserVisi n AREDS 2 n AREDS 2 on AREDS 2 amLODIPine amLODIPine No amLODIPine Besylate 10 Besylate 10 Besylate MG MG 10 MG Alphagan P Alphagan P No 1{drop_ TID Alphagan P 0.1 % 0.1 % into_af 0.1 % fected_ eye} Loratadine Loratadine No 1{table QD Loratadine 10 MG 10 MG t} 10 MG Metoprolol Metoprolol No QD Metoprolol Succinate Succinate Succinate ER 25 MG ER 25 MG ER 25 MG Atorvastati Atorvastati No Atorvastat n Calcium n Calcium in Calcium 40 MG 40 MG 40 MG Aspir-81 81 Aspir-81 81 No 1{table QD Aspir-81 MG MG t} 81 MG Latanoprost Latanoprost No 1{drop_ QD Latanopros 0.005 % 0.005 % into_af t 0.005 % fected_ eye_in_ the[place]} Atorvastati Atorvastati No 1{table QD Atorvastat n Calcium n Calcium t} in Calcium 40 MG 40 MG 40 MG Metoprolol Metoprolol No QD Metoprolol Succinate Succinate Succinate ER 25 MG ER 25 MG ER 25 MG Aspir-81 81 Aspir-81 81 No 1{table QD Aspir-81 MG MG t} 81 MG LORazepam LORazepam No QD LORazepam 0.5 MG 0.5 MG 0.5 MG amLODIPine amLODIPine No amLODIPine Besylate 10 Besylate 10 Besylate MG MG 10 MG Daily Daily No Daily Vitamins Vitamins Vitamins Olmesartan Olmesartan No Olmesartan Medoxomil Medoxomil Medoxomil 40 MG 40 MG 40 MG hydroCHLORO hydroCHLORO No 1{table QD hydroCHLOR thiazide 25 thiazide 25 t_in_th Othiazide MG MG e_morni 25 MG ng} Equate Equate No Equate Loratadine Loratadine No 1{table QD Loratadine 10 MG 10 MG t} 10 MG PreserVisio PreserVisio No PreserVisi n AREDS 2 n AREDS 2 on AREDS 2 Atorvastati Atorvastati No Atorvastat n Calcium n Calcium in Calcium 40 MG 40 MG 40 MG Fiber Fiber No Fiber Choice Choice Choice Latanoprost Latanoprost No 1{drop_ QD Latanopros 0.005 % 0.005 % into_af t 0.005 % fected_ eye_in_ the_eve natalia} Ibuprofen Ibuprofen No Ibuprofen Acyclovir Acyclovir No QD Acyclovir 400 MG 400 MG 400 MG amLODIPine amLODIPine No 1{table QD amLODIPine Besylate 5 Besylate 5 t} Besylate 5 MG MG MG Alphagan P Alphagan P No 1{drop_ TID Alphagan P 0.1 % 0.1 % into_af 0.1 % fected_ eye} Vital Signs Vital Name Observation Time Observation Value Comments Source height 2021-11-24 10:30:00 64 [in_i] [facility] weight 2021-11-24 10:30:00 142 [lb_av] [facility] temperature 2021-11-24 10:30:00 97.6 [degF] [facility] bmi 2021-11-24 10:30:00 24.37 kg/m2 [facility] blood pressure 2021-11-24 10:30:00 130 mm[Hg] [facility] systolic [facility] blood pressure 2021-11-24 10:30:00 70 mm[Hg] [facility] - diastolic [facility] height 2021-11-03 10:50:00 64 [in_i] [facility] weight 2021-11-03 10:50:00 142.6 [lb_av] [facility] temperature 2021-11-03 10:50:00 97.5 [degF] [facility] bmi 2021-11-03 10:50:00 24.47 kg/m2 [facility] oximetry 2021-11-03 10:50:00 99 % [facility] respiratory rate 2021-11-03 10:50:00 18 /min [facility] blood pressure 2021-11-03 10:50:00 130 mm[Hg] Common [facility] - systolic [facility] blood pressure 2021-11-03 10:50:00 73 mm[Hg] [facility] - diastolic [facility] height 2021-10-22 10:00:00 64 [in_i] [facility] weight 2021-10-22 10:00:00 140 [lb_av] [facility] temperature 2021-10-22 10:00:00 98.2 [degF] Common S [facility]irit [facility] bmi 2021-10-22 10:00:00 24.03 kg/m2 [facility] blood pressure 2021-10-22 10:00:00 122 mm[Hg] [facility] - systolic [facility] blood pressure 2021-10-22 10:00:00 72 mm[Hg] [facility] - diastolic [facility] height 2021-09-29 10:15:00 64 [in_i] Common [facility] weight 2021-09-29 10:15:00 140 [lb_av] [facility] bmi 2021-09-29 10:15:00 24.03 kg/m2 [facility] blood pressure 2021-09-29 10:15:00 120 mm[Hg] [facility] - systolic [facility] blood pressure 2021-09-29 10:15:00 76 mm[Hg] [facility] - diastolic [facility] height 2021-09-23 14:45:00 64 [in_i] Common S pirit - [facility] weight 2021-09-23 14:45:00 140 [lb_av] Common S pirit - [facility] bmi 2021-09-23 14:45:00 24.03 kg/m2 Common S pirit - [facility] blood pressure 2021-09-23 14:45:00 122 mm[Hg] [facility] - systolic [facility] blood pressure 2021-09-23 14:45:00 78 mm[Hg] [facility] - diastolic [facility] height 2021-09-08 09:00:00 64 [in_i] Common S [facility] - [facility] weight 2021-09-08 09:00:00 140.5 [lb_av] [facility] - [facility] temperature 2021-09-08 09:00:00 97.6 [degF] Common S [facility]irit - [facility] bmi 2021-09-08 09:00:00 24.11 kg/m2 Common [facility] - [facility] blood pressure 2021-09-08 09:00:00 120 mm[Hg] [facility] - systolic [facility] blood pressure 2021-09-08 09:00:00 80 mm[Hg] [facility] - diastolic [facility] height 2021-09-03 12:00:00 64 [in_i] Common S pirit - [facility] weight 2021-09-03 12:00:00 144 [lb_av] Common S pirit - [facility] temperature 2021-09-03 12:00:00 98 [degF] Common S pirit - [facility] bmi 2021-09-03 12:00:00 24.71 kg/m2 Common S pirit - [facility] height 2021-08-24 15:30:00 64 [in_i] Common S pirit - [facility] weight 2021-08-24 15:30:00 144.0 [lb_av] Common [facility] bmi 2021-08-24 15:30:00 24.71 kg/m2 Common [facility] height 2021-07-20 10:00:00 64 [in_i] Common [facility] weight 2021-07-20 10:00:00 144.8 [lb_av] Common [facility] temperature 2021-07-20 10:00:00 97.1 [degF] Common S [facility]irit [facility] bmi 2021-07-20 10:00:00 24.85 kg/m2 [facility] oximetry 2021-07-20 10:00:00 99 % [facility] respiratory rate 2021-07-20 10:00:00 17 /min Comm on [facility] blood pressure 2021-07-20 10:00:00 131 mm[Hg] Common [facility] - systolic [facility] blood pressure 2021-07-20 10:00:00 65 mm[Hg] Common [facility] - diastolic [facility] height 2021-05-04 10:10:00 64 [in_i] Common [facility] weight 2021-05-04 10:10:00 146.1 [lb_av] [facility] temperature 2021-05-04 10:10:00 97.7 [degF] Common S pirit [facility] bmi 2021-05-04 10:10:00 25.08 kg/m2 [facility] 2021-05-04 10:10:00 100 % Common [facility] respiratory rate 2021-05-04 10:10:00 18 /min Comm on [facility] blood pressure 2021-05-04 10:10:00 127 mm[Hg] Common [facility] - systolic [facility] blood pressure 2021-05-04 10:10:00 70 mm[Hg] [facility] - diastolic [facility] height 2021-04-07 09:00:00 64 [in_i] Common [facility] weight 2021-04-07 09:00:00 149 [lb_av] Common [facility] bmi 2021-04-07 09:00:00 25.57 kg/m2 Common [facility] blood pressure 2021-04-07 09:00:00 120 mm[Hg] [facility] - systolic [facility] blood pressure 2021-04-07 09:00:00 78 mm[Hg] Common [facility] - diastolic [facility] Procedures Procedure Date / Time Performed Performing Clinician Sourc e XR LUMBAR SPINE 2021-08-26 15:32:43 Requisition, Paper [facility] FLEXION AND EXTENSION Medical Br anch 2 VW NOTICE OF PRIVACY 2021-08-26 15:03:32 Doctor Unassigned, No [facility] Name Medical Branch CONSENT/REFUSAL FOR 2021-08-26 15:03:02 Doctor Unassigned, No [facility] DIAGNOSIS AND Name Medical Branch TREATMENT ASSIGNMENT OF BENEFITS 2021-08-26 15:02:44 [facility] ASSIGNMENT OF BENEFITS 2020-01-14 17:44:14 Doctor Unassigned, No [facility] Medical Branch Encounters Start End Encounter Admission Attending Care Care Encounter Source Date/Time Date/Time Type Type Clinicians Facility Department ID 2021-11-09 [facility] [id number] Common 16:51:[address] [facility] 2021-10-18 Outpatient Munoz, [facility] [id number] Common 13:50:[address] [facility] 2021-09-20 Outpatient Munoz, [facility] [id number] Common 14:17:[address] [facility] 2021-05-03 Outpatient Munoz, [facility] [id number] Common 11:03:[address] [facility] 2021-03-31 Outpatient Munoz, [facility] [id number] Common 14:40:[address] [facility] 2021-03-31 Outpatient Munoz, STLMLC STLMLC [id number] Common 13:45:[id number] [facility] 2021-03-31 Outpatient Munoz, STLMLC STLMLC [id number] Common 12:51:[id number] [facility] 2021-03-31 Outpatient Munoz, STLMLC STLMLC [id number] Common 12:37:[id number] [facility] 2021-03-31 Outpatient Munoz, STLMLC STLMLC [id number] Common 11:15:[id number] [facility] 2021-11-24 2021-11-24 NON-BILLAB STLMLC STLMLC [id number] Common 00:00:00 00:00:00 LE VISIT Spiri [facility] 2021-11-11 2021-11-11 (TEL) STLMLC STLMLC [id number] Co mmon 00:00:00 00:00:00 [facility] 2021-11-03 2021-11-03 OFFICE STLMLC STLMLC [id number] Co mmon 00:00:00 00:00:00 VISIT Spirit ESTAB PT - CHI LEVEL 4 [facility] 2021-10-22 2021-10-22 OFFICE STLMLC STLMLC [id number] Co mmon 00:00:00 00:00:00 VISIT EST Spir it PT LEVEL 3 - [facility] 2021-10-13 2021-10-13 Outpatient R RADIOLOGY [facility] [id number] Univers 10:05:30 23:59:00 ity of [facility] 2021-10-13 2021-10-13 Hospital Radiology [facility] [id number] Univers 10:05:30 23:59:00 Encounter ANGLEKAVITA [id number] ity of [place] [id number] [facility] [id number] [place] [address] Branch 2021-10-11 2021-10-11 (TEL) STLMLC STLMLC [id number] Co mmon 00:00:00 00:00:00 [facility] 2021-09-29 2021-09-29 OFFICE STLMLC STLMLC [id number] Co mmon 00:00:00 00:00:00 VISIT EST Spir it PT LEVEL 3 [facility] 2021-09-24 2021-09-24 (TEL) STLMLC STLMLC [id number] Co mmon 00:00:00 00:00:00 [facility] 2021-09-23 2021-09-23 OFFICE STLMLC STLMLC [id number] Co mmon 00:00:00 00:00:00 VISIT EST Spir it PT LEVEL 3 [facility] 2021-09-08 2021-09-08 (TEL) STLMLC STLMLC [id number] Co mmon 00:00:00 00:00:00 [facility] 2021-09-08 2021-09-08 OFFICE STLMLC STLMLC [id number] Co mmon 00:00:00 00:00:00 VISIT EST Spir it PT LEVEL 3 [facility] 2021-09-03 2021-09-03 (TEL) STLMLC STLMLC [id number] Co mmon 00:00:00 00:00:00 [facility] 2021-09-03 2021-09-03 (TELEAUD) STLMLC STLMLC [id number] Common 00:00:00 00:00:00 AUDIO [facility] TELEMEDICI - [facility] NE [facility] 2021-08-26 2021-08-26 Outpatient R RADIOLOGY [facility] [id number] Univers 10:06:16 23:59:00 ity of [facility] 2021-08-26 2021-08-26 Hospital Radiology [facility] [id number] Univers 10:06:16 23:59:00 Encounter BAILEE [id number] ity of [place] [id number] [facility] [id number] [facility] 807 Branch 2021-08-26 2021-08-26 Orders Doctor ROSS [id number] Univers 00:00:00 00:00:00 Only Unassigned, MARIA [id number] ity of [facility] [id number] [facility] as [id number] [place] [id number] Branch 2021-08-24 2021-08-24 SUB ANNUAL STLMLC STLMLC [id number] Common 00:00:00 00:00:00 MCR [facility] WELLNESS - [facility] VISIT [facility] 2021-08-18 2021-08-18 Outpatient R RADIOLOGY [facility] [id number] Univers 00:00:00 00:00:00 ity of [facility] 2021-08-18 2021-08-18 (TEL) STLMLC STLMLC [id number] Co mmon 00:00:00 00:00:00 [facility] 2021-08-13 2021-08-13 (TEL) STLMLC STLMLC [id number] Co mmon 00:00:00 00:00:00 [facility] 2021-07-20 2021-07-20 OFFICE STLMLC STLMLC [id number] Co mmon 00:00:00 00:00:00 VISIT EST Spir it PT LEVEL 3 - [facility] 2021-07-19 2021-07-19 (TEL) STLMLC STLMLC [id number] Co mmon 00:00:00 00:00:00 [facility] 2021-05-26 2021-05-26 (TEL) STLMLC STLMLC [id number] Co mmon 00:00:00 00:00:00 [facility] 2021-05-25 2021-05-25 (TEL) STLMLC STLMLC [id number] Co mmon 00:00:00 00:00:00 [facility] 2021-05-14 2021-05-14 (TEL) STLMLC STLMLC [id number] Co mmon 00:00:00 00:00:00 [facility] 2021-05-04 2021-05-04 OFFICE STLMLC STLMLC [id number] Co mmon 00:00:00 00:00:00 VISIT Spirit ESTAB PT - CHI LEVEL 4 [facility] 2021-04-29 2021-04-29 (TEL) STLMLC STLMLC [id number] Co mmon 00:00:00 00:00:00 [facility] 2021-04-27 2021-04-27 (TEL) STLMLC STLMLC [id number] Co mmon 00:00:00 00:00:00 [facility] 2021-04-26 2021-04-26 (TEL) STLMLC STLMLC [id number] Co mmon 00:00:00 00:00:00 [facility] 2021-04-07 2021-04-07 (TEL) STLMLC STLMLC [id number] Co mmon 00:00:00 00:00:00 [facility] 2021-04-07 2021-04-07 OFFICE STLMLC STLMLC [id number] Co mmon 00:00:00 00:00:00 VISIT [facility] 4 [facility] 2020-11-10 2020-11-10 Outpatient STLMLC STLMLC [id number] Common 00:00:00 00:00:00 [facility] 2020-08-24 2020-08-24 Outpatient STLMLC STLMLC [id number] Common 00:00:00 00:00:00 [facility] 2020-08-17 2020-08-17 Outpatient STLMLC STLMLC [id number] Common 00:00:00 00:00:00 [facility] 2020-08-06 2020-08-06 Outpatient STLMLC STLMLC [id number] Common 00:00:00 00:00:00 [facility] 2020-08-06 2020-08-06 Outpatient STLMLC STLMLC [id number] Common 00:00:00 00:00:00 [facility] 2020-07-27 2020-07-27 Outpatient STLMLC STLMLC [id number] Common 00:00:00 00:00:00 [facility] 2020-07-22 2020-07-22 Outpatient STLMLC STLMLC [id number] Common 00:00:00 00:00:00 [facility] 2020-07-13 2020-07-13 Outpatient STLMLC STLMLC [id number] Common 00:00:00 00:00:00 [facility] 2020-07-06 2020-07-06 Outpatient STLMLC STLMLC [id number] Common 00:00:00 00:00:00 [facility] 2020-07-03 2020-07-03 Outpatient STLMLC STLMLC [id number] Common 00:00:00 00:00:00 [facility] 2020-07-03 2020-07-03 Outpatient STLMLC STLMLC [id number] Common 00:00:00 00:00:00 [facility] 2020-06-19 2020-06-19 Outpatient STLMLC STLMLC [id number] Common 00:00:00 00:00:00 [facility] 2020-06-17 2020-06-17 Outpatient STLMLC STLMLC [id number] Common 00:00:00 00:00:00 [facility] 2020-06-16 2020-06-16 Outpatient STLMLC STLMLC [id number] Common 00:00:00 00:00:00 [facility] 2020-06-16 2020-06-16 Outpatient STLMLC STLMLC [id number] Common 00:00:00 00:00:00 [facility] 2020-05-12 2020-05-12 Outpatient STLMLC STLMLC [id number] Common 00:00:00 00:00:00 [facility] 2020-05-11 2020-05-11 Outpatient STLMLC STLMLC [id number] Common 00:00:00 00:00:00 [facility] 2020-05-08 2020-05-08 Outpatient STLMLC STLMLC [id number] Common 00:00:00 00:00:00 [facility] 2020-04-30 2020-04-30 Outpatient STLMLC STLMLC [id number] Common 00:00:00 00:00:00 [facility] 2020-04-15 2020-04-15 Outpatient STLMLC STLMLC [id number] Common 00:00:00 00:00:00 [facility] 2020-04-14 2020-04-14 Outpatient STLMLC STLMLC [id number] Common 00:00:00 00:00:00 [facility] 2020-04-10 2020-04-10 Outpatient STLMLC STLMLC [id number] Common 00:00:00 00:00:00 [facility] 2020-04-03 2020-04-03 Outpatient STLMLC STLMLC [id number] Common 00:00:00 00:00:00 [facility] 2020-03-27 2020-03-27 Outpatient STLMLC STLMLC [id number] Common 00:00:00 00:00:00 [facility] 2020-03-25 2020-03-25 Outpatient STLMLC STLMLC [id number] Common 00:00:00 00:00:00 [facility] 2020-03-24 2020-03-24 Outpatient STLMLC STLMLC [id number] Common 00:00:00 00:00:00 [facility] 2020-03-18 2020-03-18 Outpatient STLMLC STLMLC [id number] Common 00:00:00 00:00:00 [facility] 2020-02-04 2020-02-04 Outpatient STLMLC STLMLC [id number] Common 00:00:00 00:00:00 [facility] 2020-01-24 2020-01-24 Outpatient STLMLC STLMLC [id number] Common 00:00:00 00:00:00 [facility] 2020-01-14 2020-01-14 Hospital Radiology [facility] [id number] 11:45:29 23:59:00 Encounter [place] [id number] [place] [id number] [place] [id number] 2020-01-14 2020-01-14 [facility] Radiology [facility] [id number] [facility] 11:45:29 23:59:00 Encounter Steele [id number] ity of [place] [id number] [facility] [id number] [facility] 800 Branch 2020-01-14 2020-01-14 Outpatient R RADIOLOGY [facility] [id number] Univers 00:00:00 00:00:00 ity of [facility] 2020-01-14 2020-01-14 Orders Doctor HAWKINS [id number] 00:00:00 00:00:00 Only Unassigned, MARIA [id number] [facility] [id number] 2020-01-14 2020-01-14 Orders Doctor HAWKINS [id number] Univers 00:00:00 00:00:00 Only Unassigned, MARIA [id number] ity of [place] [facility] [id number] [facility] [id number] [facility] 009 Branch 2019-11-13 2019-11-13 Out[facility] [id number] Common 15:40:00 15:40:[address] [facility] 2019-09-20 2019-09-20 Outpatient [facility] [id number] Common 07:38:00 07:38:[address] [facility] 2019-08-22 2019-08-22 Outpatient [facility] [id number] Common 13:35:00 13:35:[address] [facility] 2019-08-19 2019-08-19 Outpatient [facility] [id number] Common 13:23:00 13:23:[address] [facility] 2019-08-12 2019-08-12 Outpatient [facility] [id number] Common 15:01:00 15:01:[address] [facility] 2019-08-08 2019-08-08 Outpatient [facility] [id number] Common 13:00:00 13:00:[address] [facility] 2019-08-08 2019-08-08 Outpatient Candido [place] [id number] Common 13:00:00 13:00:[address] [facility] 2019-06-04 2019-06-04 Outpatient Candido [place] [id number] Common 10:49:00 10:49:[address] [employer] Sp[address] [facility] Results This patient has no known results.
[2021-12-29] MEDS ORDERED: KETOROLAC 30 MG/ML INJ ONE (07:38)
[2021-12-29] MEDS ORDERED: DIAZEPAM 5 MG TABLET ONE (07:38)
--- NOTE | 2021-12-29 08:41 | RAD REPORT ---
EXAM DESCRIPTION: RAD - Knee Left 3 View - 12/29/2021 8:30 am CLINICAL HISTORY: PAIN COMPARISON: Knee Left Wo Cont dated 09/17/2021 FINDINGS/IMPRESSION: No acute fracture. No malalignment. No significant focal degenerative changes.
--- NOTE | 2021-12-29 08:41 | RAD REPORT ---
EXAM DESCRIPTION: RAD - Hip Left 2 View - 12/29/2021 8:29 am CLINICAL HISTORY: PAIN COMPARISON: No comparisons FINDINGS/IMPRESSION: No acute fracture. No malalignment. No significant focal degenerative changes.
--- NOTE | 2021-12-29 09:04 | EDPHYS ---
Physician Documentation [facility] Name: Abby Main Age: 76 yrs Sex: Female : 1945 Arrival Date: 12/29/2021 Time: 07:18 Bed 11 Private MD: ED Physician Sly Vazquez HPI: 12/29 07:28 This 76 yrs old Female presents to ER via Wheelchair with complaints of Hip Pain, Knee ms3 Pain. 07:28 The patient or guardian reports pain. that occurred [facility] with stairs. The ms3 complaints affect the left hip and left knee. Onset: The symptoms/episode began/occurred 4 day(s) ago. Modifying factors: The symptoms are alleviated by nothing, the symptoms are aggravated by nothing. Modifying factors: The symptoms are alleviated by the symptoms are aggravated by weight bearing. Associated signs and symptoms: Loss of consciousness: the patient experienced no loss of consciousness, Pertinent positives: None. Pertinent negatives: fever. Severity of symptoms: At their worst the symptoms were severe, a " 10" out of "10", in the emergency department the symptoms have improved, a " 6" out of "10". 76-year-old female with past medical history of hypertension and hyperlipidemia presents for left hip and left knee pain. Patient states she had orthoscopic knee surgery on her left knee 7 weeks ago. Patient states she was at her [place] [facility] going up and down multiple stairs when her left hip and left knee began hurting. Patient states when the pain is at its worst it is a 10/10. Patient states pain is currently a 6/10 and aching. Patient states the pain is worse with ambulation. Patient denies alleviating factors. Patient states she has taken tramadol and ibuprofen without relief.. Historical: - Allergies: 07:24 Codeine (Vomiting); jl7 07:24 Famotidine; (stomach pain); jl7 07:24 Zoloft; 07:24 Macrobid; (Stomach ache); 07:24 Flagyl (Nausea, stomach ache); jl7 - Home Meds: 07:24 amlodipine 5 mg tab 1 tab once daily [Active]; atorvastatin 40 mg Oral tab 1 tab once jl7 daily [Active]; hydrochlorothiazide 25 mg Oral tab 1 tab once daily [Active]; - PMHx: 07:24 Hypertension; High Cholesterol; jl7 - PSHx: 07:24 left knee; Cholecystectomy; jl7 - Immunization history:: Client reports receiving the 2nd dose of the Covid vaccine. - Social history:: Smoking status: Patient denies any tobacco usage or history of. ROS: 07:28 Constitutional: Negative for fever, and chills. Neck: Negative for injury, pain, and ms3 swelling, Cardiovascular: Negative for chest pain, and palpitations. Respiratory: Negative for shortness of breath, cough, wheezing, and pleuritic chest pain, Abdomen/GI: Negative for abdominal pain, nausea, vomiting, diarrhea, and constipation, Skin: Negative for injury, rash, and discoloration, Neuro: Negative for headache, weakness, numbness, tingling. 07:28 MS/extremity: Positive for pain, of the left hip and left knee. Exam: 07:30 Constitutional: This is a well developed, well nourished patient who is awake, alert, ms3 and in no acute distress. Head/Face: Normocephalic, atraumatic. Neck: Trachea midline, no cervical lymphadenopathy. Supple, full range of motion without nuchal rigidity, or vertebral point tenderness. No Meningismus. Chest/axilla: Normal chest wall appearance and motion. Nontender with no deformity. Cardiovascular: Regular rate and rhythm with a normal S1 and S2. No gallops, murmurs, or rubs. Normal PMI, no JVD. No pulse deficits. Respiratory: Lungs have equal breath sounds bilaterally, clear to auscultation and percussion. No rales, rhonchi or wheezes noted. No increased work of breathing, no retractions or nasal flaring. Abdomen/GI: Soft, non-tender, with normal bowel sounds. No distension or tympany. No guarding or rebound. No evidence of tenderness throughout. Skin: Warm, dry with normal turgor. Normal color with no rashes, no lesions, and no evidence of cellulitis. 07:30 Musculoskeletal/extremity: Extremities: noted in the left knee: pain, noted in the left knee: pain. Vital Signs: 07:22 BP 124 / 77; Pulse 90; Resp 17; Temp 97.7; Pulse Ox 100% ; jl7 MDM: 07:30 Differential diagnosis: femoral neck fracture, femoral shaft fracture, bursitis, ms3 arthritis, strain, Piriformis spasm. 07:34 Patient medically screened. ms3 09:04 Data reviewed: vital signs, nurses notes, radiologic studies. Counseling: I had a ms3 detailed discussion with the patient and/or guardian regarding: the historical points, exam findings, and any diagnostic results supporting the discharge/admit diagnosis, radiology results, the need for outpatient follow up, to return to the emergency department if symptoms worsen or persist or if there are any questions or concerns that arise at home. 09:06 ED course: Patient with improvement in her symptoms after Toradol and Valium. Left hip ms3 pain possibly associated with piriformis spasm. Will give patient prescription for Flexeril. Patient to follow-up with Dr. Ellsworth in 2 to 3 days. Patient understands agrees with plan. All questions were answered. Return precautions discussed include worsening symptoms, or any other concerns. 12/29 07:27 Order name: Hip Left 2 View XRAY; Complete Time: 08:42 ms3 12/29 07:27 Order name: Knee Left 3 View XRAY; Complete Time: 08:42 ms3 Administered Medications: 07:48 Drug: Ketorolac 15 mg Route: IM; Site: left deltoid; jl7 09:35 Follow up: Response: No adverse reaction iw 07:48 Drug: Valium (diazepam) 5 mg Route: PO; jl7 09:34 Follow up: Response: No adverse reaction iw Disposition Summary: 12/29/21 09:04 Discharge Ordered Location: Home ms3 Condition: Stable ms3 Diagnosis - Pain in left hip ms3 - Pain in left knee ms3 Followup: ms3 - With: Brown Ellsworth MD - When: 2 - 3 days - Reason: Recheck today's complaints Discharge Instructions: - Discharge Summary Sheet ms3 - Joint Pain ms3 - Muscle Cramps and Spasms ms3 - Musculoskeletal Pain ms3 - Acute Knee Pain, Adult ms3 Forms: - Medication Reconciliation Form ms3 - Thank You Letter ms3 - Antibiotic Education ms3 - Prescription Opioid Use ms3 Prescriptions: - Cyclobenzaprine 5 mg Oral Tablet - take 1 tablet by ORAL route 3 times per day As needed; 15 tablet; Refills: 0, ms3 Product Selection Permitted Signatures: Dispatcher [employer] Ezra Castellanos RN RN jl7 Sly Vazquez DO DO ms3 Neeta Rizo RN iw Corrections: (The following items were deleted from the chart) 07:32 07:24 Allergies: Tramadol HCl; jl7 jl7 09:05 09:04 Pain in right shoulder ms3 ms3 09:05 09:04 Pain in right hip ms3 ms3
--- NOTE | 2021-12-29 09:04 | ER ---
Nurse's Notes [facility] Name: Abby Main Age: 76 yrs Sex: Female : 1945 Arrival Date: 12/29/2021 Time: 07:18 Bed 11 Private MD: Diagnosis: Pain in left hip;Pain in left knee Presentation: 12/29 07:22 Chief complaint: Patient states: Left knee surgery 7 weeks ago, walked up and down jl7 stairs for 3 days and pain started to left hip and left knee pain, unable to ambulate due to the pain. Coronavirus screen: At this time, the client does not indicate any symptoms associated with coronavirus-19. Ebola Screen: No symptoms or risks identified at this time. Initial Sepsis Screen: Does the patient meet any 2 criteria? No. Patient's initial sepsis screen is negative. Does the patient have a suspected source of infection? No. Patient's initial sepsis screen is negative. Risk Assessment: Do you want to hurt yourself or someone else? Patient reports no desire to harm self or others. Onset of symptoms was December 26, 2021. 07:22 Method Of Arrival: Wheelchair jl7 07:22 Acuity: SUZETTE 4 jl7 Triage Assessment: 07:24 General: Appears in no apparent distress. uncomfortable, Behavior is calm, cooperative, jl7 appropriate for age. Pain: Complains of pain in left hip and left knee Pain currently is 6 out of 10 on a pain scale. at worst was 10 out of 10 on a pain scale. Musculoskeletal: Swelling present in left knee. Historical: - Allergies: 07:24 Codeine (Vomiting); jl7 07:24 Famotidine; (stomach pain); jl7 07:24 Zoloft; jl7 07:24 Macrobid; (Stomach ache); jl7 07:24 Flagyl (Nausea, stomach ache); jl7 - Home Meds: 07:24 amlodipine 5 mg tab 1 tab once daily [Active]; atorvastatin 40 mg Oral tab 1 tab once jl7 daily [Active]; hydrochlorothiazide 25 mg Oral tab 1 tab once daily [Active]; - PMHx: 07:24 Hypertension; High Cholesterol; jl7 - PSHx: 07:24 left knee; Cholecystectomy; jl7 - Immunization history:: Client reports receiving the 2nd dose of the Covid vaccine. - Social history:: Smoking status: Patient denies any tobacco usage or history of. Screenin:34 Abuse screen: Denies threats or abuse. Denies injuries from another. Nutritional iw screening: No deficits noted. Tuberculosis screening: No symptoms or risk factors identified. Fall Risk None identified. Assessment: 09:15 General: Appears in no apparent distress. Behavior is calm, cooperative. Pain: iw Complains of pain in left leg and left knee and left hip. Neuro: Level of Consciousness is awake, alert, obeys commands, Oriented to person, place, time, situation. Derm: Skin is intact, is healthy with good turgor. Vital Signs: 07:22 BP 124 / 77; Pulse 90; Resp 17; Temp 97.7; Pulse Ox 100% ; jl7 ED Course: 07:18 Patient arrived in ED. rg4 07:20 Sly Vazquez DO is Attending Physician. ms3 07:24 Triage completed. jl7 07:24 Arm band placed on right wrist. jl7 07:33 Ezra Godwin RN is Primary Nurse. jl7 08:26 Hip Left 2 View XRAY In Process Unspecified. EDMS 08:26 Knee Left 3 View XRAY In Process Unspecified. EDMS 09:04 Brown Ellsworth MD is Referral Physician. ms3 09:34 Patient has correct armband on for positive identification. iw 09:34 No provider procedures requiring assistance completed. Patient did not have IV access iw during this emergency room visit. Administered Medications: 07:48 Drug: Ketorolac 15 mg Route: IM; Site: left deltoid; jl7 09:35 Follow up: Response: No adverse reaction iw 07:48 Drug: Valium (diazepam) 5 mg Route: PO; jl7 09:34 Follow up: Response: No adverse reaction iw Medication: 09:34 VIS not applicable for this client. iw Outcome: 09:04 Discharge ordered by . ms3 09:34 Discharged to home via wheelchair, with family. iw 09:34 Condition: good 09:34 Discharge instructions given to patient, family, Instructed on discharge instructions, follow up and referral plans. medication usage, Demonstrated understanding of instructions, follow-up care, medications, Prescriptions given X 1. 09:34 Patient left the ED. iw Signatures: Dispatcher [employer] Neeta Shahid RN RN Isabel Cortés rg4 Ezra Godwin RN RN jl7 Sly Vazquez DO DO ms3 Corrections: (The following items were deleted from the chart) 07:32 07:24 Allergies: Tramadol HCl; jlBrandon jl7
[2021-12-29 09:44] VITALS: BP 124/77; TEMP 97.7; O2SAT 100
== END 2021-12-29 09:34 | disposition home or self-care (01) ==
LOC: ER 07:13
DX: M25.552 Pain in left hip (principal); M25.562 Pain in left knee; I10 Essential (primary) hypertension; E78.00 Pure hypercholesterolemia, unspecified; Z88.5 Allergy status to narcotic agent; Z88.8 Allergy status to other drugs, medicaments and biological substances
CPT/HCPCS: 96372; 99283